=== PATIENT | female | born 1965 | race Caucasian/White ===

== ENCOUNTER 2017-10-03 17:16 | Inpatient (IN) ==
[2017-10-03] MEDS ORDERED: Pantoprazole Inj 40 MG Vial IV.PUSH ONE (17:38)
[2017-10-03] MEDS ORDERED: Sod Chloride 0.9% Inj 1,000 ML IV.SIG ONE ×3 (17:38→18:44)
[2017-10-03] MEDS ORDERED: Pantoprazole Inj 80 MG in Sodium Chlor 0.9% Inj 35 ML IV.SIG ONE (17:41)
--- NOTE | 2017-10-03 17:49 | ED ---
HPI General Chief complaint: Abdominal Pain Stated complaint: GI Bleed Time Seen by Provider: 10/03/17 17:38 Source: patient and EMS Mode of arrival: EMS Limitations: no limitations History of Present Illness HPI Narrative: Patient is a 52-year-old female presenting to the emergency department for evaluation of GI bleed. Patient has been having coffee-ground emesis and bleeding from her rectum since 3:00 this morning. Patient complains of abdominal pain that is dull, constant. Symptom onset was sudden, symptoms are moderate in nature. EMS stated the patient's blood pressure was in the 80s systolic when they arrived on scene. Patient received a liter of IV fluids in route to the hospital. Patient denies any shortness of breath, chest pain, dizziness, headache, alcohol consumption. She states she had a history of GI bleed many years ago. MD complaint: coffee ground emesis and gross hematochezia Onset (ago): hour(s) Pain Consistency: colicky Severity: mild Relieving factors: none Exacerbating factors: none Context: history of GI bleed and liver disease Associated symptoms: denies other symptoms Related Data Home Medications Medication Instructions Recorded Confirmed No Known Home Medications 10/03/17 10/03/17 Allergies Allergy/AdvReac Type Severity Reaction Status Date / Time No Known Allergies Allergy Verified 10/03/17 17:38 Review of Systems ROS: all other systems reviewed are negative PMFSH History History Provided By: Patient Medical History Medical History Cirrhosis (Chronic) Family History Family History Other No significant family history Social History Social History Second Hand Smoke Exposure: Yes Smoking Status: Current every day smoker Tobacco Type: Cigarettes How Often Do You Have a Drink Containing Alcohol: 2 to 4 times a month Recent Travel in [facility] within the Last 8 Weeks: No Recent Out of Country Travel within the Last 8 Weeks: No Exam Narrative Exam Narrative: GENERAL: Well-developed, well-nourished, alert female. Presenting in no acute distress. SKIN: Focused skin assessment warm/dry. Jaundiced HEAD: Atraumatic. Normocephalic. EYES: Pupils equal and round. Positive scleral icterus. No injection or drainage. ENT: No nasal bleeding or discharge. Mucous membranes pink and moist. NECK: Trachea midline. No JVD. CARDIOVASCULAR: Tachycardic. No murmur appreciated. RESPIRATORY: No accessory muscle use. Clear to auscultation. Breath sounds equal bilaterally. GASTROINTESTINAL: Abdomen soft, mildly tender to palpation diffusely, nondistended. Hepatic and splenic margins not palpable. No rebound, no guarding MUSCULOSKELETAL: No obvious deformities. No clubbing. No cyanosis. No edema. RECTAL EXAM: No masses or tenderness, alfred bright red blood noted, positive Hemoccult NEUROLOGICAL: Awake and alert. No obvious cranial nerve deficits. Motor grossly within normal limits. Normal speech. PSYCHIATRIC: Appropriate mood and affect; insight and judgment normal. Procedures EJ/Peripheral Line Neck R: Time Out Performed: No Skin Cleansed in Sterile Fashion: Yes Size (gauge): 20 IV Secured and Dressing Applied: Yes Patient Tolerated Procedure: well Course Reevaluation(s) Reevaluation #1: Patient's hemoglobin is 4.7, 4 units of blood will be ordered Reevaluation #2: Dr. Aquino is in the ER evaluating patient - plan for blood transfusion, fft - will stabilize patient prior to EGD Case reviewed with Dr. Carter who accepts pt to service Initial Documented Vital Signs Pulse Oximetry 100 10/03/17 17:38 Last Documented Vital Signs Temperature 98 F 10/03/17 18:01 Pulse Rate 94 H 10/03/17 20:07 Respiratory Rate 14 10/03/17 20:07 Blood Pressure 101/54 L 10/03/17 20:07 Pulse Oximetry 100 10/03/17 20:07 Critical Care Time Critical Care Time: Yes Total Critical Care Time: 60 Attestation: Aggregate critical care time was 60 minutes. Time to perform other separately billable procedures was not included in the critical care time. My time did not include minutes spent treating any other patients simultaneously or on activities that did not directly contribute to the patient's treatment. The services I provided to this patient were to treat and/or prevent clinically significant deterioration that could result in: , decompensation, deterioration I provided critical care services requiring my management, as noted below: Chart data review, documentation time, medication orders and management, vital sign assessments/reviewing monitor data, ordering and reviewing lab tests, ordering and interpreting/reviewing x-rays and diagnostic studies, care of the patient and discussion of the patient with the admitting physicians. Medical Decision Making TAIWO Attestation TAIWO supervised visit: Yes Attestation: I, Dr. Ramos, have reviewed the advance practice practitioner's documentation and am in agreement, met with the patient face to face, made the diagnosis, and the medical decision making was done by me. *My assessment and Findings: GI bleed - patient with bright red blood per rectum as well as coffee ground since 3am this morning. Patient is tachycardic and hypotensive, 4 units of blood was ordered. Patient will be started on octreotide drip as well as Protonix drip, Protonix bolus was administered. IV fluid was ordered. Case discussed with Dr. Aquino with GI who will see patient in consult. MDM Narrative Medical decision making narrative: Patient is a 52-year-old female presenting with bright red blood from her rectum and coffee-ground emesis it started 3 AM this morning. Patient was borderline tachycardic and hypotensive on arrival. Labs imaging ordered and pending. IV access was established by EMS. Patient was placed on telemetry monitoring continuous pulse oximetry per type and screen ordered, Hemoccult was positive. Protonix bolus and drip was ordered. Discussed with my attending physician, she recommended Sandostatin drip. Please see her documentation. Dr. Ramos also discussed with machine wiper who accepted admission. Admit orders placed. Lab Data Result diagrams: 10/03/17 18:30 10/03/17 18:30 Lab Results 10/03/17 10/03/17 10/03/17 Range/Units 18:30 18:30 18:30 WBC 12.8 H (4.0-11.0) th/mm3 RBC 1.33 L (4.00-5.30) mil/mm3 Hgb 4.7 L* (11.6-15.3) gm/dL POC Hgb (Calc) (11.6-15.3) g/dL Hct 14.6 L* (35.0-46.0) % POC Hct (35-46.0) % MCV 109.6 H (80.0-100.0) fL MCH 35.0 H (27.0-34.0) pg MCHC 31.9 L (32.0-36.0) % RDW 18.4 H (11.6-17.2) % Plt Count 94 L (150-450) th/mm3 MPV 7.9 (7.0-11.0) fL Prelim Diff (Auto) Slide review pending Neut % (Auto) 84.0 H (16.0-70.0) % Lymph % (Auto) 9.2 (9.0-44.0) % [place] % (Auto) 5.4 (0.0-8.0) % Eos % (Auto) 0.6 (0.0-4.0) % Baso % (Auto) 0.8 (0.0-2.0) % Neut # (Auto) 10.8 H (1.8-7.7) th/mm3 Lymph # (Auto) 1.2 (1.0-4.8) th/mm3 [place] # (Auto) 0.7 (0.0-0.9) th/mm3 Eos # (Auto) 0.1 (0.0-0.4) th/mm3 Baso # (Auto) 0.1 (0.0-0.2) th/mm3 WBC Differential . Diff Scan Auto diff confirmed Differential Comment . POC Sodium (137-144) mmol/L Sodium 146 H (136-145) meq/L POC Potassium (3.6-5.0) mmol/L Potassium 4.9 (3.5-5.1) meq/L POC Chloride (102-111) mmol/L Chloride 115 H (98-107) meq/L Carbon Dioxide 18.9 L (21.0-32.0) meq/L Anion Gap 12 (5-15) meq/L POC BUN (5-21) mg/dL BUN 38 H (7-18) mg/dL Creatinine 0.85 (0.50-1.00) mg/dL POC Creatinine (0.6-1.3) mg/dL Estimated GFR 70 L (>89) mL/min POC Glucose (68-110) mg/dL Random Glucose 104 (74-106) mg/dL Calcium 6.9 L* (8.5-10.1) mg/dL Prot Corrected Calcium 8.9 (8.5-10.1) mg/dL Magnesium 1.6 (1.5-2.5) mg/dL Total Bilirubin 3.9 H (0.2-1.0) mg/dL AST 37 (15-37) U/L ALT 15 (10-53) U/L Alkaline Phosphatase 227 H (45-117) U/L Ammonia (11-32) mcmol/L Total Protein 3.6 L (6.4-8.2) g/dL Albumin 1.2 L (3.4-5.0) g/dL Lipase 404 H (73-393) U/L Serum Alcohol Less than 3 (0-5) mg/dL Blood Type AB Negative MTS Gel Crossmatch 10/03/17 10/03/17 10/03/17 Range/Units 18:30 18:30 18:45 WBC (4.0-11.0) th/mm3 RBC (4.00-5.30) mil/mm3 Hgb (11.6-15.3) gm/dL POC Hgb (Calc) (11.6-15.3) g/dL Hct (35.0-46.0) % POC Hct Less than 15.0 L* (35-46.0) % MCV (80.0-100.0) fL MCH (27.0-34.0) pg MCHC (32.0-36.0) % RDW (11.6-17.2) % Plt Count (150-450) th/mm3 MPV (7.0-11.0) fL Prelim Diff (Auto) Neut % (Auto) (16.0-70.0) % Lymph % (Auto) (9.0-44.0) % [place] % (Auto) (0.0-8.0) % Eos % (Auto) (0.0-4.0) % Baso % (Auto) (0.0-2.0) % Neut # (Auto) (1.8-7.7) th/mm3 Lymph # (Auto) (1.0-4.8) th/mm3 [place] # (Auto) (0.0-0.9) th/mm3 Eos # (Auto) (0.0-0.4) th/mm3 Baso # (Auto) (0.0-0.2) th/mm3 WBC Differential Diff Scan Differential Comment POC Sodium 144 (137-144) mmol/L Sodium (136-145) meq/L POC Potassium 4.8 (3.6-5.0) mmol/L Potassium (3.5-5.1) meq/L POC Chloride 112 H (102-111) mmol/L Chloride (98-107) meq/L Carbon Dioxide (21.0-32.0) meq/L Anion Gap (5-15) meq/L POC BUN 35 H (5-21) mg/dL BUN (7-18) mg/dL Creatinine (0.50-1.00) mg/dL POC Creatinine 0.8 (0.6-1.3) mg/dL Estimated GFR (>89) mL/min POC Glucose 107 (68-110) mg/dL Random Glucose (74-106) mg/dL Calcium (8.5-10.1) mg/dL Prot Corrected Calcium (8.5-10.1) mg/dL Magnesium (1.5-2.5) mg/dL Total Bilirubin (0.2-1.0) mg/dL AST (15-37) U/L ALT (10-53) U/L Alkaline Phosphatase (45-117) U/L Ammonia 67 H (11-32) mcmol/L Total Protein (6.4-8.2) g/dL Albumin (3.4-5.0) g/dL Lipase (73-393) U/L Serum Alcohol (0-5) mg/dL Blood Type MTS Gel Crossmatch See Detail 10/03/17 Range/Units 18:53 WBC (4.0-11.0) th/mm3 RBC (4.00-5.30) mil/mm3 Hgb (11.6-15.3) gm/dL POC Hgb (Calc) (11.6-15.3) g/dL Hct (35.0-46.0) % POC Hct (35-46.0) % MCV (80.0-100.0) fL MCH (27.0-34.0) pg MCHC (32.0-36.0) % RDW (11.6-17.2) % Plt Count (150-450) th/mm3 MPV (7.0-11.0) fL Prelim Diff (Auto) Neut % (Auto) (16.0-70.0) % Lymph % (Auto) (9.0-44.0) % [place] % (Auto) (0.0-8.0) % Eos % (Auto) (0.0-4.0) % Baso % (Auto) (0.0-2.0) % Neut # (Auto) (1.8-7.7) th/mm3 Lymph # (Auto) (1.0-4.8) th/mm3 [place] # (Auto) (0.0-0.9) th/mm3 Eos # (Auto) (0.0-0.4) th/mm3 Baso # (Auto) (0.0-0.2) th/mm3 WBC Differential Diff Scan Differential Comment POC Sodium (137-144) mmol/L Sodium (136-145) meq/L POC Potassium (3.6-5.0) mmol/L Potassium (3.5-5.1) meq/L POC Chloride (102-111) mmol/L Chloride (98-107) meq/L Carbon Dioxide (21.0-32.0) meq/L Anion Gap (5-15) meq/L POC BUN (5-21) mg/dL BUN (7-18) mg/dL Creatinine (0.50-1.00) mg/dL POC Creatinine (0.6-1.3) mg/dL Estimated GFR (>89) mL/min POC Glucose (68-110) mg/dL Random Glucose (74-106) mg/dL Calcium (8.5-10.1) mg/dL Prot Corrected Calcium (8.5-10.1) mg/dL Magnesium (1.5-2.5) mg/dL Total Bilirubin (0.2-1.0) mg/dL AST (15-37) U/L ALT (10-53) U/L Alkaline Phosphatase (45-117) U/L Ammonia (11-32) mcmol/L Total Protein (6.4-8.2) g/dL Albumin (3.4-5.0) g/dL Lipase (73-393) U/L Serum Alcohol (0-5) mg/dL Blood Type MTS Gel Crossmatch See Detail Discharge Plan Discharge Disposition Patient Disposition: 30 Still Patient Discharge Condition Condition: Critical Discharge Details Diagnosis: Acute GI bleeding Physicians Team ED Provider: Conchis Ramos ED Midlevel Provider: Jennifer Vanegas Primary Care Provider: UNKNOWN, Attending Provider: Myron Stapleton Other Providers: Aquiles Joyner Status ED Status: Admitted Patient
[2017-10-03] MEDS ORDERED: Octreotide Inj 500 MCG in Sodium Chlor 0.9% Inj 500 ML IV.CONT SCH (18:00)
[2017-10-03 18:50] LABS: Baso # (Auto) 0.1 th/mm3 (0.0-0.2); Baso % (Auto) 0.8 % (0.0-2.0); Eos # (Auto) 0.1 th/mm3 (0.0-0.4); Eos % (Auto) 0.6 % (0.0-4.0); Lymph # (Auto) 1.2 th/mm3 (1.0-4.8); Lymph % (Auto) 9.2 % (9.0-44.0); Mean Corpuscular HGB Conc 31.9 % (32.0-36.0); Mean Corpuscular Volume 109.6 fL (80.0-100.0); Mean Platelet Volume 7.9 fL (7.0-11.0); Mono # (Auto) 0.7 th/mm3 (0.0-0.9); Mono % (Auto) 5.4 % (0.0-8.0); Neut # (Auto) 10.8 th/mm3 (1.8-7.7); Platelet Count 94 th/mm3 (150-450); Red Blood Count 1.33 mil/mm3 (4.00-5.30); Red Cell Distribution Width 18.4 % (11.6-17.2); White Blood Count 12.8 th/mm3 (4.0-11.0)
[2017-10-03 18:53] LABS: Hematocrit 14.6 % (35.0-46.0); Hemoglobin 4.7 gm/dL (11.6-15.3)
[2017-10-03 19:33] LABS: Alanine Aminotransferase 15 U/L (10-53); Albumin 1.2 g/dL (3.4-5.0); Alkaline Phosphatase 227 U/L (45-117); Anion Gap 12 meq/L (5-15); Aspartate Aminotransferase 37 U/L (15-37); Blood Urea Nitrogen 38 mg/dL (7-18); Calcium 6.9 mg/dL (8.5-10.1); Carbon Dioxide 18.9 meq/L (21.0-32.0); Chloride 115 meq/L (98-107); Glomerular Filtration Rate 70 mL/min (>89); Glucose,Random 104 mg/dL (74-106); Lipase 404 U/L (73-393); Magnesium 1.6 mg/dL (1.5-2.5); Potassium 4.9 meq/L (3.5-5.1); Sodium 146 meq/L (136-145); Total Protein 3.6 g/dL (6.4-8.2)
[2017-10-03] MEDS: Pantoprazole Inj 80 MG in Sodium Chlor 0.9% Inj 100 ML IV.CONT SCH (19:49)
[2017-10-03] MEDS: Octreotide Inj 500 MCG in Sodium Chlor 0.9% Inj 500 ML IV.CONT SCH (19:49)
[2017-10-03] MEDS ORDERED: Bisacodyl 10 MG Supp RECTAL PRN (20:08)
[2017-10-03] MEDS ORDERED: Acetaminophen 325 MG Tablet PO PRN (20:08)
--- NOTE | 2017-10-03 20:18 | P.HPCC ---
History of Present Illness Service: Critical care medicine Primary Care Physician: UNKNOWN Chief Complaint: Hematemesis/ History of Present Illness: This is a 52-year-old female. Date of admission 10/03/2017. Past medical history includes hepatitis, colitis, acute blood loss anemia and prior GI bleed. According to mother at bedside, patient has been having coffee- ground emesis and bleeding from her rectum since 3:00 this morning. She states she paid housekeeping $20 to clean up the amount of blood. Patient complains of abdominal pain that is dull, constant. Symptom onset was sudden, symptoms are moderate in nature. EMS stated the patient's blood pressure was in the 80s systolic when they arrived on scene. Patient received a liter of IV fluids in route to the hospital. Received an additional 3 L normal saline in ED. Hemoglobin was noted to be 4.7. Platelets are low at 94. Currently receiving 40 PRBCs and 2 FFP stat. Patient is placed on a pantoprazole drip 8 mg an hour after receiving 80 mg IV bolus and an octreotide drip at 50 mcg/h. Denied chest pain or shortness of breath. Currently hemodynamics stabilize. Patient is also to have an elevated ammonia level and elevated lipase with a low albumin and magnesium. Inpatient Certification: I certify that the inpatient services were ordered in accordance with Medicare regulations governing the order. This includes certification that hospital inpatient services are reasonable and necessary and in the case of services not specified as inpatient-only under 42 CFR 419.22(n), that they are appropriately provided as inpatient services in accordance to with the 2-midnight benchmark under 43 CFR 412.3(e) Estimated Total Length of Stay (Days): 7 Plans for Post Hospital Care: Not yet determined Review of Systems unobtainable due to mental condition PMFSH - History History Provided By: Patient - Medical History Medical History: Medical History (Last Reviewed 10/03/17 @ 20:16 by Myron Stapleton MD) Anemia Colitis GI bleed History of blood transfusion Liver cirrhosis - Surgical History Surgical History: Surgical History (Last Reviewed 10/03/17 @ 20:16 by Myron Stapleton MD) H/O shoulder surgery - Family History Family History: Family History (Last Updated 10/03/17 @ 20:16 by Myron Stapleton MD) Other No significant family history - Tobacco History Second Hand Smoke Exposure: Yes Tobacco Use In Past 30 Days: Yes Smoking Status: Current every day smoker Tobacco Type: Cigarettes - Alcohol History How Often Do You Have a Drink Containing Alcohol: 2 to 4 times a month - Travel History Recent Travel in the [place] Within the Last 8 Weeks: No Recent Travel Out of the Country Within the Last 8 Weeks: No - Immunization History Tetanus Immunization: Unsure Hx Influenza Vaccine This Season: Yes Medications and Allergies Active Medications: Active Medications Acetaminophen (Tylenol) 650 mg PO Q6H PRN PRN Reason: PAIN 1-10 AND/OR FEVER >101F Al Hydroxide/Mg Hydroxide (Milk Of Magnesia Liq) 30 ml PO Q12H PRN PRN Reason: Mild Constipation Albuterol (Albuterol Neb (Delgado)) 2.5 mg NEB Q2HR NEB PRN PRN Reason: SHORTNESS OF BREATH/WHEEZING Albuterol (Duoneb Neb (Prn)) 1 ampul NEB Q4HR NEB DELGADO Bisacodyl (Dulcolax Supp) 10 mg RECTAL DAILY PRN PRN Reason: SEVERE CONSITIPATION Chlorhexidine Gluconate (Chlorhexidine 2% Cloth) 3 pack TOPICAL DAILY@0400 DELGADO Stop: 10/09/17 03:59 Chlorhexidine Gluconate (Chlorhexidine 2% Cloth) 3 pack TOPICAL DAILY@0400 PRN PRN Reason: Extra cloth needed Stop: 10/09/17 03:59 Pantoprazole Sodium 80 mg/ (Sodium Chloride) 100 mls @ 10 mls/hr IV.CONT CONT DELGADO Last Admin: 10/03/17 19:49 Dose: 10 mls/hr Octreotide Acetate 500 mcg/ (Sodium Chloride) 500.5 mls @ 50.05 mls/hr IV.CONT .Q10H DELGADO Last Admin: 10/03/17 19:49 Dose: 50 mcg/hr, 50.05 mls/hr Sodium Chloride (Ns Inj) 1,000 mls @ 84 mls/hr IV.CONT .[id number] DELGADO Lactulose (Lactulose Liq) 30 ml PO DAILY PRN PRN Reason: SEVERE CONSITIPATION Senna/Docusate Sodium (Shira-Colace) 1 tab PO BID [facility] Sennosides (Senokot) 17.2 mg PO Q12H PRN PRN Reason: Moderate Constipation Sodium Chloride (Ns Flush) 2 ml IV.FLUSH PRN PRN PRN Reason: FLUSH AFTER USING IV ACCESS Last Admin: 10/03/17 19:10 Dose: 2 ml Sodium Chloride (Ns Flush) 2 ml IV.FLUSH BID DELGADO Sodium Chloride (Ns Flush) 2 ml IV.FLUSH PRN PRN PRN Reason: FLUSH AFTER USING IV ACCESS Allergies Allergy/AdvReac Type Severity Reaction Status Date / Time No Known Allergies Allergy Verified 10/03/17 17:38 Home Medications Medication Instructions Recorded Confirmed Type No Known Home Medications 10/03/17 10/03/17 History Results - Labs CBC & Chem 7: 10/03/17 18:30 10/03/17 18:30 Labs: Short CBC 10/03/17 Range/Units 18:30 WBC 12.8 H (4.0-11.0) th/mm3 Hgb 4.7 L* (11.6-15.3) gm/dL Hct 14.6 L* (35.0-46.0) % Plt Count 94 L (150-450) th/mm3 BMP 10/03/17 18:30 Sodium 146 H Potassium 4.9 Chloride 115 H Carbon Dioxide 18.9 L BUN 38 H Creatinine 0.85 Calcium 6.9 L* Liver Function 10/03/17 Range/Units 18:30 Total Bilirubin 3.9 H (0.2-1.0) mg/dL AST 37 (15-37) U/L ALT 15 (10-53) U/L Alkaline Phosphatase 227 H (45-117) U/L Albumin 1.2 L (3.4-5.0) g/dL Exam Vital signs: Vital Signs 10/03/17 17:38 10/03/17 17:52 10/03/17 18:01 Temperature 98 F 98 F Pulse Rate 90 99 H Respiratory Rate 18 15 Blood Pressure 97/53 L 97/53 L Pulse Oximetry 98 99 98 10/03/17 18:35 10/03/17 20:07 Temperature Pulse Rate 94 H Respiratory Rate 14 Blood Pressure 101/54 L Pulse Oximetry 97 100 Intake & Output 10/03/17 10/03/17 10/04/17 06:59 18:59 06:59 Weight 65 kg - Constitutional mild distress, disheveled, somnolent - Routine HEENT Exam Head: Present: normocephalic, atraumatic Eye: Present: EOMI, PERRL, normal accommodation ENT: Present: mucous membranes dry, nares patent - Routine Neck Exam Present: supple. Absent: JVD, carotid bruit - Routine Chest/Breast/Axilla Exam Chest wall: Absent: tenderness Breast: Absent: tenderness Axillae: Absent: lymphadenopathy - Routine Respiratory Exam Present: CTA bilaterally. Absent: rhonchi, wheezes, crackles - Routine Cardiovascular Exam Present: RRR, S1, S2. Absent: murmur - Routine Abdominal Exam Present: soft, normoactive bowel sounds, tenderness, guarding. Absent: distended, rebound - Routine Extremities Exam Absent: cyanosis, clubbing, edema - Routine Skin Exam Present: intact - Routine Neurological Exam Present: alert, CN II-XII intact. Absent: oriented X3, sensory deficit, motor deficit Septic Shock Reassessment Septic shock perfusion: reassessment completed Caprini VTE Risk Assessment Caprini VTE Risk Assessment: Moderate/High Risk (score >= 2) VTE Pharmacological Exception Reason: Hemorrhage Caprini Risk Assessment Model: Point Value = 1 Point Value = 2 Point Value = 3 Point Value = 5 Age 41-60 Minor surgery BMI > 25 kg/m2 Swollen legs Varicose veins or History of unexplained or recurrent spontaneous Oral contraceptives or hormone replacement Sepsis (< 1 month) Serious lung disease, including pneumonia (< 1 month) Abnormal pulmonary function Acute myocardial infarction Congestive heart failure (< 1 month) History of inflammatory bowel disease Medical patient at bed rest Age 61-74 Arthroscopic surgery Major open surgery (> 45 min) Laparoscopic surgery (> 45 min) Malignancy Confined to bed (> 72 hours) Immobilizing plaster cast Central venous access Age >= 75 History of VTE Family history of VTE Factor V Leiden Prothrombin [id number] Lupus anticoagulant Anticardiolipin antibodies Elevated serum homocysteine Heparin-induced thrombocytopenia Other congenital or acquired thrombophilia Stroke (< 1 month) Elective arthroplasty Hip, pelvis, or leg fracture Acute spinal cord injury (< 1 month) Prophylaxis Regimen: Total Risk Factor Score Risk Level Prophylaxis Regimen 0-1 Low Early ambulation 2 Moderate Order ONE of the following: *Sequential Compression Device (SCD) *Heparin 5000 units SQ BID 3-4 Higher Order ONE of the following medications: *Heparin 5000 units SQ TID *Enoxaparin/Lovenox 40 mg SQ daily (WT < 150 kg, CrCl > 30 mL/min) *Enoxaparin/Lovenox 30 mg SQ daily (WT < 150 kg, CrCl > 10-29 mL/min) *Enoxaparin/Lovenox 30 mg SQ BID (WT < 150 kg, CrCl > 30 mL/min) AND/OR *Sequential Compression Device (SCD) 5 or more Highest Order ONE of the following medications: *Heparin 5000 units SQ TID (Preferred with Epidurals) *Enoxaparin/Lovenox 40 mg SQ daily (WT < 150 kg, CrCl > 30 mL/min) *Enoxaparin/Lovenox 30 mg SQ daily (WT < 150 kg, CrCl > 10-29 mL/min) *Enoxaparin/Lovenox 30 mg SQ BID (WT < 150 kg, CrCl > 30 mL/min) AND *Sequential Compression Device (SCD) Assessment and Plan - Assessment and Plan Plan: Neuro/Psych: Acute encephalopathy secondary elevated ammonia Patient is currently arousable and does follow commands. SEE GI for ammoniated workup Vitamin bag daily 3 dosages Monitor for disease CV: Hypotension secondary to acute GI bleed Status post 3 L crystalloid resuscitation. Currently normal saline at 84 cc an hour Lactic was 1.9 CPK and troponin ordered. Currently receiving 4 PRBCs and 2 FFP. As needed phenylephrine drip ordered Resp: Ongoing tobaccoism Cessation will be encouraged with self education/evaluation booklet provided when able Nasal cannula to maintain saturations greater than equal to 92% Incentive spirometry while awake Albuterol/ipratropium aerosols every 4 hours with albuterol aerosols every 2 hours as needed for dyspnea GI: History of cirrhosis History of colitis Hypoalbuminemia Hyper ammonia Elevated lipase Elevated total bilirubin Currently on pantoprazole drip at 8 mg an hour after receiving 80 mg bolus and octreotide drip at 50 mcg/h. GI consultation. EGD in a.m. once stabilized Coags are currently pending Bilirubin components in a.m. Hepatitis panel in a.m. CPK pending : Straight cath as needed. Endo: Sliding scale insulin with Accu-Cheks to maintain euglycemia Renal: Creatinine currently within normal limits Monitor urine output accurate I's and O's Heme: Leukocytosis macrocytic anemia/acute blood loss Thrombocytopenia 4 PRBCs/2 FFP order along with 10 mg vitamin K IV 1 now. Coags are pending. Hemoglobin every 6 hours. ID: Start on ceftriaxone with upper GI bleed MSK: PT evaluate and treat FEN: Hypomagnesia Replace electrolytes per ICU electrolyte protocol Access -Utilize peripheral IV. Central line if indicated Prophylaxis -GI -pantoprazole drip - -DVT SCD/holding pharmacological prophylaxis light of acute hemorrhage 35 minutes critical care time Code Status: Full code Discussed Condition With: Mother and patient at bedside. ED physician. Care plan discussed and all questions answered.
[2017-10-03] MEDS ORDERED: Magnesium Sulfate Inj 2 GM in Sodium Chlor 0.9% Inj 96 ML IV.SIG PRN (20:21)
[2017-10-03] MEDS ORDERED: Potassium Chlor 20 mEq Premix 20 MEQ/100 ML PIGGYBACK IV.SIG PRN ×2 (20:21)
[2017-10-03] MEDS ORDERED: Magnesium Oxide 400 MG Tablet PO PRN (20:21)
[2017-10-03] MEDS ORDERED: Sodium Phosphate Inj 30 MMOL in Sodium Chlor 0.9% Inj 250 ML IV.SIG PRN (20:21)
[2017-10-03] MEDS ORDERED: Potassium Phosphate 500 MG Soluble Tablet PO PRN ×2 (20:21)
[2017-10-03] MEDS ORDERED: Magnesium Sulfate Inj 4 GM in Sodium Chlor 0.9% Inj 92 ML IV.SIG PRN (20:21)
[2017-10-03] MEDS ORDERED: Potassium Chlor 40 mEq Premix 40 MEQ/100 ML PIGGYBACK IV.SIG PRN ×2 (20:21)
[2017-10-03] MEDS ORDERED: Potassium Chloride 25 MEQ Effervescent Tablet PO PRN (20:21)
[2017-10-03] MEDS ORDERED: Potassium Phosphate Inj 30 MMOL in Sodium Chlor 0.9% Inj 250 ML IV.SIG PRN (20:21)
[2017-10-03] MEDS: Sod Chloride 0.9% Inj 1,000 ML IV.CONT SCH (20:32)
--- NOTE | 2017-10-03 21:23 | P.PCN ---
Date of procedure: 10/03/17 Pre-op diagnosis: Acute blood loss anemia Post-op diagnosis: same Procedure: DATE: 10/03/2017 CENTRAL LINE PLACEMENT: Right internal jugular vein. Ultrasound-guided INDICATION: Central venous access CONSENT Informed consent for procedure was obtained from patient. DESCRIPTION OF THE PROCEDURE The patient was placed in supine position. The skin was cleansed with Chloraprep. Additional barrier precautions included large sterile drape, sterile gloves, sterile gown, face mask, and hat. 1 % lidocaine was used for local anesthesia. Under direct ultrasound guidance and on initial attempt, the vein was accessed with an introducer needle. The guide wire was advanced and the tract was dilated. Using Seldinger technique a 7.5 [place] 10 cm antimicrobial coated triple-lumen catheter was advanced to a depth of 10 centimeters. The guide wire was removed. All ports had good return of dark venous blood and flushed easily with saline. The central line was secured with 2.0 silk. A sterile dressing with antibiotic disc was applied. ESTIMATED BLOOD LOSS: Minimal COMPLICATIONS: No apparent complications. STAT chest x-ray pending at time of dictation
[2017-10-03 21:25] LABS: INR 3.8 Ratio; Prothrombin Time 37.8 sec (9.8-11.6)
[2017-10-03] MEDS ORDERED: Phytonadione Inj 10 MG in Sodium Chlor 0.9% Inj 50 ML IV.SIG ONE (21:25)
--- NOTE | 2017-10-03 21:43 | XR ---
EXAM DATE: 10/03/2017 9:37 PM EDT AGE/SEX: 52 years / Female INDICATIONS: Central line placement. CLINICAL DATA: This is the patient's initial encounter. Patient reports that signs and symptoms have been present for 1 day and indicates a pain score of Nonresponsive. MEDICAL/SURGICAL HISTORY: Non-responsive. Non-responsive. COMPARISON: No prior exams available for comparison. FINDINGS: A single AP portable erect view of the chest was obtained and demonstrates a right internal jugular c entral venous line in place with the tip projected over the superior vena cava. There is no pneumotho rax. There is mild hazy opacity at the left lung base. The patient is status post left shoulder arthr oplasty. The heart size is at the upper limits of normal. CONCLUSION: 1. Right internal jugular central venous line with no pneumothorax. 2. The heart size is at the upper limits of normal. 3. Mild hazy opacity at the left lung base. Electronically signed by: Jim Bazan MD 10/03/2017 9:41 PM EDT
[2017-10-03] MEDS ORDERED: Phenylephrine Inj 160 MG in Dextrose 5% in Water Inj 484 ML IV.CONT PRN ×2 (22:00)
[2017-10-03] MEDS: Multivitamin Inj 10 ML, Thiamine Inj 100 MG, Folic Acid Inj 1 MG in Sodium Chlor 0.9% I... IV.SIG SCH (22:18)
[2017-10-03] MEDS: Senna/Docusate Sodium 8.6/50 MG Tablet PO SCH (22:34)
[2017-10-03] MEDS: Albumin Human 25% Inj 100 ML IV.SIG SCH (23:26)
[2017-10-04] MEDS: Insulin NovoLOG Aspart Correctional Sugar Inj SQ SCH ×4 (01:23→18:27)
[2017-10-04] MEDS: rifAXIMin 550 MG Tablet PO SCH ×3 (01:23→20:12)
[2017-10-04 03:30] LABS: Baso # (Auto) 0.1 th/mm3 (0.0-0.2); Baso % (Auto) 0.6 % (0.0-2.0); Eos % (Auto) 0.2 % (0.0-4.0); Hematocrit 26.1 % (35.0-46.0); Hemoglobin 8.8 gm/dL (11.6-15.3); Lymph # (Auto) 1.3 th/mm3 (1.0-4.8); Lymph % (Auto) 7.8 % (9.0-44.0); Mean Corpuscular HGB Conc 33.9 % (32.0-36.0); Mean Corpuscular Hemoglobin 28.3 pg (27.0-34.0); Mean Corpuscular Volume 83.4 fL (80.0-100.0); Mean Platelet Volume 8.2 fL (7.0-11.0); Mono # (Auto) 1.6 th/mm3 (0.0-0.9); Neut # (Auto) 13.1 th/mm3 (1.8-7.7); Neut % (Auto) 81.4 % (16.0-70.0); Platelet Count 53 th/mm3 (150-450); Red Blood Count 3.13 mil/mm3 (4.00-5.30); Red Cell Distribution Width 22.6 % (11.6-17.2); White Blood Count 16.1 th/mm3 (4.0-11.0)
[2017-10-04] MEDS: Chlorhexidine Gluconate 2% 1 Pack (2 Cloths) TOPICAL SCH (03:38)
[2017-10-04] MEDS: Albumin Human 25% Inj 100 ML IV.SIG SCH ×2 (03:39→11:38)
[2017-10-04 03:41] LABS: Activated Partial Thrombo Time 35.7 sec (24.3-30.1); INR 1.7 Ratio
[2017-10-04] MEDS ORDERED: Chlorhexidine Gluconate 2% 1 Pack (2 Cloths) TOPICAL PRN (04:00)
[2017-10-04 04:26] LABS: Albumin 2.2 g/dL (3.4-5.0); Calcium 6.7 mg/dL (8.5-10.1); Carbon Dioxide 17.1 meq/L (21.0-32.0); Phosphorus 4.8 mg/dL (2.5-4.9); Potassium 4.4 meq/L (3.5-5.1)
[2017-10-04 04:33] LABS: Platelet Morphology Normal (Normal)
[2017-10-04] MEDS: Octreotide Inj 500 MCG in Sodium Chlor 0.9% Inj 500 ML IV.CONT SCH ×2 (05:24→14:01)
[2017-10-04] MEDS: Pantoprazole Inj 80 MG in Sodium Chlor 0.9% Inj 100 ML IV.CONT SCH ×2 (05:24→16:59)
[2017-10-04 06:57] LABS: Magnesium 1.4 mg/dL (1.5-2.5)
[2017-10-04 07:06] LABS: Thyroid Stimulating Hormone 0.535 uIU/mL (0.358-3.740); Troponin I 0.3 ng/mL (0.02-0.05)
[2017-10-04 07:18] LABS: Creatine Kinase MB 10.3 ng/mL (0.5-3.6)
[2017-10-04] MEDS ORDERED: Sodium Chlor 0.9% Inj 250 ML IV.SIG SCH ×2 (08:00→14:00)
--- NOTE | 2017-10-04 08:05 | P.CONGI ---
History of Present Illness Consult date: 10/04/17 Consult reason: GIB, cirrhosis Chief complaint: GI Bleed History of Present Illness: This is a 52 yo F with PMH significant for cirrhosis, pt lives in [place] and is currently on vacation, states she is being managed by GI Dr. Randle in [place], [place] who she believes she last saw about 3 months ago. Pt presented to the ER yesterday with complaints of hematemesis and melena that began yesterday morning at about 3 am. Reports multiple episodes of both, melena associated with fecal incontinence. Denies abdominal pain or swelling. Pt is a very poor historian and can not recall her last EGD. She thinks her last colonoscopy was 3 months ago but does not recall any abnormal findings. Pt states the cirrhosis is secondary to history of ETOH abuse, states no alcohol in 8 months. She is not a liver transplant list, reports that she is not sick enough. Pt denies any current medication being prescribed for her cirrhosis. States history of hepatitis but she is unsure which type and does not remember ever being treated for it. Denies tattoos, history of IV drug use and unprotected sex, states for multiple years. <Margaret Santos - Last Filed: 10/04/17 07:52> Review of Systems Gastrointestinal: Reports black, tarry stools, Reports incontinent of stools, Reports nausea, Reports vomiting, Reports vomiting blood, Denies abdominal pain <Margaret Santos - Last Filed: 10/04/17 07:52> PMFSH - History History Provided By: Patient - Medical History Medical History: Medical History (Last Reviewed 10/03/17 @ 20:16 by Myron Stapleton MD) Anemia Colitis GI bleed History of blood transfusion Liver cirrhosis - Surgical History Surgical History: Surgical History (Last Reviewed 10/03/17 @ 20:16 by Myron Stapleton MD) H/O shoulder surgery - Family History Family History: Family History (Last Updated 10/03/17 @ 20:16 by Myron Stapleton MD) Other No significant family history - Tobacco History Second Hand Smoke Exposure: Yes Tobacco Use In Past 30 Days: Yes Smoking Status: Current every day smoker Tobacco Type: Cigarettes - Alcohol History How Often Do You Have a Drink Containing Alcohol: 2 to 4 times a month - Substance Use History Substance History: Active Abuse - Travel History Recent Travel in the [facility] Within the Last 8 Weeks: No Recent Travel Out of the Country Within the Last 8 Weeks: No - Immunization History Tetanus Immunization: Unsure Hx Influenza Vaccine This Season: Yes <ElladanielMaxMargaret - Last Filed: 10/04/17 07:52> - Medical History Medical History: Medical History (Last Reviewed 10/03/17 @ 20:16 by Myron Stapleton MD) Anemia Colitis GI bleed History of blood transfusion Liver cirrhosis - Surgical History Surgical History: Surgical History (Last Reviewed 10/03/17 @ 20:16 by Myron Stapleton MD) H/O shoulder surgery - Family History Family History: Family History (Last Updated 10/03/17 @ 20:16 by Myron Stapleton MD) Other No significant family history <Aquiles Joyner - Last Filed: 10/04/17 09:11> Medications and Allergies Active Medications: Active Medications Al Hydroxide/Mg Hydroxide (Milk Of Magnesia Liq) 30 ml PO Q12H PRN PRN Reason: Mild Constipation Albuterol (Albuterol Neb (Prn)) 2.5 mg NEB Q2HR NEB PRN PRN Reason: SHORTNESS OF BREATH/WHEEZING Albuterol (Duoneb Neb ([facility])) 1 ampul NEB Q4HR NEB [facility] Last Admin: 10/04/17 03:49 Dose: Not Given Bisacodyl (Dulcolax Supp) 10 mg RECTAL DAILY PRN PRN Reason: SEVERE CONSITIPATION Chlorhexidine Gluconate (Chlorhexidine 2% Cloth) 3 pack TOPICAL DAILY@0400 [facility] Stop: 10/09/17 03:59 Last Admin: 10/04/17 03:38 Dose: 3 pack Chlorhexidine Gluconate (Chlorhexidine 2% Cloth) 3 pack TOPICAL DAILY@0400 PRN PRN Reason: Extra cloth needed Stop: 10/09/17 03:59 Dextrose (D50w Vial) 50 ml IV.PUSH UNSCH PRN PRN Reason: PER HYPOGLYCEMIA PROTOCOL Glucagon (Glucagon Inj) 1 mg OTHER PRN PRN PRN Reason: for Hypoglycemia Protocol Pantoprazole Sodium 80 mg/ (Sodium Chloride) 100 mls @ 10 mls/hr IV.CONT CONT [facility] Last Admin: 10/04/17 05:24 Dose: 10 mls/hr Octreotide Acetate 500 mcg/ (Sodium Chloride) 500.5 mls @ 50.05 mls/hr IV.CONT .Q10H [facility] Last Admin: 10/04/17 05:24 Dose: 50 mcg/hr, 50.05 mls/hr Sodium Chloride (Ns Inj) 1,000 mls @ 84 mls/hr IV.CONT .[id number] [facility] Last Admin: 10/03/17 20:32 Dose: 84 mls/hr Multivitamins 10 ml/ Thiamine HCl 100 mg/ Folic Acid 1 mg/Sodium Chloride 511.2 mls @ 125 mls/hr IV.SIG Q24H [facility] Stop: 10/06/17 01:06 Last Infusion: 10/04/17 02:53 Dose: Infused Magnesium Sulfate Inj 4 gm/ (Sodium Chloride) 100 mls @ 50 mls/hr IV.SIG UNSCH PRN PRN Reason: For Magnesium 0.9 - 1.1 mg/dL Magnesium Sulfate Inj 2 gm/ (Sodium Chloride) 100 mls @ 50 mls/hr IV.SIG UNSCH PRN PRN Reason: For Magnesium 1.2 - 1.6 mg/dL Potassium Chloride (Kcl 40 Meq Premix Inj) 40 meq in 100 mls @ 25 mls/hr IV.SIG Q2H PRN PRN Reason: For Potassium 2.8 - 3.2 mEq/L Potassium Chloride (Kcl 20 Meq Premix Inj) 20 meq in 100 mls @ 50 mls/hr IV.SIG Q2H PRN PRN Reason: For Potassium 3.3 - 3.5 mEq/L Potassium Chloride (Kcl 40 Meq Premix Inj) 40 meq in 100 mls @ 25 mls/hr IV.SIG UNSCH PRN PRN Reason: For Potassium 3.3 - 3.5 mEq/L Potassium Chloride (Kcl 20 Meq Premix Inj) 20 meq in 100 mls @ 50 mls/hr IV.SIG Q2H PRN PRN Reason: For Potassium 2.8 - 3.2 mEq/L Potassium Phosphate 30 mmol/ (Sodium Chloride) 260 mls @ 42 mls/hr IV.SIG UNSCH PRN PRN Reason: SEE LABEL COMMENTS Sodium Phosphate 30 mmol/ (Sodium Chloride) 260 mls @ 42 mls/hr IV.SIG UNSCH PRN PRN Reason: For Phosphorus < 2.5 mg/dL Ceftriaxone Sodium 1,000 mg/ (Sodium Chloride) 100 mls @ 200 mls/hr IV.SIG Q24H [facility] Phenylephrine HCl 160 mg/ (Dextrose) 500 mls @ 7.5 mls/hr IV.CONT TITRATE PRN; Protocol PRN Reason: See Protocol Albumin Human (Flexbumin 25% Inj) 100 mls @ 60 mls/hr IV.SIG Q6H [facility] Stop: 10/04/17 11:39 Last Admin: 10/04/17 03:39 Dose: Not Given Sodium Chloride (Ns Inj) 250 mls @ 15 mls/hr IV.SIG ONCE [facility] Stop: 10/05/17 00:39 Insulin Aspart (Novolog Insulin Correctional Sugar Inj) 0 unit SQ Q6HR [facility]; Protocol Last Admin: 10/04/17 05:03 Dose: Not Given Lactulose (Lactulose Liq) 30 ml PO DAILY PRN PRN Reason: SEVERE CONSITIPATION Lactulose (Lactulose Liq) 30 ml PO BID [facility] Last Admin: 10/03/17 22:33 Dose: Not Given Magnesium Oxide (Mag-Ox) 800 mg PO UNSCH PRN PRN Reason: For Magnesium 1.2 - 1.6 mg/dL Potassium Bicarb/Potassium Chloride (K-Lyte Cl Eff) 50 meq PO UNSCH PRN PRN Reason: For Potassium 3.3 - 3.5 mEq/L Potassium Phosphate (K-Phos Original) 2,000 mg PO Q4H PRN PRN Reason: Phosphorus Less Than 2.5 mg/dL Potassium Phosphate (K-Phos Original) 2,000 mg PO UNSCH PRN PRN Reason: SEE LABEL COMMENTS Rifaximin (Xifaxan) 550 mg PO Q12HR [facility] Last Admin: 10/04/17 01:23 Dose: Not Given Senna/Docusate Sodium (Shira-Colace) 1 tab PO BID [facility] Last Admin: 10/03/17 22:34 Dose: Not Given Sennosides (Senokot) 17.2 mg PO Q12H PRN PRN Reason: Moderate Constipation Sodium Chloride (Ns Flush) 2 ml IV.FLUSH BID [facility] Last Admin: 10/03/17 22:18 Dose: 2 ml Sodium Chloride (Ns Flush) 2 ml IV.FLUSH PRN PRN PRN Reason: FLUSH AFTER USING IV ACCESS Sodium Chloride (Ns Flush) 0 ml IV.FLUSH DAILY [facility] <Bonnette,Margaret - Last Filed: 10/04/17 07:52> Active Medications: Active Medications Al Hydroxide/Mg Hydroxide (Milk Of Melly Liq) 30 ml PO Q12H PRN PRN Reason: Mild Constipation Albuterol (Albuterol Neb (Prn)) 2.5 mg NEB Q2HR NEB PRN PRN Reason: SHORTNESS OF BREATH/WHEEZING Albuterol (Duoneb Neb (Delgado)) 1 ampul NEB Q4HR NEB [facility] Last Admin: 10/04/17 08:22 Dose: Not Given Bisacodyl (Dulcolax Supp) 10 mg RECTAL DAILY PRN PRN Reason: SEVERE CONSITIPATION Chlorhexidine Gluconate (Chlorhexidine 2% Cloth) 3 pack TOPICAL DAILY@0400 [facility] Stop: 10/09/17 03:59 Last Admin: 10/04/17 03:38 Dose: 3 pack Chlorhexidine Gluconate (Chlorhexidine 2% Cloth) 3 pack TOPICAL DAILY@0400 PRN PRN Reason: Extra cloth needed Stop: 10/09/17 03:59 Dextrose (D50w Vial) 50 ml IV.PUSH UNSCH PRN PRN Reason: PER HYPOGLYCEMIA PROTOCOL Glucagon (Glucagon Inj) 1 mg OTHER PRN PRN PRN Reason: for Hypoglycemia Protocol Pantoprazole Sodium 80 mg/ (Sodium Chloride) 100 mls @ 10 mls/hr IV.CONT CONT [facility] Last Admin: 10/04/17 05:24 Dose: 10 mls/hr Octreotide Acetate 500 mcg/ (Sodium Chloride) 500.5 mls @ 50.05 mls/hr IV.CONT .Q10H [facility] Last Admin: 10/04/17 05:24 Dose: 50 mcg/hr, 50.05 mls/hr Sodium Chloride (Ns Inj) 1,000 mls @ 84 mls/hr IV.CONT .[id number] [facility] Last Admin: 10/03/17 20:32 Dose: 84 mls/hr Multivitamins 10 ml/ Thiamine HCl 100 mg/ Folic Acid 1 mg/Sodium Chloride 511.2 mls @ 125 mls/hr IV.SIG Q24H [facility] Stop: 10/06/17 01:06 Last Infusion: 10/04/17 02:53 Dose: Infused Magnesium Sulfate Inj 4 gm/ (Sodium Chloride) 100 mls @ 50 mls/hr IV.SIG UNSCH PRN PRN Reason: For Magnesium 0.9 - 1.1 mg/dL Magnesium Sulfate Inj 2 gm/ (Sodium Chloride) 100 mls @ 50 mls/hr IV.SIG UNSCH PRN PRN Reason: For Magnesium 1.2 - 1.6 mg/dL Potassium Chloride (Kcl 40 Meq Premix Inj) 40 meq in 100 mls @ 25 mls/hr IV.SIG Q2H PRN PRN Reason: For Potassium 2.8 - 3.2 mEq/L Potassium Chloride (Kcl 20 Meq Premix Inj) 20 meq in 100 mls @ 50 mls/hr IV.SIG Q2H PRN PRN Reason: For Potassium 3.3 - 3.5 mEq/L Potassium Chloride (Kcl 40 Meq Premix Inj) 40 meq in 100 mls @ 25 mls/hr IV.SIG UNSCH PRN PRN Reason: For Potassium 3.3 - 3.5 mEq/L Potassium Chloride (Kcl 20 Meq Premix Inj) 20 meq in 100 mls @ 50 mls/hr IV.SIG Q2H PRN PRN Reason: For Potassium 2.8 - 3.2 mEq/L Potassium Phosphate 30 mmol/ (Sodium Chloride) 260 mls @ 42 mls/hr IV.SIG UNSCH PRN PRN Reason: SEE LABEL COMMENTS Sodium Phosphate 30 mmol/ (Sodium Chloride) 260 mls @ 42 mls/hr IV.SIG UNSCH PRN PRN Reason: For Phosphorus < 2.5 mg/dL Ceftriaxone Sodium 1,000 mg/ (Sodium Chloride) 100 mls @ 200 mls/hr IV.SIG Q24H [facility] Phenylephrine HCl 160 mg/ (Dextrose) 500 mls @ 7.5 mls/hr IV.CONT TITRATE PRN; Protocol PRN Reason: See Protocol Albumin Human (Flexbumin 25% Inj) 100 mls @ 60 mls/hr IV.SIG Q6H [facility] Stop: 10/04/17 11:39 Last Admin: 10/04/17 03:39 Dose: Not Given Sodium Chloride (Ns Inj) 250 mls @ 15 mls/hr IV.SIG ONCE [facility] Stop: 10/05/17 00:39 Insulin Aspart (Novolog Insulin Correctional Sugar Inj) 0 unit SQ Q6HR [facility]; Protocol Last Admin: 10/04/17 05:03 Dose: Not Given Lactulose (Lactulose Liq) 30 ml PO DAILY PRN PRN Reason: SEVERE CONSITIPATION Lactulose (Lactulose Liq) 30 ml PO BID [facility] Last Admin: 10/03/17 22:33 Dose: Not Given Magnesium Oxide (Mag-Ox) 800 mg PO UNSCH PRN PRN Reason: For Magnesium 1.2 - 1.6 mg/dL Potassium Bicarb/Potassium Chloride (K-Lyte Cl Eff) 50 meq PO UNSCH PRN PRN Reason: For Potassium 3.3 - 3.5 mEq/L Potassium Phosphate (K-Phos Original) 2,000 mg PO Q4H PRN PRN Reason: Phosphorus Less Than 2.5 mg/dL Potassium Phosphate (K-Phos Original) 2,000 mg PO UNSCH PRN PRN Reason: SEE LABEL COMMENTS Rifaximin (Xifaxan) 550 mg PO Q12HR [facility] Last Admin: 10/04/17 01:23 Dose: Not Given Senna/Docusate Sodium (Shira-Colace) 1 tab PO BID [facility] Last Admin: 10/03/17 22:34 Dose: Not Given Sennosides (Senokot) 17.2 mg PO Q12H PRN PRN Reason: Moderate Constipation Sodium Chloride (Ns Flush) 2 ml IV.FLUSH BID [facility] Last Admin: 10/03/17 22:18 Dose: 2 ml Sodium Chloride (Ns Flush) 2 ml IV.FLUSH PRN PRN PRN Reason: FLUSH AFTER USING IV ACCESS Sodium Chloride (Ns Flush) 0 ml IV.FLUSH DAILY [facility] <Aquiles Joyner - Last Filed: 10/04/17 09:11> Allergies Allergy/AdvReac Type Severity Reaction Status Date / Time No Known Allergies Allergy Verified 10/03/17 17:38 Home Medications Medication Instructions Recorded Confirmed Type No Known Home Medications 10/03/17 10/03/17 History Exam Vital signs: Vital Signs 10/03/17 17:38 10/03/17 17:52 10/03/17 18:01 Temperature 98 F 98 F Pulse Rate 90 99 H Respiratory Rate 18 15 Blood Pressure 97/53 L 97/53 L Pulse Oximetry 98 99 98 10/03/17 18:35 10/03/17 19:00 10/03/17 20:07 Temperature Pulse Rate 94 H Respiratory Rate 14 Blood Pressure 101/54 L Pulse Oximetry 97 97 100 10/03/17 20:34 10/03/17 21:00 08/13/18 21:44 Temperature 97.6 F 97.6 F Pulse Rate 100 H 105 H 106 H Respiratory Rate 17 20 17 Blood Pressure 94/66 L 88/51 L 76/42 L Pulse Oximetry 100 100 100 10/03/17 22:00 10/03/17 22:22 10/03/17 22:41 Temperature 97.8 F 97.8 F Pulse Rate 107 H 105 H 100 H Respiratory Rate 20 20 20 Blood Pressure 82/48 L 89/54 L 90/53 L Pulse Oximetry 100 100 100 10/03/17 23:00 10/03/17 23:19 10/04/17 00:00 Temperature 97.9 F Pulse Rate 106 H 126 H 124 H Respiratory Rate 20 20 20 Blood Pressure 93/55 L 89/55 L 127/66 Pulse Oximetry 100 100 100 10/04/17 00:13 10/04/17 00:44 10/04/17 01:00 Temperature 97.9 F 98.1 F Pulse Rate 124 H 124 H 116 H Respiratory Rate 20 22 20 Blood Pressure 127/66 152/67 H 141/64 H Pulse Oximetry 100 100 100 10/04/17 01:20 10/04/17 02:00 10/04/17 03:00 Temperature Pulse Rate 123 H 109 H 113 H Respiratory Rate 20 20 20 Blood Pressure 151/72 H 172/82 H 170/87 H Pulse Oximetry 95 100 100 10/04/17 04:00 10/04/17 05:00 10/04/17 06:00 Temperature Pulse Rate 113 H 109 H 112 H Respiratory Rate 20 20 20 Blood Pressure 147/77 H 140/67 128/59 L Pulse Oximetry 100 100 100 Intake & Output 10/03/17 10/04/17 10/04/17 18:59 06:59 18:59 Intake Total 6734.7 / 6734.7 Output Total 600 / 600 Balance 6134.7 / 6134.7 Weight 65 kg 67.8 kg Intake: IV 4297.7 / 4297.7 SandoSTATIN Inj 500 MCG In NS 500.5 / 500.5 Inj 500 ML @ 50 MCG/HR 50.05 mls/hr IV.CONT .Q10H [facility] Rx#: [id number] Protonix Inj 80 MG In NS Inj 100 / 100 100 ML @ 10 mls/hr IV.CONT CONT [facility] Rx#:[id number] Flexbumin 25% Inj 100 ML @ 60 100 / 100 mls/hr IV.SIG Q6H [facility] Rx#: [id number] MVI-12 Inj 10 ML Thiamine Inj 511.2 / 511.2 100 MG Folvite Inj 1 MG In NS Inj 500 ML @ 125 mls/hr IV.SIG Q24H [facility] Rx#:[id number] Protonix Inj 80 MG In NS Inj 35 35 / 35 ML @ 420 mls/hr IV.SIG [facility] Rx#:[id number] Vitamin K Inj 10 MG In NS Inj 51 / 51 50 ML @ 102 mls/hr IV.SIG ONCE ONE Rx#:[id number] NS Inj 1,000 ML @ Wide Open IV. 3000 / 3000 SIG BOLUS ONE Rx#:[id number] Oral 0 / 0 Intake (Blood Product) Amt 2437 / 2437 Plasma Thawed 5 Day Cp2d Unit 308 / 308 [id number] Plasma Thawed 5 Day Cp2d Unit 317 / 317 [id number] Pre-Pooled Cryo Thawed 10units 212 / 212 Unit [id number] Rbc As-3 Leukoreduced Unit 400 / 400 [id number] Rbc As-3 Leukoreduced Unit 400 / 400 [id number] Rbc As-3 Leukoreduced Unit 400 / 400 [id number] Rbc As-3 Leukoreduced Unit 400 / 400 [id number] Output: Urine 0 / 0 Emesis 400 / 400 Gastric Drainage 200 / 200 Right Nare Nasogastric Tube 200 / 200 Other: Date of Last Bowel Movement 10/04/17 # Incontinent Bowel Movements 1 # Emeses 3 Weight On Admission 64.7 kg - Constitutional no acute distress - Routine HEENT Exam Head: Present: normocephalic, atraumatic Eye: Present: conjunctival icterus - Routine Respiratory Exam Absent: accessory muscle use - Routine Abdominal Exam Present: soft, normoactive bowel sounds. Absent: tenderness - Routine Skin Exam Present: dry, warm, jaundice - Routine Neurological Exam Present: alert, oriented X3 <Margaret Santos - Last Filed: 10/04/17 07:52> Vital signs: Vital Signs 10/03/17 17:38 10/03/17 17:52 10/03/17 18:01 Temperature 98 F 98 F Pulse Rate 90 99 H Respiratory Rate 18 15 Blood Pressure 97/53 L 97/53 L Pulse Oximetry 98 99 98 10/03/17 18:35 10/03/17 19:00 10/03/17 20:07 Temperature Pulse Rate 94 H Respiratory Rate 14 Blood Pressure 101/54 L Pulse Oximetry 97 97 100 10/03/17 20:34 10/03/17 21:00 10/03/17 21:44 Temperature 97.6 F 97.6 F Pulse Rate 100 H 105 H 106 H Respiratory Rate 17 20 17 Blood Pressure 94/66 L 88/51 L 76/42 L Pulse Oximetry 100 100 100 10/03/17 22:00 10/03/17 22:22 10/03/17 22:41 Temperature 97.8 F 97.8 F Pulse Rate 107 H 105 H 100 H Respiratory Rate 20 20 20 Blood Pressure 82/48 L 89/54 L 90/53 L Pulse Oximetry 100 100 100 10/03/17 23:00 10/03/17 23:19 10/04/17 00:00 Temperature 97.9 F Pulse Rate 106 H 126 H 124 H Respiratory Rate 20 20 20 Blood Pressure 93/55 L 89/55 L 127/66 Pulse Oximetry 100 100 100 10/04/17 00:13 10/04/17 00:44 10/04/17 01:00 Temperature 97.9 F 98.1 F Pulse Rate 124 H 124 H 116 H Respiratory Rate 20 22 20 Blood Pressure 127/66 152/67 H 141/64 H Pulse Oximetry 100 100 100 10/04/17 01:20 10/04/17 02:00 10/04/17 03:00 Temperature Pulse Rate 123 H 109 H 113 H Respiratory Rate 20 20 20 Blood Pressure 151/72 H 172/82 H 170/87 H Pulse Oximetry 95 100 100 10/04/17 04:00 10/04/17 05:00 10/04/17 06:00 Temperature Pulse Rate 113 H 109 H 112 H Respiratory Rate 20 20 20 Blood Pressure 147/77 H 140/67 128/59 L Pulse Oximetry 100 100 100 10/04/17 08:14 10/04/17 08:21 Temperature 98.2 F Pulse Rate 114 H Respiratory Rate 30 H Blood Pressure 123/60 Pulse Oximetry 95 93 L Intake & Output 10/03/17 10/04/17 10/04/17 18:59 06:59 18:59 Intake Total 6734.7 / 6734.7 Output Total 600 / 600 Balance 6134.7 / 6134.7 Weight 65 kg 67.8 kg Intake: IV 4297.7 / 4297.7 SandoSTATIN Inj 500 MCG In NS 500.5 / 500.5 Inj 500 ML @ 50 MCG/HR 50.05 mls/hr IV.CONT .Q10H [facility] Rx#: [id number] Protonix Inj 80 MG In NS Inj 100 / 100 100 ML @ 10 mls/hr IV.CONT CONT [facility] Rx#:[id number] Flexbumin 25% Inj 100 ML @ 60 100 / 100 mls/hr IV.SIG Q6H [facility] Rx#: [id number] MVI-12 Inj 10 ML Thiamine Inj 511.2 / 511.2 100 MG Folvite Inj 1 MG In NS Inj 500 ML @ 125 mls/hr IV.SIG Q24H [facility] Rx#:[id number] Protonix Inj 80 MG In NS Inj 35 35 / 35 ML @ 420 mls/hr IV.SIG BOLUS ONE Rx#:[id number] Vitamin K Inj 10 MG In NS Inj 51 / 51 50 ML @ 102 mls/hr IV.SIG ONCE [facility] Rx#:[id number] NS Inj 1,000 ML @ Wide Open IV. 3000 / 3000 SIG [facility]OLUS ONE Rx#:[id number] Oral 0 / 0 Intake (Blood Product) Amt 2437 / 2437 Plasma Thawed 5 Day Cp2d Unit 308 / 308 [id number] Plasma Thawed 5 Day Cp2d Unit 317 / 317 [id number] Pre-Pooled Cryo Thawed 10units 212 / 212 Unit [id number] Rbc As-3 Leukoreduced Unit 400 / 400 [id number] Rbc As-3 Leukoreduced Unit 400 / 400 [id number] Rbc As-3 Leukoreduced Unit 400 / 400 [id number] Rbc As-3 Leukoreduced Unit 400 / 400 [id number] Output: Urine 0 / 0 Emesis 400 / 400 Gastric Drainage 200 / 200 Right Nare Nasogastric Tube 200 / 200 Other: Date of Last Bowel Movement 10/04/17 # Incontinent Bowel Movements 1 # Emeses 3 Weight On Admission 64.7 kg <Aquiles Joyner - Last Filed: 10/04/17 09:11> Results - Labs CBC & Chem 7: 10/04/17 03:20 10/04/17 03:20 Labs: Laboratory Results - last 24 hr 10/03/17 10/03/17 10/03/17 18:30 18:30 18:30 WBC 12.8 H RBC 1.33 L Hgb 4.7 L* POC Hgb (Calc) Hct 14.6 L* POC Hct MCV 109.6 H MCH 35.0 H MCHC 31.9 L RDW 18.4 H Plt Count 94 L MPV 7.9 Prelim Diff (Auto) Slide review pending Neut % (Auto) 84.0 H Lymph % (Auto) 9.2 [place] % (Auto) 5.4 Eos % (Auto) 0.6 Baso % (Auto) 0.8 Neut # (Auto) 10.8 H Lymph # (Auto) 1.2 [place] # (Auto) 0.7 Eos # (Auto) 0.1 Baso # (Auto) 0.1 WBC Differential . Diff Scan Auto diff confirmed Differential Comment . Platelet Estimate Platelet Morphology PT INR APTT Fibrinogen POC Sodium Sodium 146 H POC Potassium Potassium 4.9 POC Chloride Chloride 115 H Carbon Dioxide 18.9 L Anion Gap 12 POC BUN BUN 38 H Creatinine 0.85 POC Creatinine Estimated GFR 70 L POC Glucose Random Glucose 104 Lactic Acid Calcium 6.9 L* Prot Corrected Calcium 8.9 Phosphorus Magnesium 1.6 Total Bilirubin 3.9 H AST 37 ALT 15 Alkaline Phosphatase 227 H Ammonia Total Creatine Kinase CK-MB (CK-2) CK-MB (CK-2) % Troponin I Total Protein 3.6 L Albumin 1.2 L Prealbumin Lipase 404 H TSH Nasal Screen MRSA (PCR) Serum Alcohol Less than 3 Blood Type AB Negative Antibody Screen Positive Ab Screen Tube Method Negative Crossmatch MTS Gel Crossmatch Blood Bank Comment 10/03/17 10/03/17 10/03/17 18:30 18:30 18:45 WBC RBC Hgb POC Hgb (Calc) Hct POC Hct Less than 15.0 L* MCV MCH MCHC RDW Plt Count MPV Prelim Diff (Auto) Neut % (Auto) Lymph % (Auto) [place] % (Auto) Eos % (Auto) Baso % (Auto) Neut # (Auto) Lymph # (Auto) [place] # (Auto) Eos # (Auto) Baso # (Auto) WBC Differential Diff Scan Differential Comment Platelet Estimate Platelet Morphology PT INR APTT Fibrinogen POC Sodium 144 Sodium POC Potassium 4.8 Potassium POC Chloride 112 H Chloride Carbon Dioxide Anion Gap POC BUN 35 H BUN Creatinine POC Creatinine 0.8 Estimated GFR POC Glucose 107 Random Glucose Lactic Acid Calcium Prot Corrected Calcium Phosphorus Magnesium Total Bilirubin AST ALT Alkaline Phosphatase Ammonia 67 H Total Creatine Kinase CK-MB (CK-2) CK-MB (CK-2) % Troponin I Total Protein Albumin Prealbumin Lipase TSH Nasal Screen MRSA (PCR) Serum Alcohol Blood Type Antibody Screen Ab Screen Tube Method Crossmatch See Detail MTS Gel Crossmatch See Detail Blood Bank Comment 10/03/17 10/03/17 10/03/17 18:53 19:11 20:20 WBC RBC Hgb POC Hgb (Calc) Hct POC Hct MCV MCH MCHC RDW Plt Count MPV Prelim Diff (Auto) Neut % (Auto) Lymph % (Auto) [place] % (Auto) Eos % (Auto) Baso % (Auto) Neut # (Auto) Lymph # (Auto) [place] # (Auto) Eos # (Auto) Baso # (Auto) WBC Differential Diff Scan Differential Comment Platelet Estimate Platelet Morphology PT 37.8 H INR 3.8 APTT 64.0 H Fibrinogen Less than 50 L* POC Sodium Sodium POC Potassium Potassium POC Chloride Chloride Carbon Dioxide Anion Gap POC BUN BUN Creatinine POC Creatinine Estimated GFR POC Glucose Random Glucose Lactic Acid Calcium Prot Corrected Calcium Phosphorus Magnesium Total Bilirubin AST ALT Alkaline Phosphatase Ammonia Total Creatine Kinase CK-MB (CK-2) CK-MB (CK-2) % Troponin I Total Protein Albumin Prealbumin Lipase TSH Nasal Screen MRSA (PCR) Serum Alcohol Blood Type Antibody Screen Ab Screen Tube Method Crossmatch See Detail MTS Gel Crossmatch See Detail Blood Bank Comment 10/03/17 10/03/17 10/03/17 20:20 20:45 21:24 WBC RBC Hgb POC Hgb (Calc) Hct POC Hct MCV MCH MCHC RDW Plt Count MPV Prelim Diff (Auto) Neut % (Auto) Lymph % (Auto) [place] % (Auto) Eos % (Auto) Baso % (Auto) Neut # (Auto) Lymph # (Auto) [place] # (Auto) Eos # (Auto) Baso # (Auto) WBC Differential Diff Scan Differential Comment Platelet Estimate Platelet Morphology PT INR APTT Fibrinogen Cancelled POC Sodium Sodium POC Potassium Potassium POC Chloride Chloride Carbon Dioxide Anion Gap POC BUN BUN Creatinine POC Creatinine Estimated GFR POC Glucose Random Glucose Lactic Acid Calcium Prot Corrected Calcium Phosphorus Magnesium Total Bilirubin AST ALT Alkaline Phosphatase Ammonia Total Creatine Kinase CK-MB (CK-2) CK-MB (CK-2) % Troponin I Total Protein Albumin Prealbumin Lipase TSH Nasal Screen MRSA (PCR) Mrsa detected Serum Alcohol Blood Type Antibody Screen Ab Screen Tube Method Crossmatch [employer] Gel Crossmatch Blood Bank Comment 10/04/17 10/04/17 10/04/17 01:18 03:20 03:20 WBC 16.1 H RBC 3.13 L Hgb 8.8 L D POC Hgb (Calc) Hct 26.1 L POC Hct MCV 83.4 D MCH 28.3 MCHC 33.9 RDW 22.6 H D Plt Count 53 L D MPV 8.2 Prelim Diff (Auto) Slide review pending Neut % (Auto) 81.4 H Lymph % (Auto) 7.8 L [place] % (Auto) 10.0 H Eos % (Auto) 0.2 Baso % (Auto) 0.6 Neut # (Auto) 13.1 H Lymph # (Auto) 1.3 [place] # (Auto) 1.6 H Eos # (Auto) 0.0 Baso # (Auto) 0.1 WBC Differential . Diff Scan Auto diff confirmed Differential Comment . Platelet Estimate Low L Platelet Morphology Normal PT 17.0 H D INR 1.7 APTT 35.7 H D Fibrinogen POC Sodium Sodium POC Potassium Potassium POC Chloride Chloride Carbon Dioxide Anion Gap POC BUN BUN Creatinine POC Creatinine Estimated GFR POC Glucose 123 H Random Glucose Lactic Acid Calcium Prot Corrected Calcium Phosphorus Magnesium Total Bilirubin AST ALT Alkaline Phosphatase Ammonia Total Creatine Kinase CK-MB (CK-2) CK-MB (CK-2) % Troponin I Total Protein Albumin Prealbumin Lipase TSH Nasal Screen MRSA (PCR) Serum Alcohol Blood Type Antibody Screen Ab Screen Tube Method Crossmatch VIS Research Gel Crossmatch Blood Bank Comment 10/04/17 10/04/17 10/04/17 03:20 03:20 03:20 WBC RBC Hgb POC Hgb (Calc) Hct POC Hct MCV MCH MCHC RDW Plt Count MPV Prelim Diff (Auto) Neut % (Auto) Lymph % (Auto) [place] % (Auto) Eos % (Auto) Baso % (Auto) Neut # (Auto) Lymph # (Auto) [place] # (Auto) Eos # (Auto) Baso # (Auto) WBC Differential Diff Scan Differential Comment Platelet Estimate Platelet Morphology PT INR APTT Fibrinogen 150 L POC Sodium Sodium 153 H POC Potassium Potassium 4.4 POC Chloride Chloride 121 H Carbon Dioxide 17.1 L Anion Gap 15 POC BUN BUN 37 H Creatinine 0.97 POC Creatinine Estimated GFR 60 L POC Glucose Random Glucose 132 H Lactic Acid 9.8 H* Calcium 6.7 L* Prot Corrected Calcium 8.4 L Phosphorus 4.8 Magnesium Total Bilirubin 6.5 H AST 57 H ALT 22 Alkaline Phosphatase 128 H Ammonia Total Creatine Kinase CK-MB (CK-2) CK-MB (CK-2) % Troponin I Total Protein 4.0 L Albumin 2.2 L D Prealbumin 9 L Lipase TSH Nasal Screen MRSA (PCR) Serum Alcohol Blood Type Antibody Screen Ab Screen Tube Method Crossmatch [email or web address] Blood Bank Comment 10/04/17 10/04/17 06:30 06:30 WBC RBC Hgb POC Hgb (Calc) Hct POC Hct MCV MCH MCHC RDW Plt Count MPV Prelim Diff (Auto) Neut % (Auto) Lymph % (Auto) [place] % (Auto) Eos % (Auto) Baso % (Auto) Neut # (Auto) Lymph # (Auto) [place] # (Auto) Eos # (Auto) Baso # (Auto) WBC Differential Diff Scan Differential Comment Platelet Estimate Platelet Morphology PT INR APTT Fibrinogen POC Sodium Sodium POC Potassium Potassium POC Chloride Chloride Carbon Dioxide Anion Gap POC BUN BUN Creatinine POC Creatinine Estimated GFR POC Glucose Random Glucose Lactic Acid Calcium Prot Corrected Calcium Phosphorus Magnesium 1.4 L Total Bilirubin AST ALT Alkaline Phosphatase Ammonia 83 H Total Creatine Kinase 340 H CK-MB (CK-2) 10.3 H CK-MB (CK-2) % 3.0 Troponin I 0.30 H Total Protein Albumin Prealbumin Lipase TSH 0.535 Nasal Screen MRSA (PCR) Serum Alcohol Blood Type Antibody Screen Ab Screen Tube Method Crossmatch [email or web address] Blood Bank Comment - Imaging Impressions Chest X-Ray 10/03/17 00:00 CONCLUSION: 1. Right internal jugular central venous line with no pneumothorax. 2. The heart size is at the upper limits of normal. 3. Mild hazy opacity at the left lung base. <Margaret Santos - Last Filed: 10/04/17 07:52> - Labs CBC & Chem 7: 10/04/17 03:20 10/04/17 03:20 Labs: Laboratory Results - last 24 hr 10/03/17 10/03/17 10/03/17 18:30 18:30 18:30 WBC 12.8 H RBC 1.33 L Hgb 4.7 L* POC Hgb (Calc) Hct 14.6 L* POC Hct MCV 109.6 H MCH 35.0 H MCHC 31.9 L RDW 18.4 H Plt Count 94 L MPV 7.9 Prelim Diff (Auto) Slide review pending Neut % (Auto) 84.0 H Lymph % (Auto) 9.2 [place] % (Auto) 5.4 Eos % (Auto) 0.6 Baso % (Auto) 0.8 Neut # (Auto) 10.8 H Lymph # (Auto) 1.2 [place] # (Auto) 0.7 Eos # (Auto) 0.1 Baso # (Auto) 0.1 WBC Differential . Diff Scan Auto diff confirmed Differential Comment . Platelet Estimate Platelet Morphology PT INR APTT Fibrinogen POC Sodium Sodium 146 H POC Potassium Potassium 4.9 POC Chloride Chloride 115 H Carbon Dioxide 18.9 L Anion Gap 12 POC BUN BUN 38 H Creatinine 0.85 POC Creatinine Estimated GFR 70 L POC Glucose Random Glucose 104 Lactic Acid Calcium 6.9 L* Prot Corrected Calcium 8.9 Phosphorus Magnesium 1.6 Total Bilirubin 3.9 H AST 37 ALT 15 Alkaline Phosphatase 227 H Ammonia Total Creatine Kinase CK-MB (CK-2) CK-MB (CK-2) % Troponin I Total Protein 3.6 L Albumin 1.2 L Prealbumin Lipase 404 H TSH Nasal Screen MRSA (PCR) Serum Alcohol Less than 3 Blood Type AB Negative Antibody Screen Positive Ab Screen Tube Method Negative Crossmatch MTS Gel Crossmatch Blood Bank Comment 10/03/17 10/03/17 10/03/17 18:30 18:30 18:45 WBC RBC Hgb POC Hgb (Calc) Hct POC Hct Less than 15.0 L* MCV MCH MCHC RDW Plt Count MPV Prelim Diff (Auto) Neut % (Auto) Lymph % (Auto) [place] % (Auto) Eos % (Auto) Baso % (Auto) Neut # (Auto) Lymph # (Auto) [place] # (Auto) Eos # (Auto) Baso # (Auto) WBC Differential Diff Scan Differential Comment Platelet Estimate Platelet Morphology PT INR APTT Fibrinogen POC Sodium 144 Sodium POC Potassium 4.8 Potassium POC Chloride 112 H Chloride Carbon Dioxide Anion Gap POC BUN 35 H BUN Creatinine POC Creatinine 0.8 Estimated GFR POC Glucose 107 Random Glucose Lactic Acid Calcium Prot Corrected Calcium Phosphorus Magnesium Total Bilirubin AST ALT Alkaline Phosphatase Ammonia 67 H Total Creatine Kinase CK-MB (CK-2) CK-MB (CK-2) % Troponin I Total Protein Albumin Prealbumin Lipase TSH Nasal Screen MRSA (PCR) Serum Alcohol Blood Type Antibody Screen Ab Screen Tube Method Crossmatch See Detail MTS Gel Crossmatch See Detail Blood Bank Comment 10/03/17 10/03/17 10/03/17 18:53 19:11 20:20 WBC RBC Hgb POC Hgb (Calc) Hct POC Hct MCV MCH MCHC RDW Plt Count MPV Prelim Diff (Auto) Neut % (Auto) Lymph % (Auto) [place] % (Auto) Eos % (Auto) Baso % (Auto) Neut # (Auto) Lymph # (Auto) [place] # (Auto) Eos # (Auto) Baso # (Auto) WBC Differential Diff Scan Differential Comment Platelet Estimate Platelet Morphology PT 37.8 H INR 3.8 APTT 64.0 H Fibrinogen Less than 50 L* POC Sodium Sodium POC Potassium Potassium POC Chloride Chloride Carbon Dioxide Anion Gap POC BUN BUN Creatinine POC Creatinine Estimated GFR POC Glucose Random Glucose Lactic Acid Calcium Prot Corrected Calcium Phosphorus Magnesium Total Bilirubin AST ALT Alkaline Phosphatase Ammonia Total Creatine Kinase CK-MB (CK-2) CK-MB (CK-2) % Troponin I Total Protein Albumin Prealbumin Lipase TSH Nasal Screen MRSA (PCR) Serum Alcohol Blood Type Antibody Screen Ab Screen Tube Method Crossmatch See Detail MTS Gel Crossmatch See Detail Blood Bank Comment 10/03/17 10/03/17 10/03/17 20:20 20:45 21:24 WBC RBC Hgb POC Hgb (Calc) Hct POC Hct MCV MCH MCHC RDW Plt Count MPV Prelim Diff (Auto) Neut % (Auto) Lymph % (Auto) [place] % (Auto) Eos % (Auto) Baso % (Auto) Neut # (Auto) Lymph # (Auto) [place] # (Auto) Eos # (Auto) Baso # (Auto) WBC Differential Diff Scan Differential Comment Platelet Estimate Platelet Morphology PT INR APTT Fibrinogen Cancelled POC Sodium Sodium POC Potassium Potassium POC Chloride Chloride Carbon Dioxide Anion Gap POC BUN BUN Creatinine POC Creatinine Estimated GFR POC Glucose Random Glucose Lactic Acid Calcium Prot Corrected Calcium Phosphorus Magnesium Total Bilirubin AST ALT Alkaline Phosphatase Ammonia Total Creatine Kinase CK-MB (CK-2) CK-MB (CK-2) % Troponin I Total Protein Albumin Prealbumin Lipase TSH Nasal Screen MRSA (PCR) Mrsa detected Serum Alcohol Blood Type Antibody Screen Ab Screen Tube Method Crossmatch [employer] Gel Crossmatch Blood Bank Comment 10/04/17 10/04/17 10/04/17 01:18 03:20 03:20 WBC 16.1 H RBC 3.13 L Hgb 8.8 L D POC Hgb (Calc) Hct 26.1 L POC Hct MCV 83.4 D MCH 28.3 MCHC 33.9 RDW 22.6 H D Plt Count 53 L D MPV 8.2 Prelim Diff (Auto) Slide review pending Neut % (Auto) 81.4 H Lymph % (Auto) 7.8 L [place] % (Auto) 10.0 H Eos % (Auto) 0.2 Baso % (Auto) 0.6 Neut # (Auto) 13.1 H Lymph # (Auto) 1.3 [place] # (Auto) 1.6 H Eos # (Auto) 0.0 Baso # (Auto) 0.1 WBC Differential . Diff Scan Auto diff confirmed Differential Comment . Platelet Estimate Low L Platelet Morphology Normal PT 17.0 H D INR 1.7 APTT 35.7 H D Fibrinogen POC Sodium Sodium POC Potassium Potassium POC Chloride Chloride Carbon Dioxide Anion Gap POC BUN BUN Creatinine POC Creatinine Estimated GFR POC Glucose 123 H Random Glucose Lactic Acid Calcium Prot Corrected Calcium Phosphorus Magnesium Total Bilirubin AST ALT Alkaline Phosphatase Ammonia Total Creatine Kinase CK-MB (CK-2) CK-MB (CK-2) % Troponin I Total Protein Albumin Prealbumin Lipase TSH Nasal Screen MRSA (PCR) Serum Alcohol Blood Type Antibody Screen Ab Screen Tube Method Crossmatch [employer] Gel Crossmatch Blood Bank Comment 10/04/17 10/04/17 10/04/17 03:20 03:20 03:20 WBC RBC Hgb POC Hgb (Calc) Hct POC Hct MCV MCH MCHC RDW Plt Count MPV Prelim Diff (Auto) Neut % (Auto) Lymph % (Auto) [place] % (Auto) Eos % (Auto) Baso % (Auto) Neut # (Auto) Lymph # (Auto) [place] # (Auto) Eos # (Auto) Baso # (Auto) WBC Differential Diff Scan Differential Comment Platelet Estimate Platelet Morphology PT INR APTT Fibrinogen 150 L POC Sodium Sodium 153 H POC Potassium Potassium 4.4 POC Chloride Chloride 121 H Carbon Dioxide 17.1 L Anion Gap 15 POC BUN BUN 37 H Creatinine 0.97 POC Creatinine Estimated GFR 60 L POC Glucose Random Glucose 132 H Lactic Acid 9.8 H* Calcium 6.7 L* Prot Corrected Calcium 8.4 L Phosphorus 4.8 Magnesium Total Bilirubin 6.5 H AST 57 H ALT 22 Alkaline Phosphatase 128 H Ammonia Total Creatine Kinase CK-MB (CK-2) CK-MB (CK-2) % Troponin I Total Protein 4.0 L Albumin 2.2 L D Prealbumin 9 L Lipase TSH Nasal Screen MRSA (PCR) Serum Alcohol Blood Type Antibody Screen Ab Screen Tube Method Crossmatch [email or web address] Blood Bank Comment 10/04/17 10/04/17 10/04/17 06:30 06:30 07:45 WBC RBC Hgb POC Hgb (Calc) Hct POC Hct MCV MCH MCHC RDW Plt Count MPV Prelim Diff (Auto) Neut % (Auto) Lymph % (Auto) [place] % (Auto) Eos % (Auto) Baso % (Auto) Neut # (Auto) Lymph # (Auto) [place] # (Auto) Eos # (Auto) Baso # (Auto) WBC Differential Diff Scan Differential Comment Platelet Estimate Platelet Morphology PT INR APTT Fibrinogen POC Sodium Sodium POC Potassium Potassium POC Chloride Chloride Carbon Dioxide Anion Gap POC BUN BUN Creatinine POC Creatinine Estimated GFR POC Glucose Random Glucose Lactic Acid Calcium Prot Corrected Calcium Phosphorus Magnesium 1.4 L Total Bilirubin AST ALT Alkaline Phosphatase Ammonia 83 H Total Creatine Kinase 340 H CK-MB (CK-2) 10.3 H CK-MB (CK-2) % 3.0 Troponin I 0.30 H Total Protein Albumin Prealbumin Lipase TSH 0.535 Nasal Screen MRSA (PCR) Serum Alcohol Blood Type Antibody Screen Ab Screen Tube Method Crossmatch [email or web address] Blood Bank Comment - Imaging Impressions Chest X-Ray 10/03/17 00:00 CONCLUSION: 1. Right internal jugular central venous line with no pneumothorax. 2. The heart size is at the upper limits of normal. 3. Mild hazy opacity at the left lung base. <Aquiles Joyner - Last Filed: 10/04/17 09:11> Assessment and Plan - Plan Assessment: - UGI bleeding in setting of cirrhosis Pt reports melena and hematemesis since 3 am yesterday. She is currently admitted to ICU and continues to have alfred blood from her NG tube and per RN had multiple episodes of melena overnight. Pt denies any abdominal pain. Pt is a poor historian and can not recall if she has had GIB in the past. Unsure when her last EGD was. States colonoscopy was 3 months ago. She is currently on vacation, GI doctor is Dr. Randle in [place], [place], pt reports last seeing him 3 months ago - Cirrhosis- pt reports secondary to ETOH abuse, denies any alcohol in 8 months. Not on liver transplant list, states not sick enough. PT also reports history of hepatitis but in unsure which kind and does not recall being treated for this. Denies tattoos, history of IV drug use or any illicit drugs, and unprotected sex. Thrombocytopenia (plts-53) hypoalbuminemia (albumin 2.2) coagulopathy (INR- 3.8 before correction) - Elevated LFTs- elevated DF and labs elevated in a manner consistent with ETOH however pt denies AST-57 ALT-22 Alk phos-128 T bili-6.5 - Hyperammonemia- ammonia-83- Pt on Xifaxan and Lactulose - History of pancreatitis- pt reports recurrent episodes of this Plan: EGD with banding today Consent has already been obtained Keep NPO NG to LIWS 2 U FFP to be transfused NOW- discussed with RN H/H recheck STAT and then serial monitoring Octreotide gtt Protonix gtt Hepatitis profile Xifaxan Lactulose Further recommendations based on course Pt has been seen and examined by myself and Dr. Joyner and this note is written on his behalf <Margaret Santos - Last Filed: 10/04/17 07:52> - Plan patient was seen and examined, agree with above note, could be PUD from NSAIDs or Varices from cirrhosis, we will give FFP and PRBC as needed. <Aquiles Joyner - Last Filed: 10/04/17 09:11>
--- NOTE | 2017-10-04 09:24 | P.PCN ---
Procedure: THANK YOU FOR THE REFERRAL Indication; vomiting blood Procedure Performed; upper endoscopy with bleeding controlled with ablation of an ulcer and injection with epinephrine After informing the patient about procedure and possible complications consent was signed. history and physical were updated. Patient was taken to the procedure room and placed in position. Time out was completed. Adequate sedation was performed by anesthesia provider. Upper Endoscopy, the scope was placed in the mouth advanced under video guide to the second portion of the duodenum, then the scope was withdrawal to the stomach and retro-flexion was performed, the scope was withdrawal to the esophagus then out of the mouth without any immediate complication Findings; Esophagus: Normal, no varices Stomach significant amount of blood throughout the stomach, large deep ulcer in the antrum with adherent clot, this is the source of bleeding, injection of the ulcer was done blindly under the clot with 9 cc of epinephrine, then the clot was irrigated and removed and cautery of the ulcer with visible vessels that were obvious, no active bleeding at the end of the case Duodenum normal Recommendations; 1- Supportive care 2- ok to transfer to recovery area then discharge per protocol 3-monitor H&H with packed RBC and FFP's if needed 4-n.p.o. 5- EGD in 2 months 6-no NSAIDs 7-Protonix 40 mg daily 8-no alcohol
[2017-10-04] MEDS ORDERED: Propofol Inj 500 MG/50 ML Vial ONE (09:41)
[2017-10-04 10:26] LABS: Hepatitis A IgM Antibody Nonreactive (Nonreactive); Hepatitits B Surface Antigen Nonreactive (Nonreactive)
[2017-10-04] MEDS: Sod Chloride 0.9% Inj 1,000 ML IV.CONT SCH ×2 (11:20→23:12)
[2017-10-04] MEDS: Senna/Docusate Sodium 8.6/50 MG Tablet PO SCH ×2 (11:21→20:12)
--- NOTE | 2017-10-04 11:54 | US ---
EXAM DATE: 10/04/2017 11:44 AM EDT AGE/SEX: 52 years / Female INDICATIONS: Abdominal pain. CLINICAL DATA: This is the patient's initial encounter. Patient reports that signs and symptoms have been present for 2 days and indicates a pain score of Nonresponsive. MEDICAL/SURGICAL HISTORY: Anemia. Cirrhosis. Gastrointestinal bleed. Colitis. . Shoulder coelho rgery. Blood transfusions. COMPARISON: No prior exams available for comparison. MEASUREMENTS: Liver:__ 14.2 cm. Common Bile Duct:__ 3mm. Right Kidney:__ 11.1 x 4.1 x 4.8 cm. FINDINGS: Liver: Cirrhotic appearing liver without significant focal mass. There is a small amount of ascites. Portal Vein: Hepatofugal flow seen in portal vein. Common Duct: No intraluminal mass or stone visualized. Gallbladder: Gallbladder wall thickening with 9 mm gallstone in the gallbladder neck. Gallbladder is otherwise decompressed. No significant sonographic Bobo sign. Pancreas: Not well visualized. Right Kidney: Normal echotexture and cortical thickness. No mass or hydronephrosis. Other: Mild bilateral pleural effusions. CONCLUSION: 1. Cirrhotic liver with small amount of ascites and reversal of flow in the portal vein. 2. Gallbladder wall thickening with cholelithiasis. These findings are commonly seen in the setting of cirrhosis and limit sonographic sensitivity for early acute cholecystitis. 3. Small bilateral pleural effusions. Electronically signed by: Alfredo Lockwood MD 10/04/2017 11:52 AM EDT
[2017-10-04] MEDS ORDERED: Lidocaine PF 1% Inj 5 ML Syringe INFILTRATN ONE (12:00)
[2017-10-04] MEDS ORDERED: Succinylcholine Inj 100 MG/5 ML Syringe IV.PUSH ONE (12:00)
[2017-10-04] MEDS ORDERED: Phenylephrine/NS 1000 MCG/10ML Syringe IV.PUSH ONE (12:00)
--- NOTE | 2017-10-04 12:47 | XR ---
EXAM DATE: 10/04/2017 12:42 PM EDT AGE/SEX: 52 years / Female INDICATIONS: Post ET tube placement CLINICAL DATA: This is the patient's subsequent encounter. Patient reports that signs and symptoms h ave been present for 1 day and indicates a pain score of Nonresponsive. MEDICAL/SURGICAL HISTORY: Cirrhosis. Gastrointestinal bleed. colitis . shoulder replaced COMPARISON: [facility], CHEST 1V SINGLE AP, 10/03/2017. . FINDINGS: Endotracheal tube is in good position. NG enters the stomach. Bilateral mostly basilar airspace disea se with pleural effusions. Cardiomegaly. No pneumothorax. Previous left shoulder joint replacement. CONCLUSION: Support apparatus in good position. Bilateral mostly basilar airspace disease and effusions have increased since October 03 examination. Electronically signed by: Azeem Hinojosa MD 10/04/2017 12:46 PM EDT
[2017-10-04 13:22] LABS: Hematocrit 15.1 % (35.0-46.0); Hemoglobin 5.3 gm/dL (11.6-15.3)
--- NOTE | 2017-10-04 13:50 | P.PNCC ---
Subjective Subjective Remarks/Hospital Course: 10/03: This is a 52-year-old female. Date of admission 10/03/2017. Past medical history includes hepatitis, colitis, acute blood loss anemia and prior GI bleed. According to mother at bedside, patient has been having coffee- ground emesis and bleeding from her rectum since 3:00 this morning. She states she paid housekeeping $20 to clean up the amount of blood. Patient complains of abdominal pain that is dull, constant. Symptom onset was sudden, symptoms are moderate in nature. EMS stated the patient's blood pressure was in the 80s systolic when they arrived on scene. Patient received a liter of IV fluids in route to the hospital. Received an additional 3 L normal saline in ED. Hemoglobin was noted to be 4.7. Platelets are low at 94. Currently receiving 40 PRBCs and 2 FFP stat. Patient is placed on a pantoprazole drip 8 mg an hour after receiving 80 mg IV bolus and an octreotide drip at 50 mcg/h. Denied chest pain or shortness of breath. Currently hemodynamics stabilize. Patient is also to have an elevated ammonia level and elevated lipase with a low albumin and magnesium. 10/04: Evaluated this morning prior to EGD. Awake and alert. Titrate blood noted being suctioned out of NG tube. Received 4 units PRBCs, FFP and cryoprecipitate overnight. Objective Vital Signs / I&O: Vital Signs 10/03/17 17:38 10/03/17 17:52 10/03/17 18:01 Temperature 98 F 98 F Pulse Rate 90 99 H Respiratory Rate 18 15 Blood Pressure 97/53 L 97/53 L Pulse Oximetry 98 99 98 10/03/17 18:35 10/03/17 19:00 10/03/17 20:07 Temperature Pulse Rate 94 H Respiratory Rate 14 Blood Pressure 101/54 L Pulse Oximetry 97 97 100 10/03/17 20:34 10/03/17 21:00 10/03/17 21:44 Temperature 97.6 F 97.6 F Pulse Rate 100 H 105 H 106 H Respiratory Rate 17 20 17 Blood Pressure 94/66 L 88/51 L 76/42 L Pulse Oximetry 100 100 100 10/03/17 22:00 10/03/17 22:22 10/03/17 22:41 Temperature 97.8 F 97.8 F Pulse Rate 107 H 105 H 100 H Respiratory Rate 20 20 20 Blood Pressure 82/48 L 89/54 L 90/53 L Pulse Oximetry 100 100 100 10/03/17 23:00 10/03/17 23:19 10/04/17 00:00 Temperature 97.9 F Pulse Rate 106 H 126 H 124 H Respiratory Rate 20 20 20 Blood Pressure 93/55 L 89/55 L 127/66 Pulse Oximetry 100 100 100 10/04/17 00:13 10/04/17 00:44 10/04/17 01:00 Temperature 97.9 F 98.1 F Pulse Rate 124 H 124 H 116 H Respiratory Rate 20 22 20 Blood Pressure 127/66 152/67 H 141/64 H Pulse Oximetry 100 100 100 10/04/17 01:20 10/04/17 02:00 10/04/17 03:00 Temperature Pulse Rate 123 H 109 H 113 H Respiratory Rate 20 20 20 Blood Pressure 151/72 H 172/82 H 170/87 H Pulse Oximetry 95 100 100 10/04/17 04:00 10/04/17 05:00 10/04/17 06:00 Temperature Pulse Rate 113 H 109 H 112 H Respiratory Rate 20 20 20 Blood Pressure 147/77 H 140/67 128/59 L Pulse Oximetry 100 100 100 10/04/17 08:14 10/04/17 08:21 10/04/17 09:35 Temperature 98.2 F Pulse Rate 114 H Respiratory Rate 30 H 16 Blood Pressure 123/60 Pulse Oximetry 95 93 L 95 10/04/17 09:55 10/04/17 11:35 Temperature 97 F L Pulse Rate Respiratory Rate 16 17 Blood Pressure 126/58 L Pulse Oximetry 96 Intake & Output 10/03/17 10/04/17 10/04/17 18:59 06:59 18:59 Intake Total 6734.7 / 6734.7 1614 / 1614 Output Total 600 / 600 Balance 6134.7 / 6134.7 1614 / 1614 Weight 65 kg 67.8 kg Intake: IV 4297.7 / 4297.7 1350 / 1350 SandoSTATIN Inj 500 MCG In NS 500.5 / 500.5 Inj 500 ML @ 50 MCG/HR 50.05 mls/hr IV.CONT .Q10H [facility] Rx#: [id number] Protonix Inj 80 MG In NS Inj 100 / 100 100 ML @ 10 mls/hr IV.CONT CONT [facility] Rx#:[id number] NS Inj 1,000 ML @ 84 mls/hr IV. 1000 / 1000 CONT .[id number] [facility] Rx#:[id number] Flexbumin 25% Inj 100 ML @ 60 100 / 100 100 / 100 mls/hr IV.SIG Q6H [facility] Rx#: [id number] MVI-12 Inj 10 ML Thiamine Inj 511.2 / 511.2 100 MG Folvite Inj 1 MG In NS Inj 500 ML @ 125 mls/hr IV.SIG Q24H [facility] Rx#:[id number] Protonix Inj 80 MG In NS Inj 35 35 / 35 ML @ 420 mls/hr IV.SIG BOLUS ONE Rx#:[id number] Vitamin K Inj 10 MG In NS Inj 51 / 51 50 ML @ 102 mls/hr IV.SIG ONCE ONE Rx#:[id number] NS Inj 1,000 ML @ Wide Open IV. 3000 / 3000 SIG BOLUS ONE Rx#:[id number] NS Inj 250 ML @ 15 mls/hr IV. 250 / 250 SIG ONCE [facility] Rx#:[id number] Oral 0 / 0 Intake (Blood Product) Amt 2437 / 2437 264 / 264 Plasma Thawed 5 Day Cp2d Unit 308 / 308 [id number] Plasma Thawed 5 Day Cp2d Unit 317 / 317 [id number] Plasma Thawed 5d Cp2d Pool 264 / 264 Unit [id number] Plasma Thawed 5d Cp2d Pool 0 / 0 Unit [id number] Pre-Pooled Cryo Thawed 10units 212 / 212 Unit [id number] Rbc As-3 Leukoreduced Unit 400 / 400 [id number] Rbc As-3 Leukoreduced Unit 400 / 400 [id number] Rbc As-3 Leukoreduced Unit 400 / 400 [id number] Rbc As-3 Leukoreduced Unit 400 / 400 [id number] Output: Urine 0 / 0 Emesis 400 / 400 Gastric Drainage 200 / 200 Right Nare Nasogastric Tube 200 / 200 Other: Date of Last Bowel Movement 10/04/17 # Incontinent Bowel Movements 1 # Emeses 3 Weight On Admission 64.7 kg Result Diagrams: 10/04/17 12:22 10/04/17 03:20 Imaging: Chest X-Ray 10/03/17 00:00 CONCLUSION: 1. Right internal jugular central venous line with no pneumothorax. 2. The heart size is at the upper limits of normal. 3. Mild hazy opacity at the left lung base. Liver Ultrasound 10/04/17 00:00 CONCLUSION: 1. Cirrhotic liver with small amount of ascites and reversal of flow in the portal vein. 2. Gallbladder wall thickening with cholelithiasis. These findings are commonly seen in the setting of cirrhosis and limit sonographic sensitivity for early acute cholecystitis. 3. Small bilateral pleural effusions. Chest X-Ray 10/04/17 12:00 CONCLUSION: Support apparatus in good position. Bilateral mostly basilar airspace disease and effusions have increased since October 03 examination. Objective Remarks: HEENT/Neuro: Pallor present tongue moist, ASHTYN, Awake alert oriented 3, nonfocal grossly, moving all 4 extremities Neck: No JVD Chest/pulmonary: Air entry decreased bilaterally at bases, scattered rhonchi bilaterally, no wheezing or crackles. Cardiovascular: S1-S2 regular no gallop or murmur GI/abdomen: Soft, nontender, bowel sounds present Extremities: Warm bilaterally, no edema Assessment and Plan - Assessment and Plan Plan: Neuro/Psych: Acute encephalopathy secondary elevated ammonia Patient is currently arousable and does follow commands. SEE GI for ammoniated workup Vitamin bag daily 3 dosages Monitor for disease CV: Hypotension secondary to acute GI bleed Status post 3 L crystalloid resuscitation. Currently normal saline at 84 cc an hour Lactic was 1.9 CPK and troponin ordered. Currently receiving 4 PRBCs and 2 FFP. As needed phenylephrine drip ordered Resp: Ongoing tobaccoism Cessation will be encouraged with self education/evaluation booklet provided when able Nasal cannula to maintain saturations greater than equal to 92% Incentive spirometry while awake Albuterol/ipratropium aerosols every 4 hours with albuterol aerosols every 2 hours as needed for dyspnea Patient intubated for EGD. GI wishes to keep patient intubated overnight as high risk for rebleeding GI: History of cirrhosis History of colitis Hypoalbuminemia Hyper ammonia Elevated lipase Elevated total bilirubin Currently on pantoprazole drip at 8 mg an hour after receiving 80 mg bolus and octreotide drip at 50 mcg/h. GI consultation. EGD done earlier today revealed large gastric ulcer in the antrum. Epinephrine injected at the base of ulcer with visible vessel. High risk for rebleeding per GI. GI wishes to keep patient intubated following EGD at this time. : Straight cath as needed. Endo: Sliding scale insulin with Accu-Cheks to maintain euglycemia Renal: Creatinine currently within normal limits Monitor urine output accurate I's and O's Heme: Leukocytosis macrocytic anemia/acute blood loss Thrombocytopenia s/p 4 PRBCs/2 FFP order along with 10 mg vitamin K IV 1 on 10/03. Follow serial CBC and coags ID: Start on ceftriaxone with upper GI bleed MSK: PT evaluate and treat FEN: Hypomagnesia Replace electrolytes per ICU electrolyte protocol Access -Utilize peripheral IV. Central line if indicated Prophylaxis -GI -pantoprazole drip - -DVT SCD/holding pharmacological prophylaxis light of acute hemorrhage 35 minutes critical care time
[2017-10-04] MEDS: Propofol 1000 mg/100 ml Inj 1,000 MG/100 ML BOTTLE IV.CONT PRN ×2 (14:02→18:50)
[2017-10-04 17:55] LABS: Hematocrit 23.7 % (35.0-46.0); Hemoglobin 8.5 gm/dL (11.6-15.3)
[2017-10-04] MEDS: Chlorhexidine 0.12% Oral Kit 15 ML UDC OROPHARYNG SCH (20:20)
[2017-10-04] MEDS: Multivitamin Inj 10 ML, Thiamine Inj 100 MG, Folic Acid Inj 1 MG in Sodium Chlor 0.9% I... IV.SIG SCH (20:21)
[2017-10-04 23:59] LABS: Hemoglobin 8.2 gm/dL (11.6-15.3)
[2017-10-05] MEDS: Propofol 1000 mg/100 ml Inj 1,000 MG/100 ML BOTTLE IV.CONT PRN ×3 (00:04→07:50)
[2017-10-05] MEDS: Oral Hygiene Kit OROPHARYNG SCH ×4 (00:15→16:38)
[2017-10-05] MEDS: Insulin NovoLOG Aspart Correctional Sugar Inj SQ SCH ×4 (00:15→18:18)
[2017-10-05] MEDS ORDERED: fentaNYL Citrate Inj 100 MCG/2 ML Ampul ONE (03:29)
[2017-10-05] MEDS: Octreotide Inj 500 MCG in Sodium Chlor 0.9% Inj 500 ML IV.CONT SCH ×3 (03:33→23:33)
[2017-10-05] MEDS ORDERED: fentaNYL Citrate Inj 100 MCG/2 ML Ampul IV.PUSH PRN (03:34)
[2017-10-05] MEDS: Pantoprazole Inj 80 MG in Sodium Chlor 0.9% Inj 100 ML IV.CONT SCH ×3 (03:37→23:34)
[2017-10-05 05:11] LABS: Hematocrit 23.7 % (35.0-46.0); Hemoglobin 8.8 gm/dL (11.6-15.3)
[2017-10-05 05:45] LABS: INR 1.6 Ratio; Prothrombin Time 15.9 sec (9.8-11.6)
[2017-10-05] MEDS: Chlorhexidine Gluconate 2% 1 Pack (2 Cloths) TOPICAL SCH (05:48)
[2017-10-05] MEDS: Chlorhexidine 0.12% Oral Kit 15 ML UDC OROPHARYNG SCH ×2 (07:51→20:41)
[2017-10-05] MEDS: Sod Chloride 0.9% Inj 1,000 ML IV.CONT SCH (07:51)
--- NOTE | 2017-10-05 08:15 | P.PNGI ---
Subjective Interval history: Pt sedated with Propofol and remains orally intubated. Discussed with ARNAV Hernandez states he received in report pt had black stools with BRB overnight, pt during my exam had black stools with BRB mixed in on bed. NG tube secretions seemed to be clearing up some. Physical Exam Vital signs: Vital Signs 10/04/17 08:14 10/04/17 08:21 10/04/17 09:33 Temperature 98.2 F Pulse Rate 114 H 127 H Respiratory Rate 30 H Blood Pressure 123/60 Pulse Oximetry 95 93 L 10/04/17 09:35 10/04/17 09:45 10/04/17 09:55 Temperature 97 F L Pulse Rate 128 H 126 H Respiratory Rate 16 16 16 Blood Pressure 118/58 L 126/58 L 126/58 L Pulse Oximetry 95 97 10/04/17 10:00 10/04/17 10:15 10/04/17 10:30 Temperature Pulse Rate 123 H 121 H 123 H Respiratory Rate 16 16 16 Blood Pressure 123/58 L 132/64 141/67 H Pulse Oximetry 99 99 99 10/04/17 10:45 10/04/17 11:00 10/04/17 11:15 Temperature Pulse Rate 125 H 128 H 122 H Respiratory Rate 16 17 16 Blood Pressure 138/66 132/62 118/55 L Pulse Oximetry 97 96 96 10/04/17 11:30 10/04/17 11:35 10/04/17 11:45 Temperature Pulse Rate 119 H 119 H Respiratory Rate 18 17 18 Blood Pressure 121/57 L 131/62 Pulse Oximetry 96 96 97 10/04/17 12:00 10/04/17 12:15 10/04/17 12:30 Temperature Pulse Rate 120 H 118 H 119 H Respiratory Rate 18 19 25 H Blood Pressure 130/63 125/62 118/59 L Pulse Oximetry 97 97 98 10/04/17 12:45 10/04/17 13:00 10/04/17 13:15 Temperature Pulse Rate 113 H 112 H 104 H Respiratory Rate 18 22 20 Blood Pressure 118/58 L 120/58 L 118/57 L Pulse Oximetry 98 99 99 10/04/17 13:30 10/04/17 13:45 10/04/17 14:00 Temperature Pulse Rate 108 H 104 H 109 H Respiratory Rate 27 H 22 24 Blood Pressure 120/58 L 122/56 L 111/57 L Pulse Oximetry 99 99 98 10/04/17 14:15 10/04/17 14:20 10/04/17 14:30 Temperature 98.2 F Pulse Rate 102 H 105 H 100 H Respiratory Rate 19 18 19 Blood Pressure 103/52 L 103/52 L 100/54 L Pulse Oximetry 98 99 10/04/17 14:45 10/04/17 15:00 10/04/17 15:15 Temperature Pulse Rate 98 H 99 H 100 H Respiratory Rate 18 19 19 Blood Pressure 102/58 L 107/56 L 109/57 L Pulse Oximetry 100 98 99 10/04/17 15:47 10/04/17 16:00 10/04/17 16:36 Temperature 99 F 99 F Pulse Rate 103 H 104 H 106 H Respiratory Rate 21 21 24 Blood Pressure 116/62 111/59 L Pulse Oximetry 97 97 96 10/04/17 18:00 10/04/17 20:00 10/04/17 20:02 Temperature 100.2 F H Pulse Rate 118 H 106 H 107 H Respiratory Rate 16 21 Blood Pressure 121/78 Pulse Oximetry 98 94 L 10/04/17 22:00 10/04/17 23:27 10/04/17 23:28 Temperature Pulse Rate 112 H 100 H Respiratory Rate 19 19 Blood Pressure Pulse Oximetry 94 L 10/05/17 00:00 10/05/17 02:00 10/05/17 03:16 Temperature 99.0 F Pulse Rate 101 H 109 H 115 H Respiratory Rate 21 30 H Blood Pressure 106/65 Pulse Oximetry 94 L 10/05/17 04:00 10/05/17 04:08 10/05/17 05:48 Temperature 99.1 F Pulse Rate 126 H Respiratory Rate 21 26 H 21 Blood Pressure 121/63 Pulse Oximetry 97 91 L 10/05/17 06:00 Temperature Pulse Rate 126 H Respiratory Rate Blood Pressure Pulse Oximetry Intake & Output 10/04/17 10/05/17 10/05/17 18:59 06:59 18:59 Intake Total 3986.5 / 3986.5 2661.7 / 2661.7 1100 / 1100 Output Total 400 / 400 0 / 0 Balance 3586.5 / 3586.5 2661.7 / 2661.7 1100 / 1100 Weight 74 kg Intake: IV 2049.5 / 0.5 2661.7 / 2661.7 1100 / 1100 SandoSTATIN Inj 500 MCG In NS 500.5 / 500.5 500.5 / 500.5 Inj 500 ML @ 50 MCG/HR 50.05 mls/hr IV.CONT .Q10H NIELS Rx#: [id number] Protonix Inj 80 MG In NS Inj 100 / 100 100 / 100 100 ML @ 10 mls/hr IV.CONT CONT NIELS Rx#:[id number] Diprivan 1000 mg/100 ml Inj 1, 100 / 100 200 / 200 100 / 100 000 mg In 100 ml @ 5 MCG/KG/MIN 2.034 mls/hr IV.CONT TITRATE PRN Rx#:[id number] NS Inj 1,000 ML @ 84 mls/hr IV. 1000 / 1000 1000 / 1000 1000 / 1000 CONT .[id number] NIELS Rx#:[id number] Flexbumin 25% Inj 100 ML @ 60 100 / 100 mls/hr IV.SIG Q6H NIELS Rx#: [id number] MVI-12 Inj 10 ML Thiamine Inj 511.2 / 511.2 100 MG Folvite Inj 1 MG In NS Inj 500 ML @ 125 mls/hr IV.SIG Q24H NIELS Rx#:[id number] NS Inj 250 ML @ 15 mls/hr IV. 250 / 250 250 / 250 SIG ONCE NIELS Rx#:[id number] Rocephin Inj 1,000 MG In NS Inj 100 / 100 100 ML @ 200 mls/hr IV.SIG Q24H NIELS Rx#:[id number] Oral 0 / 0 0 / 0 Other 1060 / 1060 Plasma Thawed 5d Cp2d Pool 60 / 60 Unit [id number] Intake (Blood Product) Amt 876 / 876 Plasma Thawed 5d Cp2d Pool 264 / 264 Unit [id number] Plasma Thawed 5d Cp2d Pool 212 / 212 Unit [id number] Rbc As-3 Leukoreduced Unit 400 / 400 [id number] Rbc As-3 Leukoreduced Unit 0 / 0 [id number] Output: Urine 0 / 0 0 / 0 Gastric Drainage 400 / 400 Right Nare Nasogastric Tube 400 / 400 Other: Post Void Residual 100 Other Intake Source Saline Solution Plasma Thawed 5d Cp2d Pool Saline Solution Unit [id number] # Voids 1 # Incontinent Voids 1 Date of Last Bowel Movement 10/04/17 10/04/17 # Incontinent Bowel Movements 2 2 - Routine HEENT Exam Head: Present: normocephalic, atraumatic - Routine Respiratory Exam Present: patient mechanically ventilated - Routine Cardiovascular Exam Present: tachycardia - Routine Abdominal Exam Present: normoactive bowel sounds, distended, firm - Routine Skin Exam Present: dry, warm - Routine Neurological Exam sedated, unresponsive Results - Labs CBC & Chem 7: 10/05/17 04:47 10/04/17 03:20 Laboratory Results - last 24 hr 10/03/17 10/03/17 10/04/17 06:30 18:53 06:30 Hgb Hct PT INR APTT Fibrinogen POC Glucose Total Bilirubin 7.6 H Direct Bilirubin 2.5 H Indirect Bilirubin 5.1 H Hepatitis A IgM Ab Nonreactive Hep Bs Antigen Nonreactive Hep B Core IgM Ab Nonreactive Hep C IgG Ab Nonreactive Crossmatch See Detail MTS Gel Crossmatch See Detail Blood Bank Comment 10/04/17 10/04/17 10/04/17 07:45 12:20 12:22 Hgb 5.3 L* D Hct 15.1 L* PT INR APTT Fibrinogen POC Glucose 144 H Total Bilirubin Direct Bilirubin Indirect Bilirubin Hepatitis A IgM Ab Hep Bs Antigen Hep B Core IgM Ab Hep C IgG Ab Crossmatch MTS Gel Crossmatch Blood Bank Comment 10/04/17 10/04/17 10/04/17 17:04 17:42 23:25 Hgb 8.5 L D 8.2 L Hct 23.7 L 23.0 L PT INR APTT Fibrinogen POC Glucose 123 H Total Bilirubin Direct Bilirubin Indirect Bilirubin Hepatitis A IgM Ab Hep Bs Antigen Hep B Core IgM Ab Hep C IgG Ab Crossmatch MTS Gel Crossmatch Blood Bank Comment 10/04/17 10/05/17 10/05/17 23:48 04:47 04:47 Hgb 8.8 L Hct 23.7 L PT 15.9 H INR 1.6 APTT 32.0 H Fibrinogen 151 L POC Glucose 106 Total Bilirubin Direct Bilirubin Indirect Bilirubin Hepatitis A IgM Ab Hep Bs Antigen Hep B Core IgM Ab Hep C IgG Ab Crossmatch MTS Gel Crossmatch Blood Bank Comment 10/05/17 06:13 Hgb Hct PT INR APTT Fibrinogen POC Glucose 110 Total Bilirubin Direct Bilirubin Indirect Bilirubin Hepatitis A IgM Ab Hep Bs Antigen Hep B Core IgM Ab Hep C IgG Ab Crossmatch MTS Gel Crossmatch Blood Bank Comment - Imaging Impressions Liver Ultrasound 10/04/17 00:00 CONCLUSION: 1. Cirrhotic liver with small amount of ascites and reversal of flow in the portal vein. 2. Gallbladder wall thickening with cholelithiasis. These findings are commonly seen in the setting of cirrhosis and limit sonographic sensitivity for early acute cholecystitis. 3. Small bilateral pleural effusions. Chest X-Ray 10/04/17 12:00 CONCLUSION: Support apparatus in good position. Bilateral mostly basilar airspace disease and effusions have increased since October 03 examination. Assessment and Plan - Plan Assessment: - UGI bleeding in setting of cirrhosis Pt reports melena and hematemesis since 3 am yesterday. She is currently admitted to ICU and continues to have alfred blood from her NG tube and per RN had multiple episodes of melena overnight. Pt denies any abdominal pain. Pt is a poor historian and can not recall if she has had GIB in the past. Unsure when her last EGD was. States colonoscopy was 3 months ago. She is currently on vacation, GI doctor is Dr. Randle in [place], [place], pt reports last seeing him 3 months ago EGD (10/04) Esophagus: Normal, no varices. Stomach: significant amount of blood throughout the stomach, large deep ulcer in the antrum with adherent clot, this is the source of bleeding, injection of the ulcer was done blindly under the clot with 9 cc of epinephrine, then the clot was irrigated and removed and cautery of the ulcer with visible vessels that were obvious, no active bleeding at the end of the case. Duodenum: normal - Cirrhosis- pt reports secondary to ETOH abuse, denies any alcohol in 8 months. Not on liver transplant list, states not sick enough. PT also reports history of hepatitis but in unsure which kind and does not recall being treated for this. Denies tattoos, history of IV drug use or any illicit drugs, and unprotected sex. Thrombocytopenia (plts-53) hypoalbuminemia (albumin 2.2) coagulopathy (INR- 3.8 before correction) US liver (10/04) Cirrhotic liver with small amount of ascites and reversal of flow in the portal vein. Gallbladder wall thickening with cholelithiasis. These findings are commonly seen in the setting of cirrhosis and limit sonographic sensitivity for early acute cholecystitis. Small bilateral pleural effusions. Hepatitis panel negative. - Elevated LFTs- elevated DF and labs elevated in a manner consistent with ETOH however pt denies AST-57 ALT-22 Alk phos-128 T bili-6.5 - Hyperammonemia- ammonia-83- Pt on Xifaxan and Lactulose - History of pancreatitis- pt reports recurrent episodes of this (10/05) Pt S/P EGD yesterday as noted above, left intubated after the procedure. Pt now on 65% FiO2, she is on Propofol for sedation. She received an additional 2 U of PRBCs after EGD yesterday and hgb has been stable since transfusion, has had 5 U PRBCs total. Nurse reports pt had multiple black stools with BRB mixed in overnight. Further recommendations based on hgb trends and clinical course Plan: Keep intubated for now NG to LIWS Serial H/H Octreotide gtt Protonix gtt Xifaxan Lactulose Further recommendations based on course Pt has been seen and examined by myself and Dr. Joyner and this note is written on his behalf
[2017-10-05] MEDS: Senna/Docusate Sodium 8.6/50 MG Tablet PO SCH ×2 (08:18→20:41)
[2017-10-05] MEDS: rifAXIMin 550 MG Tablet PO SCH ×2 (08:18→20:43)
[2017-10-05] MEDS ORDERED: Sod Chloride 0.9% Inj 1,000 ML IV.SIG ONE (09:35)
--- NOTE | 2017-10-05 10:18 | P.PNCC ---
Subjective Subjective Remarks/Hospital Course: 10/03: This is a 52-year-old female. Date of admission 10/03/2017. Past medical history includes hepatitis, colitis, acute blood loss anemia and prior GI bleed. According to mother at bedside, patient has been having coffee- ground emesis and bleeding from her rectum since 3:00 this morning. She states she paid housekeeping $20 to clean up the amount of blood. Patient complains of abdominal pain that is dull, constant. Symptom onset was sudden, symptoms are moderate in nature. EMS stated the patient's blood pressure was in the 80s systolic when they arrived on scene. Patient received a liter of IV fluids in route to the hospital. Received an additional 3 L normal saline in ED. Hemoglobin was noted to be 4.7. Platelets are low at 94. Currently receiving 40 PRBCs and 2 FFP stat. Patient is placed on a pantoprazole drip 8 mg an hour after receiving 80 mg IV bolus and an octreotide drip at 50 mcg/h. Denied chest pain or shortness of breath. Currently hemodynamics stabilize. Patient is also to have an elevated ammonia level and elevated lipase with a low albumin and magnesium. 10/04: Evaluated this morning prior to EGD. Awake and alert. Titrate blood noted being suctioned out of NG tube. Received 4 units PRBCs, FFP and cryoprecipitate overnight. 10/05: Remains sedated, orally intubated on mechanical ventilation. Transfused 2 units PRBCs and 1 unit cryoprecipitate yesterday afternoon. Hemoglobin greater than 8 this morning. Had some bright red blood suctioned out of OG tube overnight about half a cupful per night worker RN. Objective Vital Signs / I&O: Vital Signs 10/04/17 10:15 10/04/17 10:30 10/04/17 10:45 Temperature Pulse Rate 121 H 123 H 125 H Respiratory Rate 16 16 16 Blood Pressure 132/64 141/67 H 138/66 Pulse Oximetry 99 99 97 10/04/17 11:00 10/04/17 11:15 10/04/17 11:30 Temperature Pulse Rate 128 H 122 H 119 H Respiratory Rate 17 16 18 Blood Pressure 132/62 118/55 L 121/57 L Pulse Oximetry 96 96 96 10/04/17 11:35 10/04/17 11:45 10/04/17 12:00 Temperature Pulse Rate 119 H 120 H Respiratory Rate 17 18 18 Blood Pressure 131/62 130/63 Pulse Oximetry 96 97 97 10/04/17 12:15 10/04/17 12:30 10/04/17 12:45 Temperature Pulse Rate 118 H 119 H 113 H Respiratory Rate 19 25 H 18 Blood Pressure 125/62 118/59 L 118/58 L Pulse Oximetry 97 98 98 10/04/17 13:00 10/04/17 13:15 10/04/17 13:30 Temperature Pulse Rate 112 H 104 H 108 H Respiratory Rate 22 20 27 H Blood Pressure 120/58 L 118/57 L 120/58 L Pulse Oximetry 99 99 99 10/04/17 13:45 10/04/17 14:00 10/04/17 14:15 Temperature Pulse Rate 104 H 109 H 102 H Respiratory Rate 22 24 19 Blood Pressure 122/56 L 111/57 L 103/52 L Pulse Oximetry 99 98 98 10/04/17 14:20 10/04/17 14:30 10/04/17 14:45 Temperature 98.2 F Pulse Rate 105 H 100 H 98 H Respiratory Rate 18 19 18 Blood Pressure 103/52 L 100/54 L 102/58 L Pulse Oximetry 99 100 10/04/17 15:00 10/04/17 15:15 10/04/17 15:47 Temperature 99 F Pulse Rate 99 H 100 H 103 H Respiratory Rate 19 19 21 Blood Pressure 107/56 L 109/57 L 116/62 Pulse Oximetry 98 99 97 10/04/17 16:00 10/04/17 16:36 10/04/17 18:00 Temperature 99 F Pulse Rate 104 H 106 H 118 H Respiratory Rate 21 24 Blood Pressure 111/59 L Pulse Oximetry 97 96 10/04/17 20:00 10/04/17 20:02 10/04/17 22:00 Temperature 100.2 F H Pulse Rate 106 H 107 H 112 H Respiratory Rate 16 21 Blood Pressure 121/78 Pulse Oximetry 98 94 L 10/04/17 23:27 10/04/17 23:28 10/05/17 00:00 Temperature 99.0 F Pulse Rate 100 H 101 H Respiratory Rate 19 19 21 Blood Pressure 106/65 Pulse Oximetry 94 L 94 L 10/05/17 02:00 10/05/17 03:16 10/05/17 04:00 Temperature 99.1 F Pulse Rate 109 H 115 H 126 H Respiratory Rate 30 H 21 Blood Pressure 121/63 Pulse Oximetry 97 10/05/17 04:08 10/05/17 05:48 10/05/17 06:00 Temperature Pulse Rate 126 H Respiratory Rate 26 H 21 Blood Pressure Pulse Oximetry 91 L 10/05/17 08:00 Temperature 99 F Pulse Rate 124 H Respiratory Rate 17 Blood Pressure 88/54 L Pulse Oximetry 92 L Intake & Output 10/04/17 10/05/17 10/05/17 18:59 06:59 18:59 Intake Total 3986.5 / 3986.5 2661.7 / 2661.7 1100 / 1100 Output Total 400 / 400 0 / 0 Balance 3586.5 / 3586.5 2661.7 / 2661.7 1100 / 1100 Weight 74 kg Intake: IV 2050.5 / 2050.5 2661.7 / 2661.7 1100 / 1100 SandoSTATIN Inj 500 MCG In NS 500.5 / 500.5 500.5 / 500.5 Inj 500 ML @ 50 MCG/HR 50.05 mls/hr IV.CONT .Q10H NIELS Rx#: [id number] Protonix Inj 80 MG In NS Inj 100 / 100 100 / 100 100 ML @ 10 mls/hr IV.CONT CONT NIELS Rx#:[id number] Diprivan 1000 mg/100 ml Inj 1, 100 / 100 200 / 200 100 / 100 000 mg In 100 ml @ 5 MCG/KG/MIN 2.034 mls/hr IV.CONT TITRATE PRN Rx#:[id number] NS Inj 1,000 ML @ 84 mls/hr IV. 1000 / 1000 1000 / 1000 1000 / 1000 CONT .[id number] NIELS Rx#:[id number] Flexbumin 25% Inj 100 ML @ 60 100 / 100 mls/hr IV.SIG Q6H NIELS Rx#: [id number] MVI-12 Inj 10 ML Thiamine Inj 511.2 / 511.2 100 MG Folvite Inj 1 MG In NS Inj 500 ML @ 125 mls/hr IV.SIG Q24H NIELS Rx#:[id number] NS Inj 250 ML @ 15 mls/hr IV. 250 / 250 250 / 250 SIG ONCE NIELS Rx#:[id number] Rocephin Inj 1,000 MG In NS Inj 100 / 100 100 ML @ 200 mls/hr IV.SIG Q24H NIELS Rx#:[id number] Oral 0 / 0 0 / 0 Other 1060 / 1060 Plasma Thawed 5d Cp2d Pool 60 / 60 Unit [id number] Intake (Blood Product) Amt 876 / 876 Plasma Thawed 5d Cp2d Pool 264 / 264 Unit [id number] Plasma Thawed 5d Cp2d Pool 212 / 212 Unit [id number] Rbc As-3 Leukoreduced Unit 400 / 400 [id number] Rbc As-3 Leukoreduced Unit 0 / 0 [id number] Output: Urine 0 / 0 0 / 0 Gastric Drainage 400 / 400 Right Nare Nasogastric Tube 400 / 400 Other: Post Void Residual 100 Other Intake Source Saline Solution Plasma Thawed 5d Cp2d Pool Saline Solution Unit [id number] # Voids 1 # Incontinent Voids 1 Date of Last Bowel Movement 10/04/17 10/04/17 10/04/17 # Incontinent Bowel Movements 2 2 Result Diagrams: 10/05/17 04:47 10/04/17 03:20 Objective Remarks: HEENT/ Neuro: Sedated, orally intubated, Pallor present, no icterus, tongue/ mucosa moist Neck: Right IJ Cordis in place Chest/Pulm: on mech vent, good air entry bilaterally, no wheezing or crackles CVS: S1-S2 regular, no murmur GI/abdomen: distended, nontender, bowel sounds sluggish Extremities: warm bilaterally, bilateral edema Assessment and Plan - Assessment and Plan Plan: Neuro/Psych: Acute encephalopathy secondary elevated ammonia Patient is currently arousable and does follow commands. SEE GI for ammoniated workup Vitamin bag daily 3 dosages Monitor for disease CV: Hypotension Status post 3 L crystalloid resuscitation. Currently normal saline at 84 cc an hour Lactic was 1.9 CPK and troponin ordered. 1 L normal saline bolus ordered for hypotension and restarting phenylephrine GTT Resp: Ongoing tobaccoism Cessation will be encouraged with self education/evaluation booklet provided when able Nasal cannula to maintain saturations greater than equal to 92% Incentive spirometry while awake Albuterol/ipratropium aerosols every 4 hours with albuterol aerosols every 2 hours as needed for dyspnea Patient intubated for EGD. GI wishes to keep patient intubated overnight as high risk for rebleeding GI: Gastric ulcer Upper GI bleed History of cirrhosis History of colitis Hypoalbuminemia Hyper ammonia Elevated lipase Elevated total bilirubin Currently on pantoprazole drip at 8 mg an hour after receiving 80 mg bolus and octreotide drip at 50 mcg/h. GI consultation. EGD done earlier today revealed large gastric ulcer in the antrum. Epinephrine injected at the base of ulcer with visible vessel. High risk for rebleeding per GI. GI wishes to keep patient intubated following EGD at this time. : Gold catheterization Endo: Sliding scale insulin with Accu-Cheks to maintain euglycemia Renal: Strict intake output, monitor and replete electrolytes, follow BUN/creatinine. On IV fluids. Edema noted maintain diuresis however hypotensive currently starting pressors. Heme: Leukocytosis macrocytic anemia/acute blood loss anemia Thrombocytopenia s/p 4 PRBCs/2 FFP order along with 10 mg vitamin K IV 1 on 10/03. 2 units PRBCs 1 unit cryoprecipitate transfused on 10/04. Follow serial CBC and coags ID: Start on ceftriaxone with upper GI bleed MSK: PT evaluate and treat FEN: Hypomagnesia Replace electrolytes per ICU electrolyte protocol Access -Right IJ cordis in place Prophylaxis -GI -pantoprazole drip - -DVT SCD/holding pharmacological prophylaxis light of acute hemorrhage 35 minutes critical care time
[2017-10-05] MEDS ORDERED: LORazepam 1 MG Tablet PO PRN (10:21)
[2017-10-05] MEDS ORDERED: Haloperidol Inj 5 MG/ML Ampul IV.PUSH PRN (10:21)
[2017-10-05 10:56] LABS: Amphetamine Screen,Urine Neg (Neg); Barbiturate Screen,Urine Neg (Neg); Cannabinoid Screen,Urine Neg (Neg); Cocaine Screen,Urine Neg (Neg)
[2017-10-05 10:57] LABS: Opiate Screen,Urine Neg (Neg)
--- NOTE | 2017-10-05 10:58 | XR ---
EXAM DATE: 10/05/2017 10:42 AM EDT AGE/SEX: 52 years / Female INDICATIONS: Respiratory distress. CLINICAL DATA: This is the patient's subsequent encounter. Patient reports that signs and symptoms h ave been present for 2 days and indicates a pain score of Nonresponsive. MEDICAL/SURGICAL HISTORY: . Cirrhosis. Gastrointestinal bleed. colitis . Left shoulder replac ement. COMPARISON: [facility], CHEST 1V SINGLE AP, 10/04/2017. . FINDINGS: Endotracheal tube, nasogastric tube and right neck dialysis catheter present in satisfactory position . Symmetric bilateral perihilar and basilar pleural-parenchymal opacities are grossly unchanged. Visu alized cardiac contours are stable. CONCLUSION: No significant interval change Electronically signed by: Geo Riley MD 10/05/2017 10:57 AM EDT
[2017-10-05 11:08] LABS: Baso % (Auto) 0.3 % (0.0-2.0); Eos # (Auto) 0.1 th/mm3 (0.0-0.4); Eos % (Auto) 0.6 % (0.0-4.0); Hemoglobin 8.2 gm/dL (11.6-15.3); Lymph # (Auto) 0.3 th/mm3 (1.0-4.8); Lymph % (Auto) 1.9 % (9.0-44.0); Mean Corpuscular HGB Conc 35.7 % (32.0-36.0); Mean Corpuscular Hemoglobin 30.1 pg (27.0-34.0); Mean Corpuscular Volume 84.2 fL (80.0-100.0); Mean Platelet Volume 8.8 fL (7.0-11.0); Mono # (Auto) 0.8 th/mm3 (0.0-0.9); Mono % (Auto) 5.9 % (0.0-8.0); Neut # (Auto) 12.4 th/mm3 (1.8-7.7); Neut % (Auto) 91.3 % (16.0-70.0); Platelet Count 45 th/mm3 (150-450); Red Blood Count 2.73 mil/mm3 (4.00-5.30); Red Cell Distribution Width 18.3 % (11.6-17.2); White Blood Count 13.6 th/mm3 (4.0-11.0)
[2017-10-05 11:21] LABS: INR 1.6 Ratio; Prothrombin Time 16.6 sec (9.8-11.6)
[2017-10-05 11:44] LABS: Calcium 6.3 mg/dL (8.5-10.1); Carbon Dioxide 18.2 meq/L (21.0-32.0); Potassium 3.3 meq/L (3.5-5.1); Total Protein 3.8 g/dL (6.4-8.2)
[2017-10-05 11:47] LABS: Magnesium 1.6 mg/dL (1.5-2.5); Troponin I 0.07 ng/mL (0.02-0.05)
[2017-10-05 11:48] LABS: Lymphocytes 1 % (9-44); Metamyelocytes 4 % (0-1); Monocytes 1 % (0-8); Tallied Nucleated RBC 1 (0-0)
[2017-10-05 11:50] LABS: Polychromasia 2.4 % (0.0-1.9)
[2017-10-05 11:51] LABS: Platelet Morphology Normal (Normal)
[2017-10-05] MEDS ORDERED: Multivitamin Inj 10 ML, Folic Acid Inj 1 MG in Sodium Chlor 0.9% Inj 500 ML IV.SIG SCH (13:00)
[2017-10-05] MEDS: Normosol-R pH 7.4 Inj 1,000 ML IV.CONT SCH (14:35)
[2017-10-05 18:55] LABS: Hematocrit 23.3 % (35.0-46.0); Hemoglobin 8.2 gm/dL (11.6-15.3)
[2017-10-06] MEDS: Insulin NovoLOG Aspart Correctional Sugar Inj SQ SCH ×5 (01:05→23:57)
[2017-10-06] MEDS: Oral Hygiene Kit OROPHARYNG SCH ×4 (01:06→17:28)
[2017-10-06] MEDS: Normosol-R pH 7.4 Inj 1,000 ML IV.CONT SCH (01:11)
[2017-10-06 02:22] LABS: Baso # (Auto) 0.1 th/mm3 (0.0-0.2); Baso % (Auto) 0.4 % (0.0-2.0); Eos # (Auto) 0.1 th/mm3 (0.0-0.4); Eos % (Auto) 0.5 % (0.0-4.0); Hematocrit 24.3 % (35.0-46.0); Hemoglobin 8.2 gm/dL (11.6-15.3); Lymph # (Auto) 0.5 th/mm3 (1.0-4.8); Lymph % (Auto) 2.7 % (9.0-44.0); Mean Corpuscular HGB Conc 33.9 % (32.0-36.0); Mean Corpuscular Hemoglobin 29.1 pg (27.0-34.0); Mean Corpuscular Volume 85.9 fL (80.0-100.0); Mean Platelet Volume 8.2 fL (7.0-11.0); Mono # (Auto) 1.3 th/mm3 (0.0-0.9); Mono % (Auto) 7.2 % (0.0-8.0); Neut # (Auto) 16.4 th/mm3 (1.8-7.7); Neut % (Auto) 89.2 % (16.0-70.0); Platelet Count 58 th/mm3 (150-450); Red Blood Count 2.83 mil/mm3 (4.00-5.30); Red Cell Distribution Width 19.2 % (11.6-17.2); White Blood Count 18.4 th/mm3 (4.0-11.0)
[2017-10-06] MEDS: Propofol 1000 mg/100 ml Inj 1,000 MG/100 ML BOTTLE IV.CONT PRN ×2 (02:53→21:14)
[2017-10-06 02:54] LABS: Ovalocytes 1+; Platelet Morphology Normal (Normal)
[2017-10-06 02:56] LABS: Albumin 1.9 g/dL (3.4-5.0); Calcium 6.8 mg/dL (8.5-10.1); Carbon Dioxide 20.5 meq/L (21.0-32.0); Potassium 4.2 meq/L (3.5-5.1); Total Protein 3.9 g/dL (6.4-8.2)
[2017-10-06] MEDS: Chlorhexidine Gluconate 2% 1 Pack (2 Cloths) TOPICAL SCH (04:31)
--- NOTE | 2017-10-06 06:08 | XR ---
EXAM DATE: 10/06/2017 5:53 AM EDT AGE/SEX: 52 years / Female INDICATIONS: Shortness of breath, possible pulmonary disease. CLINICAL DATA: This is the patient's subsequent encounter. Patient reports that signs and symptoms h ave been present for 4 - 6 days and indicates a pain score of Nonresponsive. MEDICAL/SURGICAL HISTORY: . Cirrhosis. Gastrointestinal bleed. Colitis . Left shoulder repla cement COMPARISON: [facility], CHEST 1V SINGLE AP, 10/05/2017. . FINDINGS: The tip of ET tube appears at the thoracic inlet. The NG tube is directed into the stomach. The cardi ac silhouette is upper limits of normal. There is diffuse consolidation seen bilaterally. There is si lhouetting of the hemidiaphragms. There is a left shoulder prosthesis in place. CONCLUSION: ET tube in high position at the thoracic inlet. Diffuse areas of consolidation or atelectasis which appear worse. Electronically signed by: Geo Doty MD 10/06/2017 6:07 AM EDT
[2017-10-06] MEDS: Octreotide Inj 500 MCG in Sodium Chlor 0.9% Inj 500 ML IV.CONT SCH ×2 (08:17→17:29)
[2017-10-06] MEDS: Senna/Docusate Sodium 8.6/50 MG Tablet PO SCH ×2 (08:18→21:13)
[2017-10-06] MEDS: rifAXIMin 550 MG Tablet PO SCH ×2 (08:18→21:13)
--- NOTE | 2017-10-06 08:54 | P.PNGI ---
Subjective Interval history: Pt remains on sedation and orally intubated, she does not open her eyes but does have purposeful movements. Pt now on pressors, [place] gtt. FiO2 has been increased to 85%. Discussed with ARNAV Anders, pt no longer having black stools, NG secretions have cleared up now esparza in color. <Margaret Santos - Last Filed: 10/06/17 08:49> Physical Exam Vital signs: Vital Signs 10/05/17 10:00 10/05/17 11:00 10/05/17 11:48 Temperature Pulse Rate 104 H 98 H Respiratory Rate 20 20 Blood Pressure Pulse Oximetry 94 L 10/05/17 12:00 10/05/17 14:00 10/05/17 16:00 Temperature 99 F 99.1 F Pulse Rate 103 H 97 H 98 H Respiratory Rate 24 19 Blood Pressure 100/58 L 107/61 Pulse Oximetry 94 L 92 L 10/05/17 16:09 10/05/17 16:12 10/05/17 18:00 Temperature Pulse Rate 98 H 95 H Respiratory Rate 18 19 Blood Pressure Pulse Oximetry 90 L 10/05/17 20:00 10/05/17 21:23 10/05/17 22:00 Temperature 98.3 F Pulse Rate 105 H 94 H 94 H Respiratory Rate 16 16 Blood Pressure 96/51 L Pulse Oximetry 93 L 95 10/06/17 00:00 10/06/17 00:36 10/06/17 02:00 Temperature 98.4 F Pulse Rate 97 H 97 H 105 H Respiratory Rate 17 16 Blood Pressure 91/55 L Pulse Oximetry 96 10/06/17 04:00 10/06/17 04:17 10/06/17 06:00 Temperature 98.6 F Pulse Rate 101 H 101 H 98 H Respiratory Rate 29 H 26 H Blood Pressure 99/55 L Pulse Oximetry 92 L 95 10/06/17 08:00 Temperature Pulse Rate 103 H Respiratory Rate 26 H Blood Pressure Pulse Oximetry 91 L Intake & Output 10/05/17 10/06/17 10/06/17 18:59 06:59 18:59 Intake Total 3785.7 / 3785.7 1900.5 / 1900.5 438.6 / 438.6 Output Total 600 / 600 375 / 375 Balance 3185.7 / 3185.7 1525.5 / 1525.5 438.6 / 438.6 Intake: IV 3785.7 / 3785.7 1900.5 / 1900.5 438.6 / 438.6 Normosol-R Inj 1,000 ML @ 84 1000 / 1000 421 / 421 mls/hr IV.CONT .[id number] [facility] Rx# :[id number] SandoSTATIN Inj 500 MCG In NS 500.5 / 500.5 500.5 / 500.5 Inj 500 ML @ 50 MCG/HR 50.05 mls/hr IV.CONT .Q10H [facility] Rx#: [id number] Protonix Inj 80 MG In NS Inj 100 / 100 100 / 100 100 ML @ 10 mls/hr IV.CONT CONT [facility] Rx#:[id number] Diprivan 1000 mg/100 ml Inj 1, 100 / 100 100 / 100 17.6 / 17.6 000 mg In 100 ml @ 5 MCG/KG/MIN 2.034 mls/hr IV.CONT TITRATE PRN Rx#:[id number] NS Inj 1,000 ML @ 84 mls/hr IV. 1575 / 1575 CONT .[id number] [facility] Rx#:[id number] MVI-12 Inj 10 ML Folvite Inj 1 510.2 / 510.2 MG In NS Inj 500 ML @ 125 mls/ hr IV.SIG Q24H [facility] Rx#:[id number] MVI-12 Inj 10 ML Thiamine Inj 0 / 0 100 MG Folvite Inj 1 MG In NS Inj 500 ML @ 125 mls/hr IV.SIG Q24H [facility] Rx#:[id number] KCl 40 mEq Premix Inj 40 meq In 100 / 100 100 ml @ 25 mls/hr IV.SIG UNSCH PRN Rx#:[id number] NS Inj 1,000 ML @ Wide Open IV. 1000 / 1000 SIG BOLUS ONE Rx#:[id number] Rocephin Inj 1,000 MG In NS Inj 100 / 100 100 ML @ 200 mls/hr IV.SIG Q24H [facility] Rx#:[id number] Output: Urine Amount (Catheter) 600 / 600 250 / 250 Indwelling Urethral Catheter 600 / 600 250 / 250 Gastric Drainage 125 / 125 Right Nare Nasogastric Tube 125 / 125 Other: Date of Last Bowel Movement 10/05/17 10/05/17 # Incontinent Bowel Movements 1 - Constitutional no acute distress - Routine HEENT Exam Head: Present: normocephalic, atraumatic - Routine Respiratory Exam Present: patient mechanically ventilated - Routine Abdominal Exam Present: normoactive bowel sounds, distended, firm - Routine Skin Exam Present: dry, warm - Routine Neurological Exam purposeful movement - Urinary Catheter Management Indwelling Urethral Catheter Cath placed during this visit: yes Reason for continuing: Acute urinary retention Insertion date: 10/05/17 <Margaret Santos - Last Filed: 10/06/17 08:49> Vital signs: Vital Signs 10/05/17 11:48 10/05/17 12:00 10/05/17 14:00 Temperature 99 F Pulse Rate 103 H 97 H Respiratory Rate 20 24 Blood Pressure 100/58 L Pulse Oximetry 94 L 94 L 10/05/17 16:00 10/05/17 16:09 10/05/17 16:12 Temperature 99.1 F Pulse Rate 98 H 98 H Respiratory Rate 19 18 19 Blood Pressure 107/61 Pulse Oximetry 92 L 90 L 10/05/17 18:00 10/05/17 20:00 10/05/17 21:23 Temperature 98.3 F Pulse Rate 95 H 105 H 94 H Respiratory Rate 16 16 Blood Pressure 96/51 L Pulse Oximetry 93 L 95 10/05/17 22:00 10/06/17 00:00 10/06/17 00:36 Temperature 98.4 F Pulse Rate 94 H 97 H 97 H Respiratory Rate 17 16 Blood Pressure 91/55 L Pulse Oximetry 96 10/06/17 02:00 10/06/17 04:00 10/06/17 04:17 Temperature 98.6 F Pulse Rate 105 H 101 H 101 H Respiratory Rate 29 H 26 H Blood Pressure 99/55 L Pulse Oximetry 92 L 95 10/06/17 04:30 10/06/17 04:45 10/06/17 05:00 Temperature Pulse Rate 101 H 97 H 94 H Respiratory Rate 29 H 24 24 Blood Pressure 99/55 L 93/54 L 83/48 L Pulse Oximetry 91 L 93 L 92 L 10/06/17 05:15 10/06/17 05:30 10/06/17 05:45 Temperature Pulse Rate 97 H 95 H 98 H Respiratory Rate 25 H 24 26 H Blood Pressure 88/51 L 88/55 L 93/53 L Pulse Oximetry 94 L 91 L 88 L 10/06/17 06:00 10/06/17 06:15 10/06/17 06:30 Temperature Pulse Rate 98 H 95 H 93 H Respiratory Rate 28 H 23 25 H Blood Pressure 96/53 L 88/50 L 87/50 L Pulse Oximetry 91 L 91 L 92 L 10/06/17 06:45 10/06/17 07:00 10/06/17 07:15 Temperature Pulse Rate 93 H 101 H 98 H Respiratory Rate 25 H 21 27 H Blood Pressure 85/49 L 93/52 L 94/54 L Pulse Oximetry 91 L 92 L 91 L 10/06/17 07:30 10/06/17 07:45 10/06/17 08:00 Temperature 98.6 F Pulse Rate 99 H 94 H 102 H Respiratory Rate 18 21 26 H Blood Pressure 100/56 L 91/51 L 104/54 L Pulse Oximetry 92 L 94 L 89 L 10/06/17 08:15 10/06/17 08:30 10/06/17 08:45 Temperature Pulse Rate 109 H 109 H 114 H Respiratory Rate 23 20 15 Blood Pressure 94/54 L 93/53 L 94/53 L Pulse Oximetry 89 L 89 L 91 L 10/06/17 09:00 10/06/17 09:15 10/06/17 09:30 Temperature Pulse Rate 109 H 105 H 106 H Respiratory Rate 22 21 2 L Blood Pressure 93/50 L 88/52 L 88/53 L Pulse Oximetry 91 L 91 L 90 L 10/06/17 09:45 10/06/17 09:48 10/06/17 10:00 Temperature Pulse Rate 103 H 104 H 106 H Respiratory Rate 0 L 1 L 0 L Blood Pressure 81/46 L 84/51 L 88/54 L Pulse Oximetry 91 L 91 L 91 L 10/06/17 10:10 10/06/17 10:15 Temperature Pulse Rate 109 H Respiratory Rate 25 H 0 L Blood Pressure 98/57 L Pulse Oximetry 92 L 92 L Intake & Output 10/05/17 10/06/17 10/06/17 18:59 06:59 18:59 Intake Total 3785.7 / 3785.7 1900.5 / 1900.5 538.6 / 538.6 Output Total 600 / 600 375 / 375 Balance 3185.7 / 3185.7 1525.5 / 1525.5 538.6 / 538.6 Intake: IV 3785.7 / 3785.7 1900.5 / 1900.5 538.6 / 538.6 Normosol-R Inj 1,000 ML @ 84 1000 / 1000 421 / 421 mls/hr IV.CONT .[id number] [facility] Rx# :[id number] SandoSTATIN Inj 500 MCG In NS 500.5 / 500.5 500.5 / 500.5 Inj 500 ML @ 50 MCG/HR 50.05 mls/hr IV.CONT .Q10H [facility] Rx#: [id number] Protonix Inj 80 MG In NS Inj 100 / 100 100 / 100 100 / 100 100 ML @ 10 mls/hr IV.CONT CONT [facility] Rx#:[id number] Diprivan 1000 mg/100 ml Inj 1, 100 / 100 100 / 100 17.6 / 17.6 000 mg In 100 ml @ 5 MCG/KG/MIN 2.034 mls/hr IV.CONT TITRATE PRN Rx#:[id number] NS Inj 1,000 ML @ 84 mls/hr IV. 1575 / 1575 CONT .[id number] [facility] Rx#:[id number] MVI-12 Inj 10 ML Folvite Inj 1 510.2 / 510.2 MG In NS Inj 500 ML @ 125 mls/ hr IV.SIG Q24H [facility] Rx#:[id number] MVI-12 Inj 10 ML Thiamine Inj 0 / 0 100 MG Folvite Inj 1 MG In NS Inj 500 ML @ 125 mls/hr IV.SIG Q24H [facility] Rx#:[id number] KCl 40 mEq Premix Inj 40 meq In 100 / 100 100 ml @ 25 mls/hr IV.SIG UNSCH PRN Rx#:[id number] NS Inj 1,000 ML @ Wide Open IV. 1000 / 1000 SIG BOLUS ONE Rx#:[id number] Rocephin Inj 1,000 MG In NS Inj 100 / 100 100 ML @ 200 mls/hr IV.SIG Q24H [facility] Rx#:[id number] Output: Urine Amount (Catheter) 600 / 600 250 / 250 Indwelling Urethral Catheter 600 / 600 250 / 250 Gastric Drainage 125 / 125 Right Nare Nasogastric Tube 125 / 125 Other: Date of Last Bowel Movement 10/05/17 10/05/17 # Incontinent Bowel Movements 1 - Urinary Catheter Management Indwelling Urethral Catheter Cath placed during this visit: no <Aquiles Joyner - Last Filed: 10/06/17 11:07> Results - Labs CBC & Chem 7: 10/06/17 01:40 10/06/17 01:40 Laboratory Results - last 24 hr 10/05/17 10/05/17 10/05/17 09:44 10:44 10:44 WBC RBC Hgb Hct MCV MCH MCHC RDW Plt Count MPV Prelim Diff (Auto) Neut % (Auto) Lymph % (Auto) [place] % (Auto) Eos % (Auto) Baso % (Auto) Neut # (Auto) Lymph # (Auto) [place] # (Auto) Eos # (Auto) Baso # (Auto) WBC Differential Diff Scan Seg Neuts % (Manual) Band Neuts % (Manual) Lymphocytes % (Manual) Monocytes % (Manual) Metamyelocytes % (Man) Abs Neuts (Manual) Nucleated RBCs/100 WBC Differential Comment Platelet Estimate Platelet Morphology Polychromasia Ovalocytes PT INR Sodium Potassium Chloride Carbon Dioxide Anion Gap BUN Creatinine Estimated GFR POC Glucose Random Glucose Lactic Acid 2.9 H Calcium Prot Corrected Calcium Phosphorus 3.0 D Magnesium 1.6 Total Bilirubin AST ALT Alkaline Phosphatase Troponin I 0.07 H D Total Protein Albumin Urine Opiates Screen Neg Ur Barbiturates Screen Neg Ur Amphetamines Screen Neg U Benzodiazepines Scrn Pos H Urine Cocaine Screen Neg U Cannabinoids Screen Neg 10/05/17 10/05/17 10/05/17 10:44 10:44 10:44 WBC 13.6 H RBC 2.73 L Hgb 8.2 L Hct 23.0 L MCV 84.2 MCH 30.1 MCHC 35.7 RDW 18.3 H D Plt Count 45 L MPV 8.8 Prelim Diff (Auto) Slide review pending Neut % (Auto) 91.3 H Lymph % (Auto) 1.9 L [place] % (Auto) 5.9 Eos % (Auto) 0.6 Baso % (Auto) 0.3 Neut # (Auto) 12.4 H Lymph # (Auto) 0.3 L [place] # (Auto) 0.8 Eos # (Auto) 0.1 Baso # (Auto) 0.0 WBC Differential Manual diff final Diff Scan Seg Neuts % (Manual) 53 Band Neuts % (Manual) 41 H Lymphocytes % (Manual) 1 L Monocytes % (Manual) 1 Metamyelocytes % (Man) 4 H Abs Neuts (Manual) 13.3 H Nucleated RBCs/100 WBC 1 H Differential Comment . Platelet Estimate Low L Platelet Morphology Normal Polychromasia 2.4 H Ovalocytes PT 16.6 H INR 1.6 Sodium 153 H Potassium 3.3 L D Chloride 122 H Carbon Dioxide 18.2 L Anion Gap 13 BUN 54 H Creatinine 1.50 H Estimated GFR 36 L POC Glucose Random Glucose 109 H Lactic Acid Calcium 6.3 L* Prot Corrected Calcium 8.0 L Phosphorus Magnesium Total Bilirubin 7.4 H AST 90 H ALT 32 Alkaline Phosphatase 104 Troponin I Total Protein 3.8 L Albumin 2.0 L Urine Opiates Screen Ur Barbiturates Screen Ur Amphetamines Screen U Benzodiazepines Scrn Urine Cocaine Screen U Cannabinoids Screen 10/05/17 10/05/17 10/05/17 12:00 17:43 18:30 WBC RBC Hgb Hct MCV MCH MCHC RDW Plt Count MPV Prelim Diff (Auto) Neut % (Auto) Lymph % (Auto) [place] % (Auto) Eos % (Auto) Baso % (Auto) Neut # (Auto) Lymph # (Auto) [place] # (Auto) Eos # (Auto) Baso # (Auto) WBC Differential Diff Scan Seg Neuts % (Manual) Band Neuts % (Manual) Lymphocytes % (Manual) Monocytes % (Manual) Metamyelocytes % (Man) Abs Neuts (Manual) Nucleated RBCs/100 WBC Differential Comment Platelet Estimate Platelet Morphology Polychromasia Ovalocytes PT INR Sodium Potassium Chloride Carbon Dioxide Anion Gap BUN Creatinine Estimated GFR POC Glucose 108 111 H Random Glucose Lactic Acid Calcium Prot Corrected Calcium Phosphorus Magnesium Total Bilirubin AST ALT Alkaline Phosphatase Troponin I 0.05 Total Protein Albumin Urine Opiates Screen Ur Barbiturates Screen Ur Amphetamines Screen U Benzodiazepines Scrn Urine Cocaine Screen U Cannabinoids Screen 10/05/17 10/05/17 10/05/17 18:30 21:55 23:30 WBC RBC Hgb 8.2 L Hct 23.3 L MCV MCH MCHC RDW Plt Count MPV Prelim Diff (Auto) Neut % (Auto) Lymph % (Auto) [place] % (Auto) Eos % (Auto) Baso % (Auto) Neut # (Auto) Lymph # (Auto) [place] # (Auto) Eos # (Auto) Baso # (Auto) WBC Differential Diff Scan Seg Neuts % (Manual) Band Neuts % (Manual) Lymphocytes % (Manual) Monocytes % (Manual) Metamyelocytes % (Man) Abs Neuts (Manual) Nucleated RBCs/100 WBC Differential Comment Platelet Estimate Platelet Morphology Polychromasia Ovalocytes PT INR Sodium Potassium Chloride Carbon Dioxide Anion Gap BUN Creatinine Estimated GFR POC Glucose 116 H Random Glucose Lactic Acid Calcium Prot Corrected Calcium Phosphorus Magnesium Total Bilirubin AST ALT Alkaline Phosphatase Troponin I 0.05 Total Protein Albumin Urine Opiates Screen Ur Barbiturates Screen Ur Amphetamines Screen U Benzodiazepines Scrn Urine Cocaine Screen U Cannabinoids Screen 10/06/17 10/06/17 10/06/17 01:40 01:40 06:01 WBC 18.4 H RBC 2.83 L Hgb 8.2 L Hct 24.3 L MCV 85.9 MCH 29.1 MCHC 33.9 RDW 19.2 H Plt Count 58 L MPV 8.2 Prelim Diff (Auto) Slide review pending Neut % (Auto) 89.2 H Lymph % (Auto) 2.7 L [place] % (Auto) 7.2 Eos % (Auto) 0.5 Baso % (Auto) 0.4 Neut # (Auto) 16.4 H Lymph # (Auto) 0.5 L [place] # (Auto) 1.3 H Eos # (Auto) 0.1 Baso # (Auto) 0.1 WBC Differential . Diff Scan Auto diff confirmed Seg Neuts % (Manual) Band Neuts % (Manual) Lymphocytes % (Manual) Monocytes % (Manual) Metamyelocytes % (Man) Abs Neuts (Manual) Nucleated RBCs/100 WBC Differential Comment . Platelet Estimate Low L Platelet Morphology Normal Polychromasia Ovalocytes 1+ H PT INR Sodium 151 H Potassium 4.2 D Chloride 122 H Carbon Dioxide 20.5 L Anion Gap 9 BUN 63 H Creatinine 1.69 H Estimated GFR 32 L POC Glucose 109 Random Glucose 104 Lactic Acid Calcium 6.8 L* Prot Corrected Calcium 8.6 Phosphorus Magnesium Total Bilirubin 8.5 H AST 93 H ALT 32 Alkaline Phosphatase 118 H Troponin I Total Protein 3.9 L Albumin 1.9 L Urine Opiates Screen Ur Barbiturates Screen Ur Amphetamines Screen U Benzodiazepines Scrn Urine Cocaine Screen U Cannabinoids Screen - Imaging Impressions Chest X-Ray 10/05/17 10:19 CONCLUSION: No significant interval change Chest X-Ray 10/06/17 05:00 CONCLUSION: ET tube in high position at the thoracic inlet. Diffuse areas of consolidation or atelectasis which appear worse. <Margaret Santos - Last Filed: 10/06/17 08:49> - Labs CBC & Chem 7: 10/06/17 01:40 10/06/17 01:40 Laboratory Results - last 24 hr 10/05/17 10/05/17 10/05/17 10:44 10:44 10:44 WBC RBC Hgb Hct MCV MCH MCHC RDW Plt Count MPV Prelim Diff (Auto) Neut % (Auto) Lymph % (Auto) [place] % (Auto) Eos % (Auto) Baso % (Auto) Neut # (Auto) Lymph # (Auto) [place] # (Auto) Eos # (Auto) Baso # (Auto) WBC Differential Diff Scan Seg Neuts % (Manual) Band Neuts % (Manual) Lymphocytes % (Manual) Monocytes % (Manual) Metamyelocytes % (Man) Abs Neuts (Manual) Nucleated RBCs/100 WBC Differential Comment Platelet Estimate Platelet Morphology Polychromasia Ovalocytes PT 16.6 H INR 1.6 Sodium Potassium Chloride Carbon Dioxide Anion Gap BUN Creatinine Estimated GFR POC Glucose Random Glucose Lactic Acid 2.9 H Calcium Prot Corrected Calcium Phosphorus 3.0 D Magnesium 1.6 Total Bilirubin AST ALT Alkaline Phosphatase Troponin I 0.07 H D Total Protein Albumin 10/05/17 10/05/17 10/05/17 10:44 10:44 12:00 WBC 13.6 H RBC 2.73 L Hgb 8.2 L Hct 23.0 L MCV 84.2 MCH 30.1 MCHC 35.7 RDW 18.3 H D Plt Count 45 L MPV 8.8 Prelim Diff (Auto) Slide review pending Neut % (Auto) 91.3 H Lymph % (Auto) 1.9 L [place] % (Auto) 5.9 Eos % (Auto) 0.6 Baso % (Auto) 0.3 Neut # (Auto) 12.4 H Lymph # (Auto) 0.3 L [place] # (Auto) 0.8 Eos # (Auto) 0.1 Baso # (Auto) 0.0 WBC Differential Manual diff final Diff Scan Seg Neuts % (Manual) 53 Band Neuts % (Manual) 41 H Lymphocytes % (Manual) 1 L Monocytes % (Manual) 1 Metamyelocytes % (Man) 4 H Abs Neuts (Manual) 13.3 H Nucleated RBCs/100 WBC 1 H Differential Comment . Platelet Estimate Low L Platelet Morphology Normal Polychromasia 2.4 H Ovalocytes PT INR Sodium 153 H Potassium 3.3 L D Chloride 122 H Carbon Dioxide 18.2 L Anion Gap 13 BUN 54 H Creatinine 1.50 H Estimated GFR 36 L POC Glucose 108 Random Glucose 109 H Lactic Acid Calcium 6.3 L* Prot Corrected Calcium 8.0 L Phosphorus Magnesium Total Bilirubin 7.4 H AST 90 H ALT 32 Alkaline Phosphatase 104 Troponin I Total Protein 3.8 L Albumin 2.0 L 10/05/17 10/05/17 10/05/17 17:43 18:30 18:30 WBC RBC Hgb 8.2 L Hct 23.3 L MCV MCH MCHC RDW Plt Count MPV Prelim Diff (Auto) Neut % (Auto) Lymph % (Auto) [place] % (Auto) Eos % (Auto) Baso % (Auto) Neut # (Auto) Lymph # (Auto) [place] # (Auto) Eos # (Auto) Baso # (Auto) WBC Differential Diff Scan Seg Neuts % (Manual) Band Neuts % (Manual) Lymphocytes % (Manual) Monocytes % (Manual) Metamyelocytes % (Man) Abs Neuts (Manual) Nucleated RBCs/100 WBC Differential Comment Platelet Estimate Platelet Morphology Polychromasia Ovalocytes PT INR Sodium Potassium Chloride Carbon Dioxide Anion Gap BUN Creatinine Estimated GFR POC Glucose 111 H Random Glucose Lactic Acid Calcium Prot Corrected Calcium Phosphorus Magnesium Total Bilirubin AST ALT Alkaline Phosphatase Troponin I 0.05 Total Protein Albumin 10/05/17 10/05/17 10/06/17 21:55 23:30 01:40 WBC RBC Hgb Hct MCV MCH MCHC RDW Plt Count MPV Prelim Diff (Auto) Neut % (Auto) Lymph % (Auto) [place] % (Auto) Eos % (Auto) Baso % (Auto) Neut # (Auto) Lymph # (Auto) [place] # (Auto) Eos # (Auto) Baso # (Auto) WBC Differential Diff Scan Seg Neuts % (Manual) Band Neuts % (Manual) Lymphocytes % (Manual) Monocytes % (Manual) Metamyelocytes % (Man) Abs Neuts (Manual) Nucleated RBCs/100 WBC Differential Comment Platelet Estimate Platelet Morphology Polychromasia Ovalocytes PT INR Sodium 151 H Potassium 4.2 D Chloride 122 H Carbon Dioxide 20.5 L Anion Gap 9 BUN 63 H Creatinine 1.69 H Estimated GFR 32 L POC Glucose 116 H Random Glucose 104 Lactic Acid Calcium 6.8 L* Prot Corrected Calcium 8.6 Phosphorus Magnesium Total Bilirubin 8.5 H AST 93 H ALT 32 Alkaline Phosphatase 118 H Troponin I 0.05 Total Protein 3.9 L Albumin 1.9 L 10/06/17 10/06/17 01:40 06:01 WBC 18.4 H RBC 2.83 L Hgb 8.2 L Hct 24.3 L MCV 85.9 MCH 29.1 MCHC 33.9 RDW 19.2 H Plt Count 58 L MPV 8.2 Prelim Diff (Auto) Slide review pending Neut % (Auto) 89.2 H Lymph % (Auto) 2.7 L [place] % (Auto) 7.2 Eos % (Auto) 0.5 Baso % (Auto) 0.4 Neut # (Auto) 16.4 H Lymph # (Auto) 0.5 L [place] # (Auto) 1.3 H Eos # (Auto) 0.1 Baso # (Auto) 0.1 WBC Differential . Diff Scan Auto diff confirmed Seg Neuts % (Manual) Band Neuts % (Manual) Lymphocytes % (Manual) Monocytes % (Manual) Metamyelocytes % (Man) Abs Neuts (Manual) Nucleated RBCs/100 WBC Differential Comment . Platelet Estimate Low L Platelet Morphology Normal Polychromasia Ovalocytes 1+ H PT INR Sodium Potassium Chloride Carbon Dioxide Anion Gap BUN Creatinine Estimated GFR POC Glucose 109 Random Glucose Lactic Acid Calcium Prot Corrected Calcium Phosphorus Magnesium Total Bilirubin AST ALT Alkaline Phosphatase Troponin I Total Protein Albumin - Imaging Impressions Chest X-Ray 10/06/17 05:00 CONCLUSION: ET tube in high position at the thoracic inlet. Diffuse areas of consolidation or atelectasis which appear worse. <Aquiles Jonyer - Last Filed: 10/06/17 11:07> Assessment and Plan - Plan Assessment: - UGI bleeding in setting of cirrhosis Pt reports melena and hematemesis since 3 am yesterday. She is currently admitted to ICU and continues to have alfred blood from her NG tube and per RN had multiple episodes of melena overnight. Pt denies any abdominal pain. Pt is a poor historian and can not recall if she has had GIB in the past. Unsure when her last EGD was. States colonoscopy was 3 months ago. She is currently on vacation, GI doctor is Dr. Randle in [place], [place], pt reports last seeing him 3 months ago EGD (10/04) Esophagus: Normal, no varices. Stomach: significant amount of blood throughout the stomach, large deep ulcer in the antrum with adherent clot, this is the source of bleeding, injection of the ulcer was done blindly under the clot with 9 cc of epinephrine, then the clot was irrigated and removed and cautery of the ulcer with visible vessels that were obvious, no active bleeding at the end of the case. Duodenum: normal - Cirrhosis- pt reports secondary to ETOH abuse, denies any alcohol in 8 months. Not on liver transplant list, states not sick enough. PT also reports history of hepatitis but in unsure which kind and does not recall being treated for this. Denies tattoos, history of IV drug use or any illicit drugs, and unprotected sex. Thrombocytopenia (plts-53) hypoalbuminemia (albumin 2.2) coagulopathy (INR- 3.8 before correction) US liver (10/04) Cirrhotic liver with small amount of ascites and reversal of flow in the portal vein. Gallbladder wall thickening with cholelithiasis. These findings are commonly seen in the setting of cirrhosis and limit sonographic sensitivity for early acute cholecystitis. Small bilateral pleural effusions. Hepatitis panel negative. - Elevated LFTs- elevated DF and labs elevated in a manner consistent with ETOH however pt denies AST-57 ALT-22 Alk phos-128 T bili-6.5 - Hyperammonemia- ammonia-83- Pt on Xifaxan and Lactulose - History of pancreatitis- pt reports recurrent episodes of this (10/05) Pt S/P EGD yesterday as noted above, left intubated after the procedure. Pt now on 65% FiO2, she is on Propofol for sedation. She received an additional 2 U of PRBCs after EGD yesterday and hgb has been stable since transfusion, has had 5 U PRBCs total. Nurse reports pt had multiple black stools with BRB mixed in overnight. Further recommendations based on hgb trends and clinical course (10/06) Discussed with ARNAV Anders. Pt with NG tube to LIWS with esparza colored secretions, no more blood noted. She states pt is no longer having black stools. Pt with purposeful movements, remains on Propofol for sedation. Orally intubated with increase in FiO2 and PEEP with worsening chest x-ray. Pt now on pressors, [place] gtt. H/H remains stable. Per RN pt has not been receiving medication through NG. OK to put meds through NG. Now that bleeding has subsided will work on treating ammonia level Plan: DC Octreotide Remain on Protonix gtt Lactulose QID Monitor H/H Transfuse as needed Pt remains critically ill Further recommendations based on course Pt has been seen and examined by myself and Dr. Joyner and this note is written on his behalf <Margaret Santos - Last Filed: 10/06/17 08:49> - Plan Patient was seen and examined, stable GI krueger, will stop octreotide, no sign of active bleeding, she still have significant poor respiration still intubated, no other issues from GI perspective, we will follow-up as needed please call us back if there is any sign of bleeding or any other GI issues <Aquiles Joyner - Last Filed: 10/06/17 11:07>
[2017-10-06] MEDS: Pantoprazole Inj 80 MG in Sodium Chlor 0.9% Inj 100 ML IV.CONT SCH (10:37)
[2017-10-06] MEDS: Chlorhexidine 0.12% Oral Kit 15 ML UDC OROPHARYNG SCH ×2 (10:38→21:14)
--- NOTE | 2017-10-06 10:43 | P.CONPAL ---
Consult Service: Palliative Care Requesting Physician: Fernie Ayala Reason for Consult: a. To assist with evaluation and management of symptoms including: Shortness of breath, at risk for pain b. To assist medical decision maker(s) with: better understanding of current medical conditions; weighing benefits/burdens of medical treatment options; making medical treatment decisions. Primary Care Provider: UNKNOWN History of Present Illness History of Present Illness: Ms. Allen is a 52 years old patient with a past medical history significant for cirrhosis secondary to EtOH abuse, hepatitis, GI bleed, anemia, colitis, tobacco use and history of blood transfusion. 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 Patient's systolic blood pressure was in the 80s upon EMS arrival at the scene. 1 L IV fluids was administered en route to the hospital. Patient also reported that she had had multiple episodes of melena associated with fecal incontinence. Patient is currently in [place] for a vacation. She resides in [facility] and she follows with ALISA Randle in [place] ([phone]). ER course: * Vitals signs: Temperature 98F, pulse 94, respiration 14, BP 101/54, oxygen saturation 100%. * Laboratory workup revealed WBC 12.8, hemoglobin 4.7, hematocrit 14.6, platelet count 94, PT 27.8, INR 3.8, APTT 64.0, fibrinogen less than 50, sodium 146, potassium 4.9, BUN/creatinine 38/0.85, total bilirubin 3.9, AST 37, ALT 15 , ammonia 67, total protein 3.6, albumin 1.2, lipase 404 * Hepatic panel negative * Chest x-ray revealed mild hazy opacity at the left lung base. * Patient started on octreotide infusion and Protonix infusion-Protonix bolus administered. * 3 Liters normal saline administered in ER * NG tube placed * GI Dr. Joyner saw patient in ER * Patient admitted for further evaluation and treatment under Critical care management physician. Patient continued to have blood in the NG tube and nursing reported patient patient having bloody stool. Patient seen by GI on 10/04/17, recommended EGD, NG to low intermittent wall suction and H&H serial monitoring. Patient underwent upper endoscopy with ablation. Findings include an ulcer and bleeding was controlled with ablation of the house and injection with epinephrine. Ultrasound liver on 10/04 revealed cirrhotic liver with small amount of ascites and reversal of flow in the portal. Gallbladder wall thickening with cholelithiasis and small bilateral pleural effusions. Patient was intubated on 0 10/04 for GI procedure and remained intubated. She has required pressor support for hypotension. Patient has received 6 units PRBCs, 2 units FFP, 2 thawed plasma, and 1 10 pack cryoprecipitate to date. Clinical course complicated with leukocytosis, hypotension,shortness of breath. Palliative care consulted to assist with symptom management and establishing goals of medical treatment. Chest x-ray today revealing diffuse areas of consolidation or atelectasis which appear worse. Laboratory workup today revealing WBC 18.4, hemoglobin 8.2, hematocrit 24.3, platelet count 58, sodium 151, potassium 4.2, BUN/creatinine 63 /1.69, AST 93, ALT 32, total protein 3.9, albumin 1.9. Sputum culture sent today. Patient is afebrile. Patient seen and examined in the room on MICU. PER report from bedside RN, no evidence of bleeding seen today. Patient is intubated, sedated on mechanical ventilation. Patient is on full ventilatory support with PEEP of 12 and FiO2 85 % with O2 saturation in the mid 90s. She is currently on Wilton-Synephrine infusion at 100 mcg; propofol infusion at 10 mcg/kg/min and Protonix infusion at 8 mg/h. Patient's current BP is 94/50 with a mean arterial pressure of 67. Telephone call placed to patient`s mother Karina Zelaya [phone] who is the only listed contact-No response- voice message left with Palliative care contact information. Received a call from patient`s brother Nicko Zelaya([phone]) who provided some of patient`s psychosocial and past medical history. Updated him on patient` s current medical status. Patient`s brother stated that he does not remember patient ever completing advance directives before and he is the only sibling patient has. Patient`s bother stated that patient has not been doing well for a long time due to liver cirrhosis and states that patient has continued to consume alcohol. He mentioned that if he was to make decisions for his sister, he would not let her suffer but , "let her go peacefully" but he knows that decision falls to patient`s mother. According to patient`s brother, patient`s primary physician recently had given her a prognosis of 4 months if she continued to drink alcohol of which she continued to drink alcohol. Patient`s brother appropriately tearful during conversation. He is also concerned of his mothers` well being. He mentioned that patient is very close to her mother and patient`s mother who is most likely the health care proxy may have difficulty in decision making. Patient`s brother has a clear understanding of patient`s medical condition and medical complications patient is faced with. Met with patient`s mother at bedside, had a meeting in the conference room on MICU. Introduced palliative care and its role in symptom management and establishment of goals of medical treatment. Patient`s mother very emotional and appropriately tearful during meeting. Allowed mother to express her feelings and provided listening and acknowledgment. Patient`s mother stated that patient had a blood clot a few weeks ago and has had some falls. She has been taking a lot of Aleve for pain. Patient`s mother provided most of patient psychosocial, medical history and events leading to this hospitalization. Patient`s mother stated that she is patient`s Health care surrogate and copies may be obtained from patient`s primary care physician Dr. Duke in [place]. Patient's mother would not like patient to be in a vegetative state and would not allow her daughter to suffer. However she mentions that it is time she would want to give patient a chance and she is hopeful that patient might medically improve. Patient's mother fully understands how critical patient is at this time. Addressed code status, discussed CPR complications, benefits and limitations. In the event of cardiac arrest, patient`s mother does not want patient to be resuscitated, no CPR, no shock. In the event of accidental extubation she would like patient to be reintubated. Patient`s mother would not like patient to be trached or have a PEG tube placed and live in a fdc or live in a vegetative state. Anticipatory guidance provided for both scenarios - aggressive goals and comfort oriented goals. At this time patient`s mother wants aggressive goals short of CPR, and shock. Function/Cognitive Trajectory: Patient is from [facility] and came on a vacation to [place]. Patient reported prior to intubation that she follows with GI Dr. Randle in [place], [place]. She also reported that she is not a candidate for liver transplant because "she is not sick enough". Patient resides at home with her mother and according to her brother Nicko patient has been sick for a long time from complications associated with liver cirrhosis and unfortunately has continued to consume alcohol. Patient has had multiple falls from being intoxicated and 2 weeks ago she fell and had a "hip fracture". Since then she has been ambulating with a walker and a cane. She was able to perform her ADLs and was able to verbalize her needs prior to hospitalization. Review of Systems Constitutional: Denies chills, Denies fever(s) Eyes: Denies change in vision Ears, Nose, Mouth, and Throat: Denies abnormal hearing Cardiovascular: Reports generalized swelling, Reports shortness of breath Respiratory: Reports shortness of breath Gastrointestinal: Reports coffee ground vomit, Reports loose stools, Reports nausea, Reports vomiting, Reports vomiting blood, Denies abdominal pain, Denies constipation Genitourinary: Denies blood in urine Musculoskeletal: Denies joint swelling Skin/Breast: Reports yellowing of the skin, Denies redness, Denies sores Neurologic: Denies abnormal hearing Endocrine: Denies rapid, pounding, or irregular heartbeat Hematologic/Lymphatic: Reports easy bleeding PMFSH - History History Provided By: Medical Record - Medical History Medical History: Medical History (Last Reviewed 10/06/17 @ 08:46 by Mera Berrios) Anemia Colitis GI bleed History of blood transfusion Liver cirrhosis - Surgical History Surgical History: Surgical History (Last Reviewed 10/06/17 @ 08:46 by Mera Berrios) H/O shoulder surgery - Family History Family History: Family History (Last Reviewed 10/04/17 @ 07:52 by Mariajose Bowie) Other No significant family history - Tobacco History Second Hand Smoke Exposure: Yes Tobacco Use In Past 30 Days: Yes Smoking Status: Current every day smoker Tobacco Type: Cigarettes - Alcohol History How Often Do You Have a Drink Containing Alcohol: 2 to 4 times a month - Substance Use History Substance History: Active Abuse - Travel History Recent Travel in the [place] Within the Last 8 Weeks: No Recent Travel Out of the Country Within the Last 8 Weeks: No - Immunization History Tetanus Immunization: Unsure Hx Influenza Vaccine This Season: Yes Medications and Allergies Active Medications: Active Medications Al Hydroxide/Mg Hydroxide (Milk Of Magnesia Liq) 30 ml PO Q12H PRN PRN Reason: Mild Constipation Albuterol (Albuterol Neb (Prn)) 2.5 mg NEB Q2HR NEB PRN PRN Reason: SHORTNESS OF BREATH/WHEEZING Albuterol (Duoneb Neb (Delgado)) 1 ampul NEB Q4HR NEB [facility] Last Admin: 10/06/17 08:00 Dose: 1 ampul Bisacodyl (Dulcolax Supp) 10 mg RECTAL DAILY PRN PRN Reason: SEVERE CONSITIPATION Chlorhexidine Gluconate (Chlorhexidine 2% Cloth) 3 pack TOPICAL DAILY@0400 [place] Stop: 10/09/17 03:59 Last Admin: 10/06/17 04:31 Dose: 3 pack Chlorhexidine Gluconate (Chlorhexidine 2% Cloth) 3 pack TOPICAL DAILY@0400 PRN PRN Reason: Extra cloth needed Stop: 10/09/17 03:59 Chlorhexidine Gluconate (Peridex 0.12% Oral Kit) 15 ml OROPHARYNG BID@0800, 2000 [facility] Last Admin: 10/05/17 20:41 Dose: 15 ml Dextrose (D50w Vial) 50 ml IV.PUSH UNSCH PRN PRN Reason: PER HYPOGLYCEMIA PROTOCOL Fentanyl Citrate (Fentanyl Inj) 50 mcg IV.PUSH Q4H PRN PRN Reason: PAIN 1-10 Flumazenil (Romazecon Inj) 0.2 mg IV.PUSH Q1M PRN PRN Reason: OVERSEDATION Glucagon (Glucagon Inj) 1 mg OTHER PRN PRN PRN Reason: for Hypoglycemia Protocol Haloperidol Lactate (Haldol Inj) 1 mg IV.PUSH Q15M PRN PRN Reason: for severe agitation Pantoprazole Sodium 80 mg/ (Sodium Chloride) 100 mls @ 10 mls/hr IV.CONT CONT [facility] Last Infusion: 10/06/17 08:20 Dose: 10 mls/hr Octreotide Acetate 500 mcg/ (Sodium Chloride) 500.5 mls @ 50.05 mls/hr IV.CONT .Q10H [facility] Last Infusion: 10/06/17 08:20 Dose: 49.95 mcg/hr, 50 mls/hr Magnesium Sulfate Inj 4 gm/ (Sodium Chloride) 100 mls @ 50 mls/hr IV.SIG UNSCH PRN PRN Reason: For Magnesium 0.9 - 1.1 mg/dL Magnesium Sulfate Inj 2 gm/ (Sodium Chloride) 100 mls @ 50 mls/hr IV.SIG UNSCH PRN PRN Reason: For Magnesium 1.2 - 1.6 mg/dL Potassium Chloride (Kcl 40 Meq Premix Inj) 40 meq in 100 mls @ 25 mls/hr IV.SIG Q2H PRN PRN Reason: For Potassium 2.8 - 3.2 mEq/L Potassium Chloride (Kcl 20 Meq Premix Inj) 20 meq in 100 mls @ 50 mls/hr IV.SIG Q2H PRN PRN Reason: For Potassium 3.3 - 3.5 mEq/L Potassium Chloride (Kcl 40 Meq Premix Inj) 40 meq in 100 mls @ 25 mls/hr IV.SIG UNSCH PRN PRN Reason: For Potassium 3.3 - 3.5 mEq/L Last Infusion: 10/05/17 20:45 Dose: Infused Potassium Chloride (Kcl 20 Meq Premix Inj) 20 meq in 100 mls @ 50 mls/hr IV.SIG Q2H PRN PRN Reason: For Potassium 2.8 - 3.2 mEq/L Potassium Phosphate 30 mmol/ (Sodium Chloride) 260 mls @ 42 mls/hr IV.SIG UNSCH PRN PRN Reason: SEE LABEL COMMENTS Sodium Phosphate 30 mmol/ (Sodium Chloride) 260 mls @ 42 mls/hr IV.SIG UNSCH PRN PRN Reason: For Phosphorus < 2.5 mg/dL Ceftriaxone Sodium 1,000 mg/ (Sodium Chloride) 100 mls @ 200 mls/hr IV.SIG Q24H [facility] Last Infusion: 10/05/17 21:15 Dose: Infused Propofol (Diprivan 1000 Mg/100 Ml Inj) 1,000 mg in 100 mls @ 2.034 mls/hr IV.CONT TITRATE PRN; Protocol PRN Reason: Per Protocol Last Titration: 10/06/17 08:20 Dose: 10 mcg/kg/min, 4.07 mls/hr Phenylephrine HCl 160 mg/ (Sodium Chloride) 500 mls @ 7.5 mls/hr IV.CONT TITRATE PRN; Protocol PRN Reason: See Protocol Insulin Aspart (Novolog Insulin Correctional Sugar Inj) 0 unit SQ Q6HR [place]; Protocol Last Admin: 10/06/17 06:05 Dose: Not Given Lactulose (Lactulose Liq) 30 ml PO DAILY PRN PRN Reason: SEVERE CONSITIPATION Lactulose (Lactulose Liq) 30 ml PO BID [facility] Last Admin: 10/06/17 08:18 Dose: Not Given Lorazepam (Ativan) 1 mg PO Q4H PRN PRN Reason: for CIWA 8-10 Lorazepam (Ativan) 2 mg PO Q2H PRN PRN Reason: for CIWA 11-14 Lorazepam (Ativan Inj) 2 mg IV.PUSH Q1H PRN PRN Reason: for CIWA 15-20 Lorazepam (Ativan Inj) 2 mg IV.PUSH Q15M PRN PRN Reason: for CIWA > 20 Lorazepam (Ativan Inj) 1 mg IV.PUSH Q4H PRN PRN Reason: for CIWA 8-10 Lorazepam (Ativan Inj) 2 mg IV.PUSH Q2H PRN PRN Reason: for CIWA 11-14 Magnesium Oxide (Mag-Ox) 800 mg PO UNSCH PRN PRN Reason: For Magnesium 1.2 - 1.6 mg/dL Potassium Bicarb/Potassium Chloride (K-Lyte Cl Eff) 50 meq PO UNSCH PRN PRN Reason: For Potassium 3.3 - 3.5 mEq/L Potassium Phosphate (K-Phos Original) 2,000 mg PO Q4H PRN PRN Reason: Phosphorus Less Than 2.5 mg/dL Potassium Phosphate (K-Phos Original) 2,000 mg PO UNSCH PRN PRN Reason: SEE LABEL COMMENTS Rifaximin (Xifaxan) 550 mg PO Q12HR [facility] Last Admin: 10/06/17 08:18 Dose: Not Given Senna/Docusate Sodium (Shira-Colace) 1 tab PO BID [facility] Last Admin: 10/06/17 08:18 Dose: Not Given Sennosides (Senokot) 17.2 mg PO Q12H PRN PRN Reason: Moderate Constipation Sodium Chloride (Ns Flush) 2 ml IV.FLUSH BID [facility] Last Admin: 10/05/17 20:41 Dose: 2 ml Sodium Chloride (Ns Flush) 2 ml IV.FLUSH PRN PRN PRN Reason: FLUSH AFTER USING IV ACCESS Sodium Chloride (Ns Flush) 0 ml IV.FLUSH DAILY [facility] Last Admin: 10/05/17 08:18 Dose: 10 ml Thiamine HCl (Vitamin B1) 100 mg PO DAILY [facility] Last Admin: 10/06/17 08:18 Dose: Not Given Allergies Allergy/AdvReac Type Severity Reaction Status Date / Time No Known Allergies Allergy Verified 10/03/17 17:38 Home Medications Medication Instructions Recorded Confirmed Type No Known Home Medications 10/03/17 10/03/17 History Advance Directives Healthcare Surrogate: Yes (Mother stated that patient has HCS) Health Care Surrogate Name and Number: Karina Zelaya [phone] Family/friends goals: Aggressive goals - Alternate code Ethical and Legal Issues: None identified at this time Physical Exam Vital Signs: Vital Signs - 24 hr 10/05/17 10:00 10/05/17 11:00 10/05/17 11:48 Temperature Pulse Rate 104 H 98 H Respiratory Rate 20 20 Blood Pressure Pulse Oximetry 94 L 10/05/17 12:00 10/05/17 14:00 10/05/17 16:00 Temperature 99 F 99.1 F Pulse Rate 103 H 97 H 98 H Respiratory Rate 24 19 Blood Pressure 100/58 L 107/61 Pulse Oximetry 94 L 92 L 10/05/17 16:09 10/05/17 16:12 10/05/17 18:00 Temperature Pulse Rate 98 H 95 H Respiratory Rate 18 19 Blood Pressure Pulse Oximetry 90 L 10/05/17 20:00 10/05/17 21:23 10/05/17 22:00 Temperature 98.3 F Pulse Rate 105 H 94 H 94 H Respiratory Rate 16 16 Blood Pressure 96/51 L Pulse Oximetry 93 L 95 10/06/17 00:00 10/06/17 00:36 10/06/17 02:00 Temperature 98.4 F Pulse Rate 97 H 97 H 105 H Respiratory Rate 17 16 Blood Pressure 91/55 L Pulse Oximetry 96 10/06/17 04:00 10/06/17 04:17 10/06/17 06:00 Temperature 98.6 F Pulse Rate 101 H 101 H 98 H Respiratory Rate 29 H 26 H Blood Pressure 99/55 L Pulse Oximetry 92 L 95 10/06/17 08:00 Temperature Pulse Rate 103 H Respiratory Rate 26 H Blood Pressure Pulse Oximetry 91 L I&O: Intake & Output 10/04/17 10/05/17 10/06/17 10/07/17 06:59 06:59 06:59 06:59 Intake Total 6734.7 / 6734.7 6648.2 / 6648.2 5686.2 / 5686.2 438.6 / 438.6 Output Total 600 / 600 400 / 400 975 / 975 Balance 6134.7 / 6134.7 6248.2 / 6248.2 4711.2 / 4711.2 438.6 / 438.6 Weight 67.8 kg 74 kg Physical Exam: CONSTITUTIONAL/GENERAL: This is an adequately nourished patient, in no apparent distress. TUBES/LINES/DRAINS: Right IJ single lumen catheter, PIV, ETT, OG tube, Gold catheter, SCD SKIN: No rashes, or lesions. Slightly jaundiced. Ecchymoses on upper extremities. No wounds seen anteriorly. Skin temperature appropriate. Not diaphoretic. HEAD: Atraumatic. Normocephalic. EYES: Pupils equal and round and reactive. Extraocular motions intact. Slightly scleral icterus, and scleral edema. No injection or drainage. Fundi not examined. ENT: Hearing grossly normal. Nose without bleeding or purulent drainage. ETT in place. Moist oral mucosa NECK: Trachea midline. Supple, nontender. CARDIOVASCULAR: Regular rate and rhythm without murmurs, gallops, or rubs. No JVD. Peripheral pulses symmetric. RESPIRATORY/CHEST: Symmetric, unlabored respirations. Rhonchi to auscultation. No wheezing. GASTROINTESTINAL: Abdomen soft, non-tender, nondistended. Hypoactive bowel sounds. OGT to LIWS GENITOURINARY: Without palpable bladder distension. Gold catheter in place. MUSCULOSKELETAL: Extremities without clubbing, cyanosis, or edema. No joint tenderness or effusion noted. No calf tenderness. No mottling or clubbing. NEUROLOGICAL: Intubated, sedated. Withdraws with all 4 extremities. PSYCHIATRIC: Unable to assess. Patient intubated, slightly sedated and calm. Diagnostic Tests Laboratory: Laboratory Results - last 72 hr 10/03/17 10/03/17 10/03/17 06:30 18:30 18:30 WBC 12.8 H RBC 1.33 L Hgb 4.7 L* POC Hgb (Calc) Hct 14.6 L* POC Hct MCV 109.6 H MCH 35.0 H MCHC 31.9 L RDW 18.4 H Plt Count 94 L MPV 7.9 Prelim Diff (Auto) Slide review pending Neut % (Auto) 84.0 H Lymph % (Auto) 9.2 [place] % (Auto) 5.4 Eos % (Auto) 0.6 Baso % (Auto) 0.8 Neut # (Auto) 10.8 H Lymph # (Auto) 1.2 [place] # (Auto) 0.7 Eos # (Auto) 0.1 Baso # (Auto) 0.1 WBC Differential . Diff Scan Auto diff confirmed Seg Neuts % (Manual) Band Neuts % (Manual) Lymphocytes % (Manual) Monocytes % (Manual) Metamyelocytes % (Man) Abs Neuts (Manual) Nucleated RBCs/100 WBC Differential Comment . Platelet Estimate Platelet Morphology Polychromasia Ovalocytes PT INR APTT Fibrinogen POC Sodium Sodium 146 H POC Potassium Potassium 4.9 POC Chloride Chloride 115 H Carbon Dioxide 18.9 L Anion Gap 12 POC BUN BUN 38 H Creatinine 0.85 POC Creatinine Estimated GFR 70 L POC Glucose Random Glucose 104 Lactic Acid Calcium 6.9 L* Prot Corrected Calcium 8.9 Phosphorus Magnesium 1.6 Total Bilirubin 3.9 H Direct Bilirubin Indirect Bilirubin AST 37 ALT 15 Alkaline Phosphatase 227 H Ammonia Total Creatine Kinase CK-MB (CK-2) CK-MB (CK-2) % Troponin I Total Protein 3.6 L Albumin 1.2 L Prealbumin Lipase 404 H TSH Nasal Screen MRSA (PCR) Urine Opiates Screen Ur Barbiturates Screen Ur Amphetamines Screen U Benzodiazepines Scrn Urine Cocaine Screen U Cannabinoids Screen Serum Alcohol Less than 3 Hepatitis A IgM Ab Nonreactive Hep Bs Antigen Nonreactive Hep B Core IgM Ab Nonreactive Hep C IgG Ab Nonreactive Blood Type Antibody Screen Ab Screen Tube Method Crossmatch MTS Gel Crossmatch Blood Bank Comment 10/03/17 10/03/17 10/03/17 18:30 18:30 18:30 WBC RBC Hgb POC Hgb (Calc) Hct POC Hct Less than 15.0 L* MCV MCH MCHC RDW Plt Count MPV Prelim Diff (Auto) Neut % (Auto) Lymph % (Auto) [place] % (Auto) Eos % (Auto) Baso % (Auto) Neut # (Auto) Lymph # (Auto) [place] # (Auto) Eos # (Auto) Baso # (Auto) WBC Differential Diff Scan Seg Neuts % (Manual) Band Neuts % (Manual) Lymphocytes % (Manual) Monocytes % (Manual) Metamyelocytes % (Man) Abs Neuts (Manual) Nucleated RBCs/100 WBC Differential Comment Platelet Estimate Platelet Morphology Polychromasia Ovalocytes PT INR APTT Fibrinogen POC Sodium 144 Sodium POC Potassium 4.8 Potassium POC Chloride 112 H Chloride Carbon Dioxide Anion Gap POC BUN 35 H BUN Creatinine POC Creatinine 0.8 Estimated GFR POC Glucose 107 Random Glucose Lactic Acid Calcium Prot Corrected Calcium Phosphorus Magnesium Total Bilirubin Direct Bilirubin Indirect Bilirubin AST ALT Alkaline Phosphatase Ammonia Total Creatine Kinase CK-MB (CK-2) CK-MB (CK-2) % Troponin I Total Protein Albumin Prealbumin Lipase TSH Nasal Screen MRSA (PCR) Urine Opiates Screen Ur Barbiturates Screen Ur Amphetamines Screen U Benzodiazepines Scrn Urine Cocaine Screen U Cannabinoids Screen Serum Alcohol Hepatitis A IgM Ab Hep Bs Antigen Hep B Core IgM Ab Hep C IgG Ab Blood Type AB Negative Antibody Screen Positive Ab Screen Tube Method Negative Crossmatch See Detail MTS Gel Crossmatch See Detail Blood Bank Comment 10/03/17 10/03/17 10/03/17 18:45 18:53 19:11 WBC RBC Hgb POC Hgb (Calc) Hct POC Hct MCV MCH MCHC RDW Plt Count MPV Prelim Diff (Auto) Neut % (Auto) Lymph % (Auto) [place] % (Auto) Eos % (Auto) Baso % (Auto) Neut # (Auto) Lymph # (Auto) [place] # (Auto) Eos # (Auto) Baso # (Auto) WBC Differential Diff Scan Seg Neuts % (Manual) Band Neuts % (Manual) Lymphocytes % (Manual) Monocytes % (Manual) Metamyelocytes % (Man) Abs Neuts (Manual) Nucleated RBCs/100 WBC Differential Comment Platelet Estimate Platelet Morphology Polychromasia Ovalocytes PT INR APTT Fibrinogen POC Sodium Sodium POC Potassium Potassium POC Chloride Chloride Carbon Dioxide Anion Gap POC BUN BUN Creatinine POC Creatinine Estimated GFR POC Glucose Random Glucose Lactic Acid Calcium Prot Corrected Calcium Phosphorus Magnesium Total Bilirubin Direct Bilirubin Indirect Bilirubin AST ALT Alkaline Phosphatase Ammonia 67 H Total Creatine Kinase CK-MB (CK-2) CK-MB (CK-2) % Troponin I Total Protein Albumin Prealbumin Lipase TSH Nasal Screen MRSA (PCR) Urine Opiates Screen Ur Barbiturates Screen Ur Amphetamines Screen U Benzodiazepines Scrn Urine Cocaine Screen U Cannabinoids Screen Serum Alcohol Hepatitis A IgM Ab Hep Bs Antigen Hep B Core IgM Ab Hep C IgG Ab Blood Type Antibody Screen Ab Screen Tube Method Crossmatch See Detail MTS Gel Crossmatch See Detail Blood Bank Comment 10/03/17 10/03/17 10/03/17 20:20 20:20 20:45 WBC RBC Hgb POC Hgb (Calc) Hct POC Hct MCV MCH MCHC RDW Plt Count MPV Prelim Diff (Auto) Neut % (Auto) Lymph % (Auto) [place] % (Auto) Eos % (Auto) Baso % (Auto) Neut # (Auto) Lymph # (Auto) [place] # (Auto) Eos # (Auto) Baso # (Auto) WBC Differential Diff Scan Seg Neuts % (Manual) Band Neuts % (Manual) Lymphocytes % (Manual) Monocytes % (Manual) Metamyelocytes % (Man) Abs Neuts (Manual) Nucleated RBCs/100 WBC Differential Comment Platelet Estimate Platelet Morphology Polychromasia Ovalocytes PT 37.8 H INR 3.8 APTT 64.0 H Fibrinogen Less than 50 L* Cancelled POC Sodium Sodium POC Potassium Potassium POC Chloride Chloride Carbon Dioxide Anion Gap POC BUN BUN Creatinine POC Creatinine Estimated GFR POC Glucose Random Glucose Lactic Acid Calcium Prot Corrected Calcium Phosphorus Magnesium Total Bilirubin Direct Bilirubin Indirect Bilirubin AST ALT Alkaline Phosphatase Ammonia Total Creatine Kinase CK-MB (CK-2) CK-MB (CK-2) % Troponin I Total Protein Albumin Prealbumin Lipase TSH Nasal Screen MRSA (PCR) Mrsa detected Urine Opiates Screen Ur Barbiturates Screen Ur Amphetamines Screen U Benzodiazepines Scrn Urine Cocaine Screen U Cannabinoids Screen Serum Alcohol Hepatitis A IgM Ab Hep Bs Antigen Hep B Core IgM Ab Hep C IgG Ab Blood Type Antibody Screen Ab Screen Tube Method Crossmatch MTS Gel Crossmatch Blood Bank Comment 10/03/17 10/04/17 10/04/17 21:24 01:18 03:20 WBC 16.1 H RBC 3.13 L Hgb 8.8 L D POC Hgb (Calc) Hct 26.1 L POC Hct MCV 83.4 D MCH 28.3 MCHC 33.9 RDW 22.6 H D Plt Count 53 L D MPV 8.2 Prelim Diff (Auto) Slide review pending Neut % (Auto) 81.4 H Lymph % (Auto) 7.8 L [place] % (Auto) 10.0 H Eos % (Auto) 0.2 Baso % (Auto) 0.6 Neut # (Auto) 13.1 H Lymph # (Auto) 1.3 [place] # (Auto) 1.6 H Eos # (Auto) 0.0 Baso # (Auto) 0.1 WBC Differential . Diff Scan Auto diff confirmed Seg Neuts % (Manual) Band Neuts % (Manual) Lymphocytes % (Manual) Monocytes % (Manual) Metamyelocytes % (Man) Abs Neuts (Manual) Nucleated RBCs/100 WBC Differential Comment . Platelet Estimate Low L Platelet Morphology Normal Polychromasia Ovalocytes PT INR APTT Fibrinogen POC Sodium Sodium POC Potassium Potassium POC Chloride Chloride Carbon Dioxide Anion Gap POC BUN BUN Creatinine POC Creatinine Estimated GFR POC Glucose 123 H Random Glucose Lactic Acid Calcium Prot Corrected Calcium Phosphorus Magnesium Total Bilirubin Direct Bilirubin Indirect Bilirubin AST ALT Alkaline Phosphatase Ammonia Total Creatine Kinase CK-MB (CK-2) CK-MB (CK-2) % Troponin I Total Protein Albumin Prealbumin Lipase TSH Nasal Screen MRSA (PCR) Urine Opiates Screen Ur Barbiturates Screen Ur Amphetamines Screen U Benzodiazepines Scrn Urine Cocaine Screen U Cannabinoids Screen Serum Alcohol Hepatitis A IgM Ab Hep Bs Antigen Hep B Core IgM Ab Hep C IgG Ab Blood Type Antibody Screen Ab Screen Tube Method Crossmatch MTS Gel Crossmatch Blood Bank Comment 10/04/17 10/04/17 10/04/17 03:20 03:20 03:20 WBC RBC Hgb POC Hgb (Calc) Hct POC Hct MCV MCH MCHC RDW Plt Count MPV Prelim Diff (Auto) Neut % (Auto) Lymph % (Auto) [place] % (Auto) Eos % (Auto) Baso % (Auto) Neut # (Auto) Lymph # (Auto) [place] # (Auto) Eos # (Auto) Baso # (Auto) WBC Differential Diff Scan Seg Neuts % (Manual) Band Neuts % (Manual) Lymphocytes % (Manual) Monocytes % (Manual) Metamyelocytes % (Man) Abs Neuts (Manual) Nucleated RBCs/100 WBC Differential Comment Platelet Estimate Platelet Morphology Polychromasia Ovalocytes PT 17.0 H D INR 1.7 APTT 35.7 H D Fibrinogen POC Sodium Sodium 153 H POC Potassium Potassium 4.4 POC Chloride Chloride 121 H Carbon Dioxide 17.1 L Anion Gap 15 POC BUN BUN 37 H Creatinine 0.97 POC Creatinine Estimated GFR 60 L POC Glucose Random Glucose 132 H Lactic Acid 9.8 H* Calcium 6.7 L* Prot Corrected Calcium 8.4 L Phosphorus 4.8 Magnesium Total Bilirubin 6.5 H Direct Bilirubin Indirect Bilirubin AST 57 H ALT 22 Alkaline Phosphatase 128 H Ammonia Total Creatine Kinase CK-MB (CK-2) CK-MB (CK-2) % Troponin I Total Protein 4.0 L Albumin 2.2 L D Prealbumin 9 L Lipase TSH Nasal Screen MRSA (PCR) Urine Opiates Screen Ur Barbiturates Screen Ur Amphetamines Screen U Benzodiazepines Scrn Urine Cocaine Screen U Cannabinoids Screen Serum Alcohol Hepatitis A IgM Ab Hep Bs Antigen Hep B Core IgM Ab Hep C IgG Ab Blood Type Antibody Screen Ab Screen Tube Method Crossmatch Quantivo Gel Crossmatch Blood Bank Comment 10/04/17 10/04/17 10/04/17 03:20 06:30 06:30 WBC RBC Hgb POC Hgb (Calc) Hct POC Hct MCV MCH MCHC RDW Plt Count MPV Prelim Diff (Auto) Neut % (Auto) Lymph % (Auto) [place] % (Auto) Eos % (Auto) Baso % (Auto) Neut # (Auto) Lymph # (Auto) [place] # (Auto) Eos # (Auto) Baso # (Auto) WBC Differential Diff Scan Seg Neuts % (Manual) Band Neuts % (Manual) Lymphocytes % (Manual) Monocytes % (Manual) Metamyelocytes % (Man) Abs Neuts (Manual) Nucleated RBCs/100 WBC Differential Comment Platelet Estimate Platelet Morphology Polychromasia Ovalocytes PT INR APTT Fibrinogen 150 L POC Sodium Sodium POC Potassium Potassium POC Chloride Chloride Carbon Dioxide Anion Gap POC BUN BUN Creatinine POC Creatinine Estimated GFR POC Glucose Random Glucose Lactic Acid Calcium Prot Corrected Calcium Phosphorus Magnesium 1.4 L Total Bilirubin 7.6 H Direct Bilirubin 2.5 H Indirect Bilirubin 5.1 H AST ALT Alkaline Phosphatase Ammonia Total Creatine Kinase 340 H CK-MB (CK-2) 10.3 H CK-MB (CK-2) % 3.0 Troponin I 0.30 H Total Protein Albumin Prealbumin Lipase TSH 0.535 Nasal Screen MRSA (PCR) Urine Opiates Screen Ur Barbiturates Screen Ur Amphetamines Screen U Benzodiazepines Scrn Urine Cocaine Screen U Cannabinoids Screen Serum Alcohol Hepatitis A IgM Ab Hep Bs Antigen Hep B Core IgM Ab Hep C IgG Ab Blood Type Antibody Screen Ab Screen Tube Method Crossmatch Quantivo Gel Crossmatch Blood Bank Comment 10/04/17 10/04/17 10/04/17 06:30 07:45 12:20 WBC RBC Hgb POC Hgb (Calc) Hct POC Hct MCV MCH MCHC RDW Plt Count MPV Prelim Diff (Auto) Neut % (Auto) Lymph % (Auto) [place] % (Auto) Eos % (Auto) Baso % (Auto) Neut # (Auto) Lymph # (Auto) [place] # (Auto) Eos # (Auto) Baso # (Auto) WBC Differential Diff Scan Seg Neuts % (Manual) Band Neuts % (Manual) Lymphocytes % (Manual) Monocytes % (Manual) Metamyelocytes % (Man) Abs Neuts (Manual) Nucleated RBCs/100 WBC Differential Comment Platelet Estimate Platelet Morphology Polychromasia Ovalocytes PT INR APTT Fibrinogen POC Sodium Sodium POC Potassium Potassium POC Chloride Chloride Carbon Dioxide Anion Gap POC BUN BUN Creatinine POC Creatinine Estimated GFR POC Glucose 144 H Random Glucose Lactic Acid Calcium Prot Corrected Calcium Phosphorus Magnesium Total Bilirubin Direct Bilirubin Indirect Bilirubin AST ALT Alkaline Phosphatase Ammonia 83 H Total Creatine Kinase CK-MB (CK-2) CK-MB (CK-2) % Troponin I Total Protein Albumin Prealbumin Lipase TSH Nasal Screen MRSA (PCR) Urine Opiates Screen Ur Barbiturates Screen Ur Amphetamines Screen U Benzodiazepines Scrn Urine Cocaine Screen U Cannabinoids Screen Serum Alcohol Hepatitis A IgM Ab Hep Bs Antigen Hep B Core IgM Ab Hep C IgG Ab Blood Type Antibody Screen Ab Screen Tube Method Crossmatch MTS Gel Crossmatch Blood Bank Comment 10/04/17 10/04/17 10/04/17 12:22 17:04 17:42 WBC RBC Hgb 5.3 L* D 8.5 L D POC Hgb (Calc) Hct 15.1 L* 23.7 L POC Hct MCV MCH MCHC RDW Plt Count MPV Prelim Diff (Auto) Neut % (Auto) Lymph % (Auto) [place] % (Auto) Eos % (Auto) Baso % (Auto) Neut # (Auto) Lymph # (Auto) [place] # (Auto) Eos # (Auto) Baso # (Auto) WBC Differential Diff Scan Seg Neuts % (Manual) Band Neuts % (Manual) Lymphocytes % (Manual) Monocytes % (Manual) Metamyelocytes % (Man) Abs Neuts (Manual) Nucleated RBCs/100 WBC Differential Comment Platelet Estimate Platelet Morphology Polychromasia Ovalocytes PT INR APTT Fibrinogen POC Sodium Sodium POC Potassium Potassium POC Chloride Chloride Carbon Dioxide Anion Gap POC BUN BUN Creatinine POC Creatinine Estimated GFR POC Glucose 123 H Random Glucose Lactic Acid Calcium Prot Corrected Calcium Phosphorus Magnesium Total Bilirubin Direct Bilirubin Indirect Bilirubin AST ALT Alkaline Phosphatase Ammonia Total Creatine Kinase CK-MB (CK-2) CK-MB (CK-2) % Troponin I Total Protein Albumin Prealbumin Lipase TSH Nasal Screen MRSA (PCR) Urine Opiates Screen Ur Barbiturates Screen Ur Amphetamines Screen U Benzodiazepines Scrn Urine Cocaine Screen U Cannabinoids Screen Serum Alcohol Hepatitis A IgM Ab Hep Bs Antigen Hep B Core IgM Ab Hep C IgG Ab Blood Type Antibody Screen Ab Screen Tube Method Crossmatch Quantivo Gel Crossmatch Blood Bank Comment 10/04/17 10/04/17 10/05/17 23:25 23:48 04:47 WBC RBC Hgb 8.2 L 8.8 L POC Hgb (Calc) Hct 23.0 L 23.7 L POC Hct MCV MCH MCHC RDW Plt Count MPV Prelim Diff (Auto) Neut % (Auto) Lymph % (Auto) [place] % (Auto) Eos % (Auto) Baso % (Auto) Neut # (Auto) Lymph # (Auto) [place] # (Auto) Eos # (Auto) Baso # (Auto) WBC Differential Diff Scan Seg Neuts % (Manual) Band Neuts % (Manual) Lymphocytes % (Manual) Monocytes % (Manual) Metamyelocytes % (Man) Abs Neuts (Manual) Nucleated RBCs/100 WBC Differential Comment Platelet Estimate Platelet Morphology Polychromasia Ovalocytes PT INR APTT Fibrinogen POC Sodium Sodium POC Potassium Potassium POC Chloride Chloride Carbon Dioxide Anion Gap POC BUN BUN Creatinine POC Creatinine Estimated GFR POC Glucose 106 Random Glucose Lactic Acid Calcium Prot Corrected Calcium Phosphorus Magnesium Total Bilirubin Direct Bilirubin Indirect Bilirubin AST ALT Alkaline Phosphatase Ammonia Total Creatine Kinase CK-MB (CK-2) CK-MB (CK-2) % Troponin I Total Protein Albumin Prealbumin Lipase TSH Nasal Screen MRSA (PCR) Urine Opiates Screen Ur Barbiturates Screen Ur Amphetamines Screen U Benzodiazepines Scrn Urine Cocaine Screen U Cannabinoids Screen Serum Alcohol Hepatitis A IgM Ab Hep Bs Antigen Hep B Core IgM Ab Hep C IgG Ab Blood Type Antibody Screen Ab Screen Tube Method Crossmatch MTS Gel Crossmatch Blood Bank Comment 10/05/17 10/05/17 10/05/17 04:47 06:13 09:44 WBC RBC Hgb POC Hgb (Calc) Hct POC Hct MCV MCH MCHC RDW Plt Count MPV Prelim Diff (Auto) Neut % (Auto) Lymph % (Auto) [place] % (Auto) Eos % (Auto) Baso % (Auto) Neut # (Auto) Lymph # (Auto) [place] # (Auto) Eos # (Auto) Baso # (Auto) WBC Differential Diff Scan Seg Neuts % (Manual) Band Neuts % (Manual) Lymphocytes % (Manual) Monocytes % (Manual) Metamyelocytes % (Man) Abs Neuts (Manual) Nucleated RBCs/100 WBC Differential Comment Platelet Estimate Platelet Morphology Polychromasia Ovalocytes PT 15.9 H INR 1.6 APTT 32.0 H Fibrinogen 151 L POC Sodium Sodium POC Potassium Potassium POC Chloride Chloride Carbon Dioxide Anion Gap POC BUN BUN Creatinine POC Creatinine Estimated GFR POC Glucose 110 Random Glucose Lactic Acid Calcium Prot Corrected Calcium Phosphorus Magnesium Total Bilirubin Direct Bilirubin Indirect Bilirubin AST ALT Alkaline Phosphatase Ammonia Total Creatine Kinase CK-MB (CK-2) CK-MB (CK-2) % Troponin I Total Protein Albumin Prealbumin Lipase TSH Nasal Screen MRSA (PCR) Urine Opiates Screen Neg Ur Barbiturates Screen Neg Ur Amphetamines Screen Neg U Benzodiazepines Scrn Pos H Urine Cocaine Screen Neg U Cannabinoids Screen Neg Serum Alcohol Hepatitis A IgM Ab Hep Bs Antigen Hep B Core IgM Ab Hep C IgG Ab Blood Type Antibody Screen Ab Screen Tube Method Crossmatch MTS Gel Crossmatch Blood Bank Comment 10/05/17 10/05/17 10/05/17 10:44 10:44 10:44 WBC RBC Hgb POC Hgb (Calc) Hct POC Hct MCV MCH MCHC RDW Plt Count MPV Prelim Diff (Auto) Neut % (Auto) Lymph % (Auto) [place] % (Auto) Eos % (Auto) Baso % (Auto) Neut # (Auto) Lymph # (Auto) [place] # (Auto) Eos # (Auto) Baso # (Auto) WBC Differential Diff Scan Seg Neuts % (Manual) Band Neuts % (Manual) Lymphocytes % (Manual) Monocytes % (Manual) Metamyelocytes % (Man) Abs Neuts (Manual) Nucleated RBCs/100 WBC Differential Comment Platelet Estimate Platelet Morphology Polychromasia Ovalocytes PT 16.6 H INR 1.6 APTT Fibrinogen POC Sodium Sodium POC Potassium Potassium POC Chloride Chloride Carbon Dioxide Anion Gap POC BUN BUN Creatinine POC Creatinine Estimated GFR POC Glucose Random Glucose Lactic Acid 2.9 H Calcium Prot Corrected Calcium Phosphorus 3.0 D Magnesium 1.6 Total Bilirubin Direct Bilirubin Indirect Bilirubin AST ALT Alkaline Phosphatase Ammonia Total Creatine Kinase CK-MB (CK-2) CK-MB (CK-2) % Troponin I 0.07 H D Total Protein Albumin Prealbumin Lipase TSH Nasal Screen MRSA (PCR) Urine Opiates Screen Ur Barbiturates Screen Ur Amphetamines Screen U Benzodiazepines Scrn Urine Cocaine Screen U Cannabinoids Screen Serum Alcohol Hepatitis A IgM Ab Hep Bs Antigen Hep B Core IgM Ab Hep C IgG Ab Blood Type Antibody Screen Ab Screen Tube Method Crossmatch MTS Gel Crossmatch Blood Bank Comment 10/05/17 10/05/17 10/05/17 10:44 10:44 12:00 WBC 13.6 H RBC 2.73 L Hgb 8.2 L POC Hgb (Calc) Hct 23.0 L POC Hct MCV 84.2 MCH 30.1 MCHC 35.7 RDW 18.3 H D Plt Count 45 L MPV 8.8 Prelim Diff (Auto) Slide review pending Neut % (Auto) 91.3 H Lymph % (Auto) 1.9 L [place] % (Auto) 5.9 Eos % (Auto) 0.6 Baso % (Auto) 0.3 Neut # (Auto) 12.4 H Lymph # (Auto) 0.3 L [place] # (Auto) 0.8 Eos # (Auto) 0.1 Baso # (Auto) 0.0 WBC Differential Manual diff final Diff Scan Seg Neuts % (Manual) 53 Band Neuts % (Manual) 41 H Lymphocytes % (Manual) 1 L Monocytes % (Manual) 1 Metamyelocytes % (Man) 4 H Abs Neuts (Manual) 13.3 H Nucleated RBCs/100 WBC 1 H Differential Comment . Platelet Estimate Low L Platelet Morphology Normal Polychromasia 2.4 H Ovalocytes PT INR APTT Fibrinogen POC Sodium Sodium 153 H POC Potassium Potassium 3.3 L D POC Chloride Chloride 122 H Carbon Dioxide 18.2 L Anion Gap 13 POC BUN BUN 54 H Creatinine 1.50 H POC Creatinine Estimated GFR 36 L POC Glucose 108 Random Glucose 109 H Lactic Acid Calcium 6.3 L* Prot Corrected Calcium 8.0 L Phosphorus Magnesium Total Bilirubin 7.4 H Direct Bilirubin Indirect Bilirubin AST 90 H ALT 32 Alkaline Phosphatase 104 Ammonia Total Creatine Kinase CK-MB (CK-2) CK-MB (CK-2) % Troponin I Total Protein 3.8 L Albumin 2.0 L Prealbumin Lipase TSH Nasal Screen MRSA (PCR) Urine Opiates Screen Ur Barbiturates Screen Ur Amphetamines Screen U Benzodiazepines Scrn Urine Cocaine Screen U Cannabinoids Screen Serum Alcohol Hepatitis A IgM Ab Hep Bs Antigen Hep B Core IgM Ab Hep C IgG Ab Blood Type Antibody Screen Ab Screen Tube Method Crossmatch Quantivo Gel Crossmatch Blood Bank Comment 10/05/17 10/05/17 10/05/17 17:43 18:30 18:30 WBC RBC Hgb 8.2 L POC Hgb (Calc) Hct 23.3 L POC Hct MCV MCH MCHC RDW Plt Count MPV Prelim Diff (Auto) Neut % (Auto) Lymph % (Auto) [place] % (Auto) Eos % (Auto) Baso % (Auto) Neut # (Auto) Lymph # (Auto) [place] # (Auto) Eos # (Auto) Baso # (Auto) WBC Differential Diff Scan Seg Neuts % (Manual) Band Neuts % (Manual) Lymphocytes % (Manual) Monocytes % (Manual) Metamyelocytes % (Man) Abs Neuts (Manual) Nucleated RBCs/100 WBC Differential Comment Platelet Estimate Platelet Morphology Polychromasia Ovalocytes PT INR APTT Fibrinogen POC Sodium Sodium POC Potassium Potassium POC Chloride Chloride Carbon Dioxide Anion Gap POC BUN BUN Creatinine POC Creatinine Estimated GFR POC Glucose 111 H Random Glucose Lactic Acid Calcium Prot Corrected Calcium Phosphorus Magnesium Total Bilirubin Direct Bilirubin Indirect Bilirubin AST ALT Alkaline Phosphatase Ammonia Total Creatine Kinase CK-MB (CK-2) CK-MB (CK-2) % Troponin I 0.05 Total Protein Albumin Prealbumin Lipase TSH Nasal Screen MRSA (PCR) Urine Opiates Screen Ur Barbiturates Screen Ur Amphetamines Screen U Benzodiazepines Scrn Urine Cocaine Screen U Cannabinoids Screen Serum Alcohol Hepatitis A IgM Ab Hep Bs Antigen Hep B Core IgM Ab Hep C IgG Ab Blood Type Antibody Screen Ab Screen Tube Method Crossmatch Quantivo Gel Crossmatch Blood Bank Comment 10/05/17 10/05/17 10/06/17 21:55 23:30 01:40 WBC RBC Hgb POC Hgb (Calc) Hct POC Hct MCV MCH MCHC RDW Plt Count MPV Prelim Diff (Auto) Neut % (Auto) Lymph % (Auto) [place] % (Auto) Eos % (Auto) Baso % (Auto) Neut # (Auto) Lymph # (Auto) [place] # (Auto) Eos # (Auto) Baso # (Auto) WBC Differential Diff Scan Seg Neuts % (Manual) Band Neuts % (Manual) Lymphocytes % (Manual) Monocytes % (Manual) Metamyelocytes % (Man) Abs Neuts (Manual) Nucleated RBCs/100 WBC Differential Comment Platelet Estimate Platelet Morphology Polychromasia Ovalocytes PT INR APTT Fibrinogen POC Sodium Sodium 151 H POC Potassium Potassium 4.2 D POC Chloride Chloride 122 H Carbon Dioxide 20.5 L Anion Gap 9 POC BUN BUN 63 H Creatinine 1.69 H POC Creatinine Estimated GFR 32 L POC Glucose 116 H Random Glucose 104 Lactic Acid Calcium 6.8 L* Prot Corrected Calcium 8.6 Phosphorus Magnesium Total Bilirubin 8.5 H Direct Bilirubin Indirect Bilirubin AST 93 H ALT 32 Alkaline Phosphatase 118 H Ammonia Total Creatine Kinase CK-MB (CK-2) CK-MB (CK-2) % Troponin I 0.05 Total Protein 3.9 L Albumin 1.9 L Prealbumin Lipase TSH Nasal Screen MRSA (PCR) Urine Opiates Screen Ur Barbiturates Screen Ur Amphetamines Screen U Benzodiazepines Scrn Urine Cocaine Screen U Cannabinoids Screen Serum Alcohol Hepatitis A IgM Ab Hep Bs Antigen Hep B Core IgM Ab Hep C IgG Ab Blood Type Antibody Screen Ab Screen Tube Method Crossmatch MTS Gel Crossmatch Blood Bank Comment 10/06/17 10/06/17 01:40 06:01 WBC 18.4 H RBC 2.83 L Hgb 8.2 L POC Hgb (Calc) Hct 24.3 L POC Hct MCV 85.9 MCH 29.1 MCHC 33.9 RDW 19.2 H Plt Count 58 L MPV 8.2 Prelim Diff (Auto) Slide review pending Neut % (Auto) 89.2 H Lymph % (Auto) 2.7 L [place] % (Auto) 7.2 Eos % (Auto) 0.5 Baso % (Auto) 0.4 Neut # (Auto) 16.4 H Lymph # (Auto) 0.5 L [place] # (Auto) 1.3 H Eos # (Auto) 0.1 Baso # (Auto) 0.1 WBC Differential . Diff Scan Auto diff confirmed Seg Neuts % (Manual) Band Neuts % (Manual) Lymphocytes % (Manual) Monocytes % (Manual) Metamyelocytes % (Man) Abs Neuts (Manual) Nucleated RBCs/100 WBC Differential Comment . Platelet Estimate Low L Platelet Morphology Normal Polychromasia Ovalocytes 1+ H PT INR APTT Fibrinogen POC Sodium Sodium POC Potassium Potassium POC Chloride Chloride Carbon Dioxide Anion Gap POC BUN BUN Creatinine POC Creatinine Estimated GFR POC Glucose 109 Random Glucose Lactic Acid Calcium Prot Corrected Calcium Phosphorus Magnesium Total Bilirubin Direct Bilirubin Indirect Bilirubin AST ALT Alkaline Phosphatase Ammonia Total Creatine Kinase CK-MB (CK-2) CK-MB (CK-2) % Troponin I Total Protein Albumin Prealbumin Lipase TSH Nasal Screen MRSA (PCR) Urine Opiates Screen Ur Barbiturates Screen Ur Amphetamines Screen U Benzodiazepines Scrn Urine Cocaine Screen U Cannabinoids Screen Serum Alcohol Hepatitis A IgM Ab Hep Bs Antigen Hep B Core IgM Ab Hep C IgG Ab Blood Type Antibody Screen Ab Screen Tube Method Crossmatch Quantivo Gel Crossmatch Blood Bank Comment Result Diagrams: 10/06/17 01:40 10/06/17 01:40 Imaging: Liver Ultrasound 10/04/17 00:00 CONCLUSION: 1. Cirrhotic liver with small amount of ascites and reversal of flow in the portal vein. 2. Gallbladder wall thickening with cholelithiasis. These findings are commonly seen in the setting of cirrhosis and limit sonographic sensitivity for early acute cholecystitis. 3. Small bilateral pleural effusions. Chest X-Ray 10/06/17 05:00 CONCLUSION: ET tube in high position at the thoracic inlet. Diffuse areas of consolidation or atelectasis which appear worse. Procedures: 10/03/17-right IJ single-lumen central line placement 10/04/17-endotracheal intubation Patient/Family Conference Present at Family Conference: Patient`s mother- Karina Zelaya [phone] Family Conference Location: Bedside, Consult Room Issues Discussed: * Palliative care role, purpose, approach * Additional medical, psychosocial, and spiritual history * Patients general health, functional status, and cognitive changes in the months leading up to the current hospitalization * Patient/family understanding of the current medical problems * Patient/family understanding of prognosis * Patients goals of care as best understood from advance directives and/or conversations and/or values * Current medical treatment options and benefits/burdens of those options * Likely scenarios comparing ongoing aggressive care with a transition to comfort measures only * Questions answered to the best of my ability * Palliative care contact information provided Assessment and Plan - Disease Oriented Problem List (1) Upper GI bleed (2) Cirrhosis (3) Anemia (4) Leukocytosis (5) Hyperammonemia - Symptom Scale (1) At risk for pain 0-10 Scale: Unable to quantify (Patient is at risk for pain from being intubated , procedure she has undergone and bedbound status) (2) Shortness of breath 0-10 Scale: Unable to quantify Comment: Patient came in with GI bleed with a low hemoglobin. Currently intubated with a high FiO2. Chest x-ray on 10/06 showing bilateral diffuse consolidation or atelectasis. Pertinent Non-Medical Issues: Psychosocial: Patient lives in [facility]. Patient has been for multiple years. She never had children. She has one sibling a brother Nicko Zelaya. 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 Spiritual:Patient is [employer] and mother has requested visit from . Legal:Patient`s mother stated that she is patient`s Health care surrogate. Ethical issues impacting care: None identified at this time Important Contacts: Mother-Karina Zelaya [phone] Currently at the [facility] [phone] Ext [phone] Brother-Nicko [phone] Prognosis: Ms. Allen is a 52 years old patient with a past medical history significant for cirrhosis secondary to EtOH abuse, hepatitis, GI bleed, anemia, colitis, tobacco use and history of blood transfusion. 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 Clinical course complicated with leukocytosis, hypotension,shortness of breath. Given multiple ongoing comorbidities, patient remains at high risk for further complications, deterioration and decline. Code Status: Alternative Code (No CPR, No shock) Plan: PLAN: Legal decision maker: Patient is currently intubated, sedated on mechanical ventilation and is not able to participate in decision-making. It is not known whether patient will be able to regain ability to participate in decision- making. Patient`s mother Nathalie Collins is patient`s health care proxy. Goals: Aggressive short of CPR, and Shock. Patien`s mother want to give patient a chance. She indicated she will not progress with tracheostomy and PEG tube placement if it meant that patient will have to reside in a fdc. Anticipatory guidance provided regarding compassionate withdrawal from life support if patient continues to deteriorate. Patient`s mother understands that patient is very critically ill but at this point is hopeful for the slightest chance patient has. She expressed that she would want the aggressive treatment to continue including pressor support and reintubation in the event of accidental extubation. In the event of a cardiac arrest she does not want CPR, Shock and ACLS drugs. CODE STATUS: Alternate Code, No CPR, No Shock,No ACLS drugs SYMPTOMS: * At risk for pain: Patient came in with a GI bleed. She has underwent EGD with ablation of a bleeding ulcer. Patient is intubated, sedated in bedbound status. Patient his fentanyl 50 mcg IVP every 4 hours prn. Currently not showing signs of pain. Continue to monitor for pain. * Shortness of breath: Patient has history of GI bleed, tobacco use. She came in with GI bleed and low hemoglobin. Patient is currently intubated with an FiO2 of 85% and PEEP of 12 with O2 saturation in the mid 90s. Chest x-ray on showing worsening diffuse areas of consolidation or atelectasis. Patient is duo nebs ordered. * At risk for withdrawal: Patient is a history cirrhosis from EtOH abuse. Patient reported in ER that last alcohol consumption was 8 months ago. Patient is on CIWA protocol. Continue to monitor for withdrawal symptoms. Palliative care will continue to follow the patient during hospital course as condition evolves, to assist patient/decision-maker with understanding of their medical conditions, weighing benefits/burdens of treatment options, for clarification of goals of treatment. Additionally will assist with any symptoms of palliative concern. Appreciation Thank you for the opportunity to participate in the care of Mariely Allen. Attestation Attestation: To help prompt me to consider important information that might be impacting today's encounter and assessment, information from prior notes written by myself or my colleagues may have been "brought forward" into today's note. My signature on this note, however, is an attestation that I personally performed the exam, history, and/or decision-making noted today, and, unless otherwise indicated, the interactions with patient, family, and staff as well as the review of records all occurred today. I also attest that the listed assessment and stated plan reflect my best clinical judgment today based on the combination of historical information, prior notes, and today's exam/ interactions. When time spent is documented, it refers only to time spent today by the signer, or if indicated, combined time spent today by collaborating physician/nurse practitioner.
[2017-10-06] MEDS: Phenylephrine Inj 160 MG in Sodium Chlor 0.9% Inj 484 ML IV.CONT PRN (12:41)
--- NOTE | 2017-10-06 12:46 | P.PNCC ---
Subjective Subjective Remarks/Hospital Course: 10/03: This is a 52-year-old female. Date of admission 10/03/2017. Past medical history includes hepatitis, colitis, acute blood loss anemia and prior GI bleed. According to mother at bedside, patient has been having coffee- ground emesis and bleeding from her rectum since 3:00 this morning. She states she paid housekeeping $20 to clean up the amount of blood. Patient complains of abdominal pain that is dull, constant. Symptom onset was sudden, symptoms are moderate in nature. EMS stated the patient's blood pressure was in the 80s systolic when they arrived on scene. Patient received a liter of IV fluids in route to the hospital. Received an additional 3 L normal saline in ED. Hemoglobin was noted to be 4.7. Platelets are low at 94. Currently receiving 40 PRBCs and 2 FFP stat. Patient is placed on a pantoprazole drip 8 mg an hour after receiving 80 mg IV bolus and an octreotide drip at 50 mcg/h. Denied chest pain or shortness of breath. Currently hemodynamics stabilize. Patient is also to have an elevated ammonia level and elevated lipase with a low albumin and magnesium. 10/04: Evaluated this morning prior to EGD. Awake and alert. Titrate blood noted being suctioned out of NG tube. Received 4 units PRBCs, FFP and cryoprecipitate overnight. 10/05: Remains sedated, orally intubated on mechanical ventilation. Transfused 2 units PRBCs and 1 unit cryoprecipitate yesterday afternoon. Hemoglobin greater than 8 this morning. Had some bright red blood suctioned out of OG tube overnight about half a cupful per rotary driller prospecting RN. 10/06: Remains sedated, orally intubated on mechanical ventilation. Worsening respiratory status. On 75% FiO2 this morning. I increased the PEEP from +5-+ 12 this morning. Saline lock IV fluids Lasix 40 mg IV x1. Remains on [place]- Synephrine for hypotension. Objective Vital Signs / I&O: Vital Signs 10/05/17 14:00 10/05/17 16:00 10/05/17 16:09 Temperature 99.1 F Pulse Rate 97 H 98 H 98 H Respiratory Rate 19 18 Blood Pressure 107/61 Pulse Oximetry 92 L 10/05/17 16:12 10/05/17 18:00 10/05/17 20:00 Temperature 98.3 F Pulse Rate 95 H 105 H Respiratory Rate 19 16 Blood Pressure 96/51 L Pulse Oximetry 90 L 93 L 10/05/17 21:23 10/05/17 22:00 10/06/17 00:00 Temperature 98.4 F Pulse Rate 94 H 94 H 97 H Respiratory Rate 16 17 Blood Pressure 91/55 L Pulse Oximetry 95 96 10/06/17 00:36 10/06/17 02:00 10/06/17 04:00 Temperature 98.6 F Pulse Rate 97 H 105 H 101 H Respiratory Rate 16 29 H Blood Pressure 99/55 L Pulse Oximetry 92 L 10/06/17 04:17 10/06/17 04:30 10/06/17 04:45 Temperature Pulse Rate 101 H 101 H 97 H Respiratory Rate 26 H 29 H 24 Blood Pressure 99/55 L 93/54 L Pulse Oximetry 95 91 L 93 L 10/06/17 05:00 10/06/17 05:15 10/06/17 05:30 Temperature Pulse Rate 94 H 97 H 95 H Respiratory Rate 24 25 H 24 Blood Pressure 83/48 L 88/51 L 88/55 L Pulse Oximetry 92 L 94 L 91 L 10/06/17 05:45 10/06/17 06:00 10/06/17 06:15 Temperature Pulse Rate 98 H 98 H 95 H Respiratory Rate 26 H 28 H 23 Blood Pressure 93/53 L 96/53 L 88/50 L Pulse Oximetry 88 L 91 L 91 L 10/06/17 06:30 10/06/17 06:45 10/06/17 07:00 Temperature Pulse Rate 93 H 93 H 101 H Respiratory Rate 25 H 25 H 21 Blood Pressure 87/50 L 85/49 L 93/52 L Pulse Oximetry 92 L 91 L 92 L 10/06/17 07:15 10/06/17 07:30 10/06/17 07:45 Temperature Pulse Rate 98 H 99 H 94 H Respiratory Rate 27 H 18 21 Blood Pressure 94/54 L 100/56 L 91/51 L Pulse Oximetry 91 L 92 L 94 L 10/06/17 08:00 10/06/17 08:15 10/06/17 08:30 Temperature 98.6 F Pulse Rate 102 H 109 H 109 H Respiratory Rate 26 H 23 20 Blood Pressure 104/54 L 94/54 L 93/53 L Pulse Oximetry 89 L 89 L 89 L 08/16/18 08:45 10/06/17 09:00 10/06/17 09:15 Temperature Pulse Rate 114 H 109 H 105 H Respiratory Rate 15 22 21 Blood Pressure 94/53 L 93/50 L 88/52 L Pulse Oximetry 91 L 91 L 91 L 10/06/17 09:30 10/06/17 09:45 10/06/17 09:48 Temperature Pulse Rate 106 H 103 H 104 H Respiratory Rate 2 L 0 L 1 L Blood Pressure 88/53 L 81/46 L 84/51 L Pulse Oximetry 90 L 91 L 91 L 10/06/17 10:00 10/06/17 10:10 10/06/17 10:15 Temperature Pulse Rate 106 H 109 H Respiratory Rate 0 L 25 H 0 L Blood Pressure 88/54 L 98/57 L Pulse Oximetry 91 L 92 L 92 L 10/06/17 10:30 10/06/17 10:45 10/06/17 11:00 Temperature Pulse Rate 104 H 93 H 91 H Respiratory Rate 0 L 1 L 0 L Blood Pressure 97/55 L 96/51 L 94/50 L Pulse Oximetry 94 L 93 L 94 L 10/06/17 11:11 10/06/17 11:15 10/06/17 11:30 Temperature Pulse Rate 89 87 86 Respiratory Rate 18 0 L 0 L Blood Pressure 83/46 L 74/41 L Pulse Oximetry 94 L 94 L 10/06/17 11:43 10/06/17 11:45 10/06/17 12:00 Temperature 98.6 F Pulse Rate 87 90 92 H Respiratory Rate 0 L 0 L 0 L Blood Pressure 77/43 L 86/52 L 96/55 L Pulse Oximetry 94 L 95 95 10/06/17 12:15 Temperature Pulse Rate 90 Respiratory Rate 0 L Blood Pressure 90/54 L Pulse Oximetry 96 Intake & Output 10/05/17 10/06/17 10/06/17 18:59 06:59 18:59 Intake Total 3785.7 / 3785.7 1900.5 / 1900.5 566.6 / 566.6 Output Total 600 / 600 375 / 375 Balance 3185.7 / 3185.7 1525.5 / 1525.5 566.6 / 566.6 Intake: IV 3785.7 / 3785.7 1900.5 / 1900.5 566.6 / 566.6 Normosol-R Inj 1,000 ML @ 84 1000 / 1000 421 / 421 mls/hr IV.CONT .[id number] NIELS Rx# :[id number] SandoSTATIN Inj 500 MCG In NS 500.5 / 500.5 500.5 / 500.5 Inj 500 ML @ 50 MCG/HR 50.05 mls/hr IV.CONT .Q10H NIELS Rx#: [id number] Protonix Inj 80 MG In NS Inj 100 / 100 100 / 100 128 / 128 100 ML @ 10 mls/hr IV.CONT CONT NIELS Rx#:[id number] Diprivan 1000 mg/100 ml Inj 1, 100 / 100 100 / 100 17.6 / 17.6 000 mg In 100 ml @ 5 MCG/KG/MIN 2.034 mls/hr IV.CONT TITRATE PRN Rx#:[id number] NS Inj 1,000 ML @ 84 mls/hr IV. 1575 / 1575 CONT .[id number] NIELS Rx#:[id number] MVI-12 Inj 10 ML Folvite Inj 1 510.2 / 510.2 MG In NS Inj 500 ML @ 125 mls/ hr IV.SIG Q24H NIELS Rx#:[id number] MVI-12 Inj 10 ML Thiamine Inj 0 / 0 100 MG Folvite Inj 1 MG In NS Inj 500 ML @ 125 mls/hr IV.SIG Q24H NIELS Rx#:[id number] KCl 40 mEq Premix Inj 40 meq In 100 / 100 100 ml @ 25 mls/hr IV.SIG UNSCH PRN Rx#:[id number] NS Inj 1,000 ML @ Wide Open IV. 1000 / 1000 SIG BOLUS ONE Rx#:[id number] Rocephin Inj 1,000 MG In NS Inj 100 / 100 100 ML @ 200 mls/hr IV.SIG Q24H NIELS Rx#:[id number] Output: Urine Amount (Catheter) 600 / 600 250 / 250 Indwelling Urethral Catheter 600 / 600 250 / 250 Gastric Drainage 125 / 125 Right Nare Nasogastric Tube 125 / 125 Other: Date of Last Bowel Movement 10/05/17 10/05/17 # Incontinent Bowel Movements 1 Result Diagrams: 10/06/17 01:40 10/06/17 01:40 Imaging: Impressions Chest X-Ray 10/04/17 12:00 CONCLUSION: Support apparatus in good position. Bilateral mostly basilar airspace disease and effusions have increased since October 03 examination. Chest X-Ray 10/05/17 10:19 CONCLUSION: No significant interval change Chest X-Ray 10/06/17 05:00 CONCLUSION: ET tube in high position at the thoracic inlet. Diffuse areas of consolidation or atelectasis which appear worse. Objective Remarks: HEENT/ Neuro: Sedated, orally intubated, Pallor present, no icterus, tongue/ mucosa moist Neck: Right IJ Cordis in place Chest/Pulm: on mech vent, good air entry bilaterally, scattered rhonchi bilaterally, no wheezing or crackles CVS: S1-S2 regular, no murmur GI/abdomen: distended, nontender, bowel sounds sluggish Extremities: warm bilaterally, bilateral edema Assessment and Plan - Assessment and Plan Plan: Neuro/Psych: Acute encephalopathy secondary elevated ammonia Continue sedation while intubated. No sedation medication till improvement in respiratory status. Vitamin bag daily 3 dosages CIWA protocol ordered for alcohol withdrawal CV: Hypotension Significant positive fluid balance since admission with IV fluids as well as blood products. Saline lock IV fluids. On [place]-Synephrine for pressor support. Resp: Acute respiratory failure on mechanical ventilation TRALI Fluid overload ongoing tobaccoism Start Solu-Medrol 80 mg IV every 12 hourly after 125 mg IV 1. Albuterol/ipratropium aerosols every 4 hours with albuterol aerosols every 2 hours as needed for dyspnea PEEP increased to +12, titrate FiO2 to keep O2 sat greater than 90%. GI: Gastric ulcer Upper GI bleed History of cirrhosis History of colitis Hypoalbuminemia Hyper ammonia Elevated lipase Elevated total bilirubin Currently on pantoprazole drip at 8 mg an hour after receiving 80 mg bolus. Stopped octreotide drip on 10/06.. GI consultation. EGD 10/04 revealed large gastric ulcer in the antrum. Epinephrine injected at the base of ulcer with visible vessel. High risk for rebleeding per GI. : Gold catheterization Endo: Sliding scale insulin with Accu-Cheks to maintain euglycemia Renal: Strict intake output, monitor and replete electrolytes, follow BUN/creatinine. On IV fluids. Edema noted. Lasix 40 mg IV 1 dose on 10/06 Heme: Leukocytosis macrocytic anemia/acute blood loss anemia Thrombocytopenia s/p 4 PRBCs/2 FFP along with 10 mg vitamin K IV 1 on 10/03. 2 units PRBCs 1 unit cryoprecipitate transfused on 10/04. Follow serial CBC and coags ID: On ceftriaxone with upper GI bleed MSK: PT evaluate and treat FEN: Hypomagnesia Replace electrolytes per ICU electrolyte protocol Access -Right IJ cordis in place Prophylaxis -GI -pantoprazole drip - -DVT SCD/holding pharmacological prophylaxis light of acute hemorrhage Palliative care consult requested to assist with deciding goals of therapy as prognosis appears poor with worsening respiratory status. 35 minutes critical care time
[2017-10-06] MEDS: Pantoprazole Inj 40 MG Vial IV.PUSH SCH (16:03)
[2017-10-07] MEDS: Oral Hygiene Kit OROPHARYNG SCH ×4 (00:16→15:29)
[2017-10-07] MEDS: Pantoprazole Inj 40 MG Vial IV.PUSH SCH ×2 (00:16→14:17)
[2017-10-07] MEDS: Chlorhexidine Gluconate 2% 1 Pack (2 Cloths) TOPICAL SCH (04:23)
[2017-10-07] MEDS: fentaNYL 10 mcg/mL Premix Drip 2,500 MCG/250 ML BAG IV.SIG PRN (04:36)
[2017-10-07 04:46] LABS: Baso # (Auto) 0.2 th/mm3 (0.0-0.2); Baso % (Auto) 0.6 % (0.0-2.0); Eos # (Auto) 0.2 th/mm3 (0.0-0.4); Eos % (Auto) 0.6 % (0.0-4.0); Hematocrit 25.9 % (35.0-46.0); Hemoglobin 8.7 gm/dL (11.6-15.3); Lymph # (Auto) 0.9 th/mm3 (1.0-4.8); Lymph % (Auto) 3.5 % (9.0-44.0); Mean Corpuscular HGB Conc 33.4 % (32.0-36.0); Mean Corpuscular Hemoglobin 29.1 pg (27.0-34.0); Mean Corpuscular Volume 87.2 fL (80.0-100.0); Mean Platelet Volume 8.4 fL (7.0-11.0); Mono # (Auto) 2.6 th/mm3 (0.0-0.9); Mono % (Auto) 10.2 % (0.0-8.0); Neut # (Auto) 21.5 th/mm3 (1.8-7.7); Neut % (Auto) 85.1 % (16.0-70.0); Platelet Count 72 th/mm3 (150-450); Red Blood Count 2.97 mil/mm3 (4.00-5.30); Red Cell Distribution Width 19.8 % (11.6-17.2); White Blood Count 25.3 th/mm3 (4.0-11.0)
[2017-10-07 05:11] LABS: Albumin 1.9 g/dL (3.4-5.0); Calcium 7.3 mg/dL (8.5-10.1); Carbon Dioxide 18.9 meq/L (21.0-32.0); Potassium 4.2 meq/L (3.5-5.1); Total Protein 4.3 g/dL (6.4-8.2)
[2017-10-07] MEDS: Phenylephrine Inj 160 MG in Sodium Chlor 0.9% Inj 484 ML IV.CONT PRN (05:11)
[2017-10-07] MEDS: Insulin NovoLOG Aspart Correctional Sugar Inj SQ SCH ×3 (05:45→17:08)
[2017-10-07 08:04] LABS: Eosinophils 1 % (0-4); Lymphocytes 1 % (9-44); Monocytes 4 % (0-8); Platelet Morphology Normal (Normal); Tallied Nucleated RBC 2 (0-0)
[2017-10-07 08:08] LABS: Polychromasia 2.3 % (0.0-1.9); Toxic Vacuolation Present
[2017-10-07 08:09] LABS: Dohle Bodies Present; Toxic Granulation 1+
--- NOTE | 2017-10-07 08:21 | P.PNCC ---
Subjective Subjective Remarks/Hospital Course: 10/03: This is a 52-year-old female. Date of admission 10/03/2017. Past medical history includes hepatitis, colitis, acute blood loss anemia and prior GI bleed. According to mother at bedside, patient has been having coffee- ground emesis and bleeding from her rectum since 3:00 this morning. She states she paid housekeeping $20 to clean up the amount of blood. Patient complains of abdominal pain that is dull, constant. Symptom onset was sudden, symptoms are moderate in nature. EMS stated the patient's blood pressure was in the 80s systolic when they arrived on scene. Patient received a liter of IV fluids in route to the hospital. Received an additional 3 L normal saline in ED. Hemoglobin was noted to be 4.7. Platelets are low at 94. Currently receiving 40 PRBCs and 2 FFP stat. Patient is placed on a pantoprazole drip 8 mg an hour after receiving 80 mg IV bolus and an octreotide drip at 50 mcg/h. Denied chest pain or shortness of breath. Currently hemodynamics stabilize. Patient is also to have an elevated ammonia level and elevated lipase with a low albumin and magnesium. 10/04: Evaluated this morning prior to EGD. Awake and alert. Titrate blood noted being suctioned out of NG tube. Received 4 units PRBCs, FFP and cryoprecipitate overnight. 10/05: Remains sedated, orally intubated on mechanical ventilation. Transfused 2 units PRBCs and 1 unit cryoprecipitate yesterday afternoon. Hemoglobin greater than 8 this morning. Had some bright red blood suctioned out of OG tube overnight about half a cupful per night shift supervisor RN. 10/06: Remains sedated, orally intubated on mechanical ventilation. Worsening respiratory status. On 75% FiO2 this morning. I increased the PEEP from +5-+ 12 this morning. Saline lock IV fluids Lasix 40 mg IV x1. Remains on [place]- Synephrine for hypotension. 10/07: Remains severely hypoxemic critically ill. Currently FiO2 70% PEEP of 12. Remains on [place]-Synephrine at 220 mcg/min. Oliguric creatinine increased to 2.22. Inadequate response to IV push of Lasix. Increase PEEP to 14, start Bumex infusion, get nephrology consult. Broad-spectrum antibiotics with Zosyn and DC Rocephin Objective Vital Signs / I&O: Vital Signs 10/06/17 08:15 10/06/17 08:30 10/06/17 08:45 Temperature Pulse Rate 109 H 109 H 114 H Respiratory Rate 23 20 15 Blood Pressure 94/54 L 93/53 L 94/53 L Pulse Oximetry 89 L 89 L 91 L 10/06/17 09:00 10/06/17 09:15 10/06/17 09:30 Temperature Pulse Rate 109 H 105 H 106 H Respiratory Rate 22 21 2 L Blood Pressure 93/50 L 88/52 L 88/53 L Pulse Oximetry 91 L 91 L 90 L 10/06/17 09:45 10/06/17 09:48 10/06/17 10:00 Temperature Pulse Rate 103 H 104 H 106 H Respiratory Rate 0 L 1 L 0 L Blood Pressure 81/46 L 84/51 L 88/54 L Pulse Oximetry 91 L 91 L 91 L 10/06/17 10:10 10/06/17 10:15 10/06/17 10:30 Temperature Pulse Rate 109 H 104 H Respiratory Rate 25 H 0 L 0 L Blood Pressure 98/57 L 97/55 L Pulse Oximetry 92 L 92 L 94 L 10/06/17 10:45 10/06/17 11:00 10/06/17 11:11 Temperature Pulse Rate 93 H 91 H 89 Respiratory Rate 1 L 0 L 18 Blood Pressure 96/51 L 94/50 L Pulse Oximetry 93 L 94 L 10/06/17 11:15 10/06/17 11:30 10/06/17 11:43 Temperature Pulse Rate 87 86 87 Respiratory Rate 0 L 0 L 0 L Blood Pressure 83/46 L 74/41 L 77/43 L Pulse Oximetry 94 L 94 L 94 L 10/06/17 11:45 10/06/17 12:00 10/06/17 12:15 Temperature 98.6 F Pulse Rate 90 92 H 90 Respiratory Rate 0 L 0 L 0 L Blood Pressure 86/52 L 96/55 L 90/54 L Pulse Oximetry 95 95 96 10/06/17 12:30 10/06/17 12:45 10/06/17 13:00 Temperature Pulse Rate 92 H 89 90 Respiratory Rate 0 L 0 L 0 L Blood Pressure 103/57 L 82/45 L 81/47 L Pulse Oximetry 95 95 95 10/06/17 13:15 10/06/17 13:17 10/06/17 13:30 Temperature Pulse Rate 92 H 91 H Respiratory Rate 0 L 19 0 L Blood Pressure 94/53 L 92/54 L Pulse Oximetry 95 95 95 10/06/17 13:45 10/06/17 14:00 10/06/17 14:15 Temperature Pulse Rate 97 H 95 H 96 H Respiratory Rate 3 L 0 L 0 L Blood Pressure 92/54 L 97/56 L 91/54 L Pulse Oximetry 95 96 95 10/06/17 14:30 10/06/17 14:45 10/06/17 15:00 Temperature Pulse Rate 96 H 96 H 90 Respiratory Rate 5 L 3 L 0 L Blood Pressure 95/50 L 93/54 L 91/52 L Pulse Oximetry 95 95 96 10/06/17 15:14 10/06/17 15:15 10/06/17 15:30 Temperature Pulse Rate 88 89 88 Respiratory Rate 17 0 L 0 L Blood Pressure 90/54 L 86/49 L Pulse Oximetry 96 96 10/06/17 15:45 10/06/17 16:00 10/06/17 16:15 Temperature 99.1 F Pulse Rate 89 90 93 H Respiratory Rate 0 L 21 9 L Blood Pressure 90/52 L 87/52 L 91/54 L Pulse Oximetry 95 95 95 10/06/17 16:30 10/06/17 16:31 10/06/17 16:45 Temperature Pulse Rate 89 96 H 87 Respiratory Rate 18 8 L 19 Blood Pressure 78/51 L 91/51 L 84/50 L Pulse Oximetry 95 93 L 96 10/06/17 17:00 10/06/17 17:03 10/06/17 17:07 Temperature Pulse Rate 86 87 Respiratory Rate 19 18 0 L Blood Pressure 79/45 L 91/52 L Pulse Oximetry 96 95 95 10/06/17 17:15 10/06/17 17:30 10/06/17 17:45 Temperature Pulse Rate 89 86 90 Respiratory Rate 20 18 11 L Blood Pressure 89/53 L 85/50 L 93/54 L Pulse Oximetry 95 95 95 10/06/17 18:00 10/06/17 18:15 10/06/17 18:30 Temperature Pulse Rate 89 90 88 Respiratory Rate 10 L 16 17 Blood Pressure 92/55 L 95/52 L 92/51 L Pulse Oximetry 95 95 95 10/06/17 18:45 08/16/18 19:00 10/06/17 19:15 Temperature Pulse Rate 87 88 97 H Respiratory Rate 18 17 21 Blood Pressure 86/51 L 85/46 L 98/53 L Pulse Oximetry 95 95 95 10/06/17 19:26 10/06/17 19:30 10/06/17 19:45 Temperature Pulse Rate 97 H 96 H 99 H Respiratory Rate 20 3 L 13 Blood Pressure 92/53 L 92/54 L Pulse Oximetry 96 96 93 L 10/06/17 20:00 10/06/17 20:15 10/06/17 20:30 Temperature 98.9 F Pulse Rate 98 H 96 H 95 H Respiratory Rate 0 L 0 L 0 L Blood Pressure 87/48 L 89/52 L 90/52 L Pulse Oximetry 93 L 93 L 93 L 10/06/17 20:45 10/06/17 21:00 10/06/17 21:15 Temperature Pulse Rate 94 H 95 H 99 H Respiratory Rate 0 L 0 L 1 L Blood Pressure 86/51 L 87/51 L 88/53 L Pulse Oximetry 93 L 94 L 94 L 10/06/17 21:30 10/06/17 21:45 10/06/17 22:00 Temperature Pulse Rate 100 H 98 H 100 H Respiratory Rate 0 L 0 L 6 L Blood Pressure 91/53 L 94/50 L 92/55 L Pulse Oximetry 94 L 93 L 94 L 10/06/17 22:15 10/06/17 22:30 10/06/17 22:45 Temperature Pulse Rate 97 H 96 H 101 H Respiratory Rate 0 L 1 L 10 L Blood Pressure 91/55 L 90/52 L 100/50 L Pulse Oximetry 95 95 97 10/06/17 23:00 10/06/17 23:15 10/06/17 23:16 Temperature Pulse Rate 98 H 97 H 96 H Respiratory Rate 3 L 0 L 20 Blood Pressure 89/49 L 90/53 L Pulse Oximetry 95 95 95 10/06/17 23:30 10/06/17 23:45 10/07/17 00:00 Temperature 98.8 F Pulse Rate 99 H 97 H 100 H Respiratory Rate 3 L 1 L 11 L Blood Pressure 86/51 L 87/52 L 89/50 L Pulse Oximetry 95 94 L 94 L 10/07/17 00:15 10/07/17 00:30 08/17/18 00:45 Temperature Pulse Rate 99 H 97 H 99 H Respiratory Rate 4 L 1 L 15 Blood Pressure 89/54 L 88/53 L 84/47 L Pulse Oximetry 93 L 94 L 93 L 10/07/17 00:46 10/07/17 00:47 10/07/17 01:00 Temperature Pulse Rate 100 H 99 H 97 H Respiratory Rate 12 12 10 L Blood Pressure 83/48 L 84/50 L 88/53 L Pulse Oximetry 93 L 94 L 94 L 10/07/17 01:15 10/07/17 01:30 10/07/17 01:45 Temperature Pulse Rate 99 H 101 H 101 H Respiratory Rate 29 H 7 L 3 L Blood Pressure 104/61 95/55 L 97/53 L Pulse Oximetry 93 L 94 L 92 L 10/07/17 02:00 10/07/17 02:15 10/07/17 02:30 Temperature Pulse Rate 99 H 94 H 92 H Respiratory Rate 5 L 0 L 22 Blood Pressure 92/54 L 88/53 L 88/53 L Pulse Oximetry 93 L 94 L 94 L 10/07/17 02:45 10/07/17 02:46 10/07/17 02:48 Temperature Pulse Rate 90 90 90 Respiratory Rate 4 L 0 L 1 L Blood Pressure 84/45 L 84/46 L 85/47 L Pulse Oximetry 94 L 94 L 94 L 10/07/17 02:49 10/07/17 02:50 10/07/17 03:00 Temperature Pulse Rate 90 90 90 Respiratory Rate 0 L 0 L 0 L Blood Pressure 87/48 L 88/53 L 90/55 L Pulse Oximetry 94 L 94 L 94 L 10/07/17 03:15 10/07/17 03:24 10/07/17 03:30 Temperature Pulse Rate 94 H 91 H 97 H Respiratory Rate 16 20 5 L Blood Pressure 103/51 L 97/55 L Pulse Oximetry 93 L 94 L 93 L 10/07/17 03:45 10/07/17 04:00 10/07/17 04:15 Temperature 98.6 F Pulse Rate 98 H 93 H 93 H Respiratory Rate 4 L 0 L 15 Blood Pressure 98/51 L 95/51 L 89/54 L Pulse Oximetry 93 L 95 95 10/07/17 06:00 Temperature Pulse Rate 96 H Respiratory Rate Blood Pressure Pulse Oximetry Intake & Output 10/06/17 10/07/17 10/07/17 18:59 06:59 18:59 Intake Total 1104.6 / 1104.6 383.4 / 383.4 Output Total 645 / 645 225 / 225 Balance 459.6 / 459.6 158.4 / 158.4 Weight 78.8 kg Intake: IV 1104.6 / 1104.6 383.4 / 383.4 Normosol-R Inj 1,000 ML @ 84 421 / 421 mls/hr IV.CONT .[id number] NIELS Rx# :[id number] Protonix Inj 80 MG In NS Inj 128 / 128 100 ML @ 10 mls/hr IV.CONT CONT NIELS Rx#:[id number] Neosynephrine Inj 160 MG In D5W 339 / 339 Inj 484 ML @ 40 MCG/MIN 7.5 mls/hr IV.CONT TITRATE PRN Rx#: [id number] Neosynephrine Inj 160 MG In NS 151 / 151 349 / 349 Inj 484 ML @ 40 MCG/MIN 7.5 mls /hr IV.CONT TITRATE PRN Rx#: [id number] Diprivan 1000 mg/100 ml Inj 1, 65.6 / 65.6 34.4 / 34.4 000 mg In 100 ml @ 5 MCG/KG/MIN 2.034 mls/hr IV.CONT TITRATE PRN Rx#:[id number] Output: Urine 75 / 75 Emesis 150 / 150 Urine Amount (Catheter) 625 / 625 Indwelling Urethral Catheter 625 / 625 Gastric Drainage 20 / 20 Right Nare Nasogastric Tube 20 / 20 Other: # Bowel Movements 0 Result Diagrams: 10/07/17 04:25 10/07/17 04:25 Objective Remarks: GEN: Critically ill 52-year-old female who is on ventilator with high PEEP and high FiO2 HEENT: Pallor present, no icterus, tongue/ mucosa moist. Orotracheally intubated Neck: Right IJ Cordis in place Chest/Pulm: on mech vent, diminished air entry bilaterally, scattered rhonchi bilaterally, scattered crackles CVS: S1-S2 regular, no murmur. Currently on [place]-Synephrine at 220 mcg/min GI/abdomen: Distended, nontender, bowel sounds sluggish Extremities: Warm bilaterally, bilateral pedal edema Neuro: Intubated sedated. Moves extremities to stimulation. Did not open eyes or follow commands while on sedation Assessment and Plan - Assessment and Plan Plan: Neuro/Psych: Acute encephalopathy secondary elevated ammonia Continue sedation while intubated. No sedation vacation due to severe hypoxemic respiratory failure Vitamin bag daily 3 dosages CIWA protocol ordered for alcohol withdrawal, hold while intubated and sedated CV: Septic shock Fluid overload Significant positive fluid balance since admission with IV fluids as well as blood products. Inadequate response to IV Lasix. Bumex 2 mg IV push and start infusion at 1 mg/h IV albumin 25 g every 12 On [place]-Synephrine for pressor support. Resp: Acute hypoxemic respiratory failure on mechanical ventilation ARDS/TRALI Fluid overload Ongoing tobaccoism Started Solu-Medrol 80 mg IV every 12 hourly after 125 mg IV 1. Albuterol/ipratropium aerosols every 4 hours with albuterol aerosols every 2 hours as needed for dyspnea PEEP increased to +14, titrate FiO2 to keep O2 sat greater than 90%, currently on 70% oxygen Send sputum culture GI: Gastric ulcer Upper GI bleed History of cirrhosis History of colitis Hypoalbuminemia Hyper ammonia Elevated lipase Elevated total bilirubin Currently on pantoprazole drip at 8 mg an hour after receiving 80 mg bolus. Stopped octreotide drip on 10/06. GI following. EGD 10/04 revealed large gastric ulcer in the antrum. Epinephrine injected at the base of ulcer with visible vessel. High risk for rebleeding per GI. Having BM with lactulose Endo: Sliding scale insulin with Accu-Cheks to maintain euglycemia Renal: Strict intake output, monitor and replete electrolytes, follow BUN/creatinine. No response to 2 doses of IV Lasix. Consult nephrology. Creatinine is 2.2 today IV Bumex drip as above Replace electrolytes per ICU electrolyte protocol Heme: Leukocytosis macrocytic anemia/acute blood loss anemia Thrombocytopenia s/p 4 PRBCs/2 FFP along with 10 mg vitamin K IV 1 on 10/03. 2 units PRBCs 1 unit cryoprecipitate transfused on 10/04. Follow serial CBC and coags ID: Septic shock On ceftriaxone with upper GI bleed-DC today Start renally dosed Zosyn Access -Right IJ cordis in place Prophylaxis -GI -pantoprazole drip - -DVT SCD/holding pharmacological prophylaxis light of acute hemorrhage Palliative care consult requested to assist with deciding goals of therapy as prognosis appears poor with worsening respiratory status. 45 minutes critical care time Code Status: ALT CODE
[2017-10-07] MEDS ORDERED: Bumetanide Inj 25 MG/100 ML BAG IV.CONT SCH (09:00)
[2017-10-07] MEDS ORDERED: Potassium Chloride 20 MEQ Pwd Pkt NG/OG SCH (09:00)
--- NOTE | 2017-10-07 09:16 | XR ---
EXAM DATE: 10/07/2017 9:10 AM EDT AGE/SEX: 52 years / Female INDICATIONS: Respiratory failure. CLINICAL DATA: This is the patient's subsequent encounter. Patient reports that signs and symptoms h ave been present for 4 - 6 days and indicates a pain score of Nonresponsive. MEDICAL/SURGICAL HISTORY: . Cirrhosis. Gastrointestinal bleed. Colitis . Left shoulder replac ement COMPARISON: [facility], CHEST 1V SINGLE AP, 10/06/2017. . FINDINGS: Endotracheal tube is present with tip in satisfactory position about 6 cm above the harshad. Nasogastr ic tube descends into the stomach. Right neck central catheter descends in the SVC. There has been in terval improvement in aeration with decrease in confluence of bilateral infiltrates. Cardiac contours are grossly stable. CONCLUSION: Improving aeration Electronically signed by: Geo Riley MD 10/07/2017 9:14 AM EDT
[2017-10-07] MEDS: Senna/Docusate Sodium 8.6/50 MG Tablet PO SCH ×2 (09:47→20:50)
[2017-10-07] MEDS: rifAXIMin 550 MG Tablet PO SCH ×2 (09:47→20:51)
[2017-10-07] MEDS: Albumin Human 25% Inj 100 ML IV.SIG SCH ×2 (09:48→20:50)
[2017-10-07] MEDS: Chlorhexidine 0.12% Oral Kit 15 ML UDC OROPHARYNG SCH ×2 (09:49→20:51)
[2017-10-07] MEDS: Piperacil/Tazo 3.375 GM Premix 50 ML IV.SIG SCH ×2 (09:49→16:25)
[2017-10-07] MEDS ORDERED: Potassium Chloride 25 MEQ Effervescent Tablet PO ONE (10:00)
--- NOTE | 2017-10-07 13:38 | P.PNPAL ---
Reason for Visit Reason for visit: a. To assist with evaluation and management of symptoms including: Shortness of breath, at risk for pain b. To assist medical decision maker(s) with: better understanding of current medical conditions; weighing benefits/burdens of medical treatment options; making medical treatment decisions. Subjective Subjective/Interval History: Follow-up medically necessary for symptom management and further clarification of goals. Patient seen and examined in the presence of his mother in her room on MICU. Patient remains intubated, sedated on mechanical ventilator. Patient' s FiO2 currently 70% and PEEP increased to 14 but hypoxemic with her O2 saturation is in the high 80s-90%. Bedside RN notified. Sputum culture sent. Patient started on broad-spectrum antibiotics, Zosyn. Patient remains hypotensive requiring increasing [place]-Synephrine infusion to 220 mcg/min today. Patient is now on fentanyl infusion at 50 mcg/hr. no signs of pain noted. Patient is now oliguric with creatinine level increasing to 2.22. Patient has been started on a Bumex infusion at 1 mg/hr. nephrology consulted. Chest x-ray today revealed improving aeration. Laboratory workup today revealing WBC 25.3, hemoglobin 8.7, hematocrit 25.9, platelet count 272, sodium 152, potassium 4.2, BUN/creatinine 76/2.32, random glucose 94, calcium 7.3, AST 95, ALT 36, alkaline phosphatase 128, total protein 4.3, albumin 1.9. Patient`s mother updated on patient`s current medical status. She understands that at this time patient continues to deteriorate. She wants patient to remain intubated on mechanical ventilation and remain an alternative code, Intubation only, No CPR, No Shock and no ACLS drugs. She reiterates that she will never want to see her daughter suffering or allow her daughter to go through any invasive procedures if there is no hope of getting her back to where she was. She indicates that she still remains hopeful for her daughter to get better though she knows the prognosis is very poor. She does not want her daughter to have a tracheostomy or PEG tube placed and live in a halfway, or be in a vegetative state. Patient`s mother wants to give patient a few days and see if there will be any improvement and also allow other family members to come and see her. Patient`s mother indicating that if patient continues to deteriorate, she may consider compassionate withdrawal from life support. Introduced hospice philosophy and benefits. Patient`s mother appreciative of information and would like hospices services if she proceeds with compassionate withdrawal from life support. Allowed patient`s mother to tearfully express how she feels about her daughters illness. Provided support and listening. Patient`s mother enquiring about cremation services locally. Met patient`s mother again at bedside with Victoria Solomon LCSW. Provided her with a list of cremation services. Family/Friend Interactions: See interval note Advance Directives Health Care Surrogate Name and Number: Karina Zelaya [phone] Objective Vital Signs: Vital Signs 10/06/17 13:30 10/06/17 13:45 10/06/17 14:00 Temperature Pulse Rate 91 H 97 H 95 H Respiratory Rate 0 L 3 L 0 L Blood Pressure 92/54 L 92/54 L 97/56 L Pulse Oximetry 95 95 96 10/06/17 14:15 10/06/17 14:30 10/06/17 14:45 Temperature Pulse Rate 96 H 96 H 96 H Respiratory Rate 0 L 5 L 3 L Blood Pressure 91/54 L 95/50 L 93/54 L Pulse Oximetry 95 95 95 10/06/17 15:00 10/06/17 15:14 10/06/17 15:15 Temperature Pulse Rate 90 88 89 Respiratory Rate 0 L 17 0 L Blood Pressure 91/52 L 90/54 L Pulse Oximetry 96 96 10/06/17 15:30 10/06/17 15:45 10/06/17 16:00 Temperature 99.1 F Pulse Rate 88 89 90 Respiratory Rate 0 L 0 L 21 Blood Pressure 86/49 L 90/52 L 87/52 L Pulse Oximetry 96 95 95 10/06/17 16:15 10/06/17 16:30 10/06/17 16:31 Temperature Pulse Rate 93 H 89 96 H Respiratory Rate 9 L 18 8 L Blood Pressure 91/54 L 78/51 L 91/51 L Pulse Oximetry 95 95 93 L 10/06/17 16:45 10/06/17 17:00 10/06/17 17:03 Temperature Pulse Rate 87 86 Respiratory Rate 19 19 18 Blood Pressure 84/50 L 79/45 L Pulse Oximetry 96 96 95 10/06/17 17:07 10/06/17 17:15 08/16/18 17:30 Temperature Pulse Rate 87 89 86 Respiratory Rate 0 L 20 18 Blood Pressure 91/52 L 89/53 L 85/50 L Pulse Oximetry 95 95 95 10/06/17 17:45 10/06/17 18:00 10/06/17 18:15 Temperature Pulse Rate 90 89 90 Respiratory Rate 11 L 10 L 16 Blood Pressure 93/54 L 92/55 L 95/52 L Pulse Oximetry 95 95 95 10/06/17 18:30 10/06/17 18:45 10/06/17 19:00 Temperature Pulse Rate 88 87 88 Respiratory Rate 17 18 17 Blood Pressure 92/51 L 86/51 L 85/46 L Pulse Oximetry 95 95 95 10/06/17 19:15 10/06/17 19:26 10/06/17 19:30 Temperature Pulse Rate 97 H 97 H 96 H Respiratory Rate 21 20 3 L Blood Pressure 98/53 L 92/53 L Pulse Oximetry 95 96 96 10/06/17 19:45 10/06/17 20:00 10/06/17 20:15 Temperature 98.9 F Pulse Rate 99 H 98 H 96 H Respiratory Rate 13 0 L 0 L Blood Pressure 92/54 L 87/48 L 89/52 L Pulse Oximetry 93 L 93 L 93 L 10/06/17 20:30 10/06/17 20:45 10/06/17 21:00 Temperature Pulse Rate 95 H 94 H 95 H Respiratory Rate 0 L 0 L 0 L Blood Pressure 90/52 L 86/51 L 87/51 L Pulse Oximetry 93 L 93 L 94 L 10/06/17 21:15 10/06/17 21:30 10/06/17 21:45 Temperature Pulse Rate 99 H 100 H 98 H Respiratory Rate 1 L 0 L 0 L Blood Pressure 88/53 L 91/53 L 94/50 L Pulse Oximetry 94 L 94 L 93 L 10/06/17 22:00 10/06/17 22:15 10/06/17 22:30 Temperature Pulse Rate 100 H 97 H 96 H Respiratory Rate 6 L 0 L 1 L Blood Pressure 92/55 L 91/55 L 90/52 L Pulse Oximetry 94 L 95 95 10/06/17 22:45 10/06/17 23:00 10/06/17 23:15 Temperature Pulse Rate 101 H 98 H 97 H Respiratory Rate 10 L 3 L 0 L Blood Pressure 100/50 L 89/49 L 90/53 L Pulse Oximetry 97 95 95 10/06/17 23:16 10/06/17 23:30 10/06/17 23:45 Temperature Pulse Rate 96 H 99 H 97 H Respiratory Rate 20 3 L 1 L Blood Pressure 86/51 L 87/52 L Pulse Oximetry 95 95 94 L 10/07/17 00:00 10/07/17 00:15 10/07/17 00:30 Temperature 98.8 F Pulse Rate 100 H 99 H 97 H Respiratory Rate 11 L 4 L 1 L Blood Pressure 89/50 L 89/54 L 88/53 L Pulse Oximetry 94 L 93 L 94 L 10/07/17 00:45 10/07/17 00:46 10/07/17 00:47 Temperature Pulse Rate 99 H 100 H 99 H Respiratory Rate 15 12 12 Blood Pressure 84/47 L 83/48 L 84/50 L Pulse Oximetry 93 L 93 L 94 L 10/07/17 01:00 10/07/17 01:15 10/07/17 01:30 Temperature Pulse Rate 97 H 99 H 101 H Respiratory Rate 10 L 29 H 7 L Blood Pressure 88/53 L 104/61 95/55 L Pulse Oximetry 94 L 93 L 94 L 10/07/17 01:45 10/07/17 02:00 10/07/17 02:15 Temperature Pulse Rate 101 H 99 H 94 H Respiratory Rate 3 L 5 L 0 L Blood Pressure 97/53 L 92/54 L 88/53 L Pulse Oximetry 92 L 93 L 94 L 10/07/17 02:30 10/07/17 02:45 10/07/17 02:46 Temperature Pulse Rate 92 H 90 90 Respiratory Rate 22 4 L 0 L Blood Pressure 88/53 L 84/45 L 84/46 L Pulse Oximetry 94 L 94 L 94 L 10/07/17 02:48 10/07/17 02:49 10/07/17 02:50 Temperature Pulse Rate 90 90 90 Respiratory Rate 1 L 0 L 0 L Blood Pressure 85/47 L 87/48 L 88/53 L Pulse Oximetry 94 L 94 L 94 L 10/07/17 03:00 10/07/17 03:15 10/07/17 03:24 Temperature Pulse Rate 90 94 H 91 H Respiratory Rate 0 L 16 20 Blood Pressure 90/55 L 103/51 L Pulse Oximetry 94 L 93 L 94 L 10/07/17 03:30 10/07/17 03:45 10/07/17 04:00 Temperature 98.6 F Pulse Rate 97 H 98 H 93 H Respiratory Rate 5 L 4 L 0 L Blood Pressure 97/55 L 98/51 L 95/51 L Pulse Oximetry 93 L 93 L 95 10/07/17 04:15 10/07/17 04:31 10/07/17 04:45 Temperature Pulse Rate 93 H 100 H 96 H Respiratory Rate 15 21 0 L Blood Pressure 89/54 L 101/52 L 84/47 L Pulse Oximetry 95 97 95 10/07/17 05:00 10/07/17 05:15 10/07/17 05:30 Temperature Pulse Rate 97 H 101 H 97 H Respiratory Rate 0 L 7 L 0 L Blood Pressure 84/49 L 88/49 L 89/50 L Pulse Oximetry 95 93 L 94 L 10/07/17 05:45 10/07/17 06:00 10/07/17 06:01 Temperature Pulse Rate 97 H 99 H 100 H Respiratory Rate 1 L 11 L 8 L Blood Pressure 88/52 L 77/44 L 96/52 L Pulse Oximetry 92 L 93 L 92 L 10/07/17 06:15 10/07/17 06:30 10/07/17 06:31 Temperature Pulse Rate 98 H 100 H 101 H Respiratory Rate 12 0 L 14 Blood Pressure 91/49 L 79/44 L 90/52 L Pulse Oximetry 93 L 93 L 93 L 10/07/17 06:32 10/07/17 06:45 10/07/17 07:00 Temperature Pulse Rate 101 H 102 H 97 H Respiratory Rate 10 L 9 L 4 L Blood Pressure 93/53 L 98/50 L 91/51 L Pulse Oximetry 95 94 L 93 L 10/07/17 07:15 10/07/17 07:30 10/07/17 07:45 Temperature Pulse Rate 96 H 96 H 96 H Respiratory Rate 4 L 10 L 5 L Blood Pressure 93/49 L 87/48 L 90/48 L Pulse Oximetry 92 L 92 L 93 L 10/07/17 08:00 10/07/17 08:15 10/07/17 08:30 Temperature 98.6 F Pulse Rate 97 H 94 H 97 H Respiratory Rate 0 L 14 0 L Blood Pressure 87/52 L 85/49 L 84/51 L Pulse Oximetry 94 L 94 L 94 L 10/07/17 08:45 10/07/17 09:00 10/07/17 10:00 Temperature Pulse Rate 96 H 96 H 112 H Respiratory Rate 17 16 Blood Pressure 86/48 L 88/52 L Pulse Oximetry 93 L 93 L 10/07/17 11:00 10/07/17 11:39 10/07/17 12:50 Temperature Pulse Rate 111 H Respiratory Rate 18 17 Blood Pressure Pulse Oximetry 90 L 93 L Intake & Output 10/06/17 10/07/17 10/07/17 18:59 06:59 18:59 Intake Total 1104.6 / 1104.6 383.4 / 383.4 Output Total 645 / 645 225 / 225 Balance 459.6 / 459.6 158.4 / 158.4 Weight 78.8 kg Intake: IV 1104.6 / 1104.6 383.4 / 383.4 Normosol-R Inj 1,000 ML @ 84 421 / 421 mls/hr IV.CONT .[id number] NIELS Rx# :[id number] Protonix Inj 80 MG In NS Inj 128 / 128 100 ML @ 10 mls/hr IV.CONT CONT NIELS Rx#:[id number] Neosynephrine Inj 160 MG In D5W 339 / 339 Inj 484 ML @ 40 MCG/MIN 7.5 mls/hr IV.CONT TITRATE PRN Rx#: [id number] Neosynephrine Inj 160 MG In NS 151 / 151 349 / 349 Inj 484 ML @ 40 MCG/MIN 7.5 mls /hr IV.CONT TITRATE PRN Rx#: [id number] Diprivan 1000 mg/100 ml Inj 1, 65.6 / 65.6 34.4 / 34.4 000 mg In 100 ml @ 5 MCG/KG/MIN 2.034 mls/hr IV.CONT TITRATE PRN Rx#:[id number] Output: Urine 75 / 75 Emesis 150 / 150 Urine Amount (Catheter) 625 / 625 Indwelling Urethral Catheter 625 / 625 Gastric Drainage 20 / 20 Right Nare Nasogastric Tube 20 / 20 Other: # Bowel Movements 0 Physical Exam: CONSTITUTIONAL/GENERAL: This is an adequately nourished patient, in no apparent distress. TUBES/LINES/DRAINS: Right IJ single lumen catheter, PIV, ETT, OG tube, Gold catheter, SCD SKIN: No rashes, or lesions. Slightly jaundiced. Ecchymoses on upper extremities. No wounds seen anteriorly. Skin temperature appropriate. Not diaphoretic. HEAD: Atraumatic. Normocephalic. EYES: Pupils equal and round and reactive. Extraocular motions intact. Slightly scleral icterus, and scleral edema. No injection or drainage. Fundi not examined. ENT: Hearing grossly normal. Nose without bleeding or purulent drainage. ETT in place. Moist oral mucosa NECK: Trachea midline. Supple, nontender. CARDIOVASCULAR: Regular rate and rhythm without murmurs, gallops, or rubs. No JVD. Peripheral pulses symmetric. RESPIRATORY/CHEST: Symmetric, unlabored respirations. Rhonchi to auscultation. No wheezing. GASTROINTESTINAL: Abdomen soft, non-tender, nondistended. Hypoactive bowel sounds. OGT to LIWS GENITOURINARY: Without palpable bladder distension. Gold catheter in place. MUSCULOSKELETAL: Extremities without clubbing, cyanosis, or edema. No joint tenderness or effusion noted. No calf tenderness. No mottling or clubbing. NEUROLOGICAL: Intubated, sedated. Withdraws with all 4 extremities. PSYCHIATRIC: Unable to assess. Patient intubated, sedated and calm. Diagnostic Tests Laboratory: Laboratory Results - last 72 hr 10/03/17 10/04/17 10/04/17 18:53 06:30 17:04 WBC RBC Hgb Hct MCV MCH MCHC RDW Plt Count MPV Prelim Diff (Auto) Neut % (Auto) Lymph % (Auto) [place] % (Auto) Eos % (Auto) Baso % (Auto) Neut # (Auto) Lymph # (Auto) [place] # (Auto) Eos # (Auto) Baso # (Auto) WBC Differential Diff Scan Seg Neuts % (Manual) Band Neuts % (Manual) Lymphocytes % (Manual) Monocytes % (Manual) Eosinophils % (Manual) Metamyelocytes % (Man) Abs Neuts (Manual) Nucleated RBCs/100 WBC Differential Comment Toxic Granulation Toxic Vacuolation Dohle Bodies Platelet Estimate Platelet Morphology Polychromasia Ovalocytes PT INR APTT Fibrinogen Sodium Potassium Chloride Carbon Dioxide Anion Gap BUN Creatinine Estimated GFR POC Glucose 123 H Random Glucose Lactic Acid Calcium Prot Corrected Calcium Phosphorus Magnesium Total Bilirubin 7.6 H Direct Bilirubin 2.5 H Indirect Bilirubin 5.1 H AST ALT Alkaline Phosphatase Troponin I Total Protein Albumin Urine Opiates Screen Ur Barbiturates Screen Ur Amphetamines Screen U Benzodiazepines Scrn Urine Cocaine Screen U Cannabinoids Screen Crossmatch See Detail MTS Gel Crossmatch See Detail 10/04/17 10/04/17 10/04/17 17:42 23:25 23:48 WBC RBC Hgb 8.5 L D 8.2 L Hct 23.7 L 23.0 L MCV MCH MCHC RDW Plt Count MPV Prelim Diff (Auto) Neut % (Auto) Lymph % (Auto) [place] % (Auto) Eos % (Auto) Baso % (Auto) Neut # (Auto) Lymph # (Auto) [place] # (Auto) Eos # (Auto) Baso # (Auto) WBC Differential Diff Scan Seg Neuts % (Manual) Band Neuts % (Manual) Lymphocytes % (Manual) Monocytes % (Manual) Eosinophils % (Manual) Metamyelocytes % (Man) Abs Neuts (Manual) Nucleated RBCs/100 WBC Differential Comment Toxic Granulation Toxic Vacuolation Dohle Bodies Platelet Estimate Platelet Morphology Polychromasia Ovalocytes PT INR APTT Fibrinogen Sodium Potassium Chloride Carbon Dioxide Anion Gap BUN Creatinine Estimated GFR POC Glucose 106 Random Glucose Lactic Acid Calcium Prot Corrected Calcium Phosphorus Magnesium Total Bilirubin Direct Bilirubin Indirect Bilirubin AST ALT Alkaline Phosphatase Troponin I Total Protein Albumin Urine Opiates Screen Ur Barbiturates Screen Ur Amphetamines Screen U Benzodiazepines Scrn Urine Cocaine Screen U Cannabinoids Screen Crossmatch MTS Gel Crossmatch 10/05/17 10/05/17 10/05/17 04:47 04:47 06:13 WBC RBC Hgb 8.8 L Hct 23.7 L MCV MCH MCHC RDW Plt Count MPV Prelim Diff (Auto) Neut % (Auto) Lymph % (Auto) [place] % (Auto) Eos % (Auto) Baso % (Auto) Neut # (Auto) Lymph # (Auto) [place] # (Auto) Eos # (Auto) Baso # (Auto) WBC Differential Diff Scan Seg Neuts % (Manual) Band Neuts % (Manual) Lymphocytes % (Manual) Monocytes % (Manual) Eosinophils % (Manual) Metamyelocytes % (Man) Abs Neuts (Manual) Nucleated RBCs/100 WBC Differential Comment Toxic Granulation Toxic Vacuolation Dohle Bodies Platelet Estimate Platelet Morphology Polychromasia Ovalocytes PT 15.9 H INR 1.6 APTT 32.0 H Fibrinogen 151 L Sodium Potassium Chloride Carbon Dioxide Anion Gap BUN Creatinine Estimated GFR POC Glucose 110 Random Glucose Lactic Acid Calcium Prot Corrected Calcium Phosphorus Magnesium Total Bilirubin Direct Bilirubin Indirect Bilirubin AST ALT Alkaline Phosphatase Troponin I Total Protein Albumin Urine Opiates Screen Ur Barbiturates Screen Ur Amphetamines Screen U Benzodiazepines Scrn Urine Cocaine Screen U Cannabinoids Screen Crossmatch MTS Gel Crossmatch 10/05/17 10/05/17 10/05/17 09:44 10:44 10:44 WBC RBC Hgb Hct MCV MCH MCHC RDW Plt Count MPV Prelim Diff (Auto) Neut % (Auto) Lymph % (Auto) [place] % (Auto) Eos % (Auto) Baso % (Auto) Neut # (Auto) Lymph # (Auto) [place] # (Auto) Eos # (Auto) Baso # (Auto) WBC Differential Diff Scan Seg Neuts % (Manual) Band Neuts % (Manual) Lymphocytes % (Manual) Monocytes % (Manual) Eosinophils % (Manual) Metamyelocytes % (Man) Abs Neuts (Manual) Nucleated RBCs/100 WBC Differential Comment Toxic Granulation Toxic Vacuolation Dohle Bodies Platelet Estimate Platelet Morphology Polychromasia Ovalocytes PT INR APTT Fibrinogen Sodium Potassium Chloride Carbon Dioxide Anion Gap BUN Creatinine Estimated GFR POC Glucose Random Glucose Lactic Acid 2.9 H Calcium Prot Corrected Calcium Phosphorus 3.0 D Magnesium 1.6 Total Bilirubin Direct Bilirubin Indirect Bilirubin AST ALT Alkaline Phosphatase Troponin I 0.07 H D Total Protein Albumin Urine Opiates Screen Neg Ur Barbiturates Screen Neg Ur Amphetamines Screen Neg U Benzodiazepines Scrn Pos H Urine Cocaine Screen Neg U Cannabinoids Screen Neg Crossmatch MTS Gel Crossmatch 10/05/17 10/05/17 10/05/17 10:44 10:44 10:44 WBC 13.6 H RBC 2.73 L Hgb 8.2 L Hct 23.0 L MCV 84.2 MCH 30.1 MCHC 35.7 RDW 18.3 H D Plt Count 45 L MPV 8.8 Prelim Diff (Auto) Slide review pending Neut % (Auto) 91.3 H Lymph % (Auto) 1.9 L [place] % (Auto) 5.9 Eos % (Auto) 0.6 Baso % (Auto) 0.3 Neut # (Auto) 12.4 H Lymph # (Auto) 0.3 L [place] # (Auto) 0.8 Eos # (Auto) 0.1 Baso # (Auto) 0.0 WBC Differential Manual diff final Diff Scan Seg Neuts % (Manual) 53 Band Neuts % (Manual) 41 H Lymphocytes % (Manual) 1 L Monocytes % (Manual) 1 Eosinophils % (Manual) Metamyelocytes % (Man) 4 H Abs Neuts (Manual) 13.3 H Nucleated RBCs/100 WBC 1 H Differential Comment . Toxic Granulation Toxic Vacuolation Dohle Bodies Platelet Estimate Low L Platelet Morphology Normal Polychromasia 2.4 H Ovalocytes PT 16.6 H INR 1.6 APTT Fibrinogen Sodium 153 H Potassium 3.3 L D Chloride 122 H Carbon Dioxide 18.2 L Anion Gap 13 BUN 54 H Creatinine 1.50 H Estimated GFR 36 L POC Glucose Random Glucose 109 H Lactic Acid Calcium 6.3 L* Prot Corrected Calcium 8.0 L Phosphorus Magnesium Total Bilirubin 7.4 H Direct Bilirubin Indirect Bilirubin AST 90 H ALT 32 Alkaline Phosphatase 104 Troponin I Total Protein 3.8 L Albumin 2.0 L Urine Opiates Screen Ur Barbiturates Screen Ur Amphetamines Screen U Benzodiazepines Scrn Urine Cocaine Screen U Cannabinoids Screen Crossmatch MTS Gel Crossmatch 10/05/17 10/05/17 10/05/17 12:00 17:43 18:30 WBC RBC Hgb Hct MCV MCH MCHC RDW Plt Count MPV Prelim Diff (Auto) Neut % (Auto) Lymph % (Auto) [place] % (Auto) Eos % (Auto) Baso % (Auto) Neut # (Auto) Lymph # (Auto) [place] # (Auto) Eos # (Auto) Baso # (Auto) WBC Differential Diff Scan Seg Neuts % (Manual) Band Neuts % (Manual) Lymphocytes % (Manual) Monocytes % (Manual) Eosinophils % (Manual) Metamyelocytes % (Man) Abs Neuts (Manual) Nucleated RBCs/100 WBC Differential Comment Toxic Granulation Toxic Vacuolation Dohle Bodies Platelet Estimate Platelet Morphology Polychromasia Ovalocytes PT INR APTT Fibrinogen Sodium Potassium Chloride Carbon Dioxide Anion Gap BUN Creatinine Estimated GFR POC Glucose 108 111 H Random Glucose Lactic Acid Calcium Prot Corrected Calcium Phosphorus Magnesium Total Bilirubin Direct Bilirubin Indirect Bilirubin AST ALT Alkaline Phosphatase Troponin I 0.05 Total Protein Albumin Urine Opiates Screen Ur Barbiturates Screen Ur Amphetamines Screen U Benzodiazepines Scrn Urine Cocaine Screen U Cannabinoids Screen Crossmatch MTS Gel Crossmatch 10/05/17 10/05/17 10/05/17 18:30 21:55 23:30 WBC RBC Hgb 8.2 L Hct 23.3 L MCV MCH MCHC RDW Plt Count MPV Prelim Diff (Auto) Neut % (Auto) Lymph % (Auto) [place] % (Auto) Eos % (Auto) Baso % (Auto) Neut # (Auto) Lymph # (Auto) [place] # (Auto) Eos # (Auto) Baso # (Auto) WBC Differential Diff Scan Seg Neuts % (Manual) Band Neuts % (Manual) Lymphocytes % (Manual) Monocytes % (Manual) Eosinophils % (Manual) Metamyelocytes % (Man) Abs Neuts (Manual) Nucleated RBCs/100 WBC Differential Comment Toxic Granulation Toxic Vacuolation Dohle Bodies Platelet Estimate Platelet Morphology Polychromasia Ovalocytes PT INR APTT Fibrinogen Sodium Potassium Chloride Carbon Dioxide Anion Gap BUN Creatinine Estimated GFR POC Glucose 116 H Random Glucose Lactic Acid Calcium Prot Corrected Calcium Phosphorus Magnesium Total Bilirubin Direct Bilirubin Indirect Bilirubin AST ALT Alkaline Phosphatase Troponin I 0.05 Total Protein Albumin Urine Opiates Screen Ur Barbiturates Screen Ur Amphetamines Screen U Benzodiazepines Scrn Urine Cocaine Screen U Cannabinoids Screen Crossmatch MTS Gel Crossmatch 10/06/17 10/06/17 10/06/17 01:40 01:40 06:01 WBC 18.4 H RBC 2.83 L Hgb 8.2 L Hct 24.3 L MCV 85.9 MCH 29.1 MCHC 33.9 RDW 19.2 H Plt Count 58 L MPV 8.2 Prelim Diff (Auto) Slide review pending Neut % (Auto) 89.2 H Lymph % (Auto) 2.7 L [place] % (Auto) 7.2 Eos % (Auto) 0.5 Baso % (Auto) 0.4 Neut # (Auto) 16.4 H Lymph # (Auto) 0.5 L [place] # (Auto) 1.3 H Eos # (Auto) 0.1 Baso # (Auto) 0.1 WBC Differential . Diff Scan Auto diff confirmed Seg Neuts % (Manual) Band Neuts % (Manual) Lymphocytes % (Manual) Monocytes % (Manual) Eosinophils % (Manual) Metamyelocytes % (Man) Abs Neuts (Manual) Nucleated RBCs/100 WBC Differential Comment . Toxic Granulation Toxic Vacuolation Dohle Bodies Platelet Estimate Low L Platelet Morphology Normal Polychromasia Ovalocytes 1+ H PT INR APTT Fibrinogen Sodium 151 H Potassium 4.2 D Chloride 122 H Carbon Dioxide 20.5 L Anion Gap 9 BUN 63 H Creatinine 1.69 H Estimated GFR 32 L POC Glucose 109 Random Glucose 104 Lactic Acid Calcium 6.8 L* Prot Corrected Calcium 8.6 Phosphorus Magnesium Total Bilirubin 8.5 H Direct Bilirubin Indirect Bilirubin AST 93 H ALT 32 Alkaline Phosphatase 118 H Troponin I Total Protein 3.9 L Albumin 1.9 L Urine Opiates Screen Ur Barbiturates Screen Ur Amphetamines Screen U Benzodiazepines Scrn Urine Cocaine Screen U Cannabinoids Screen Crossmatch MTS Gel Crossmatch 10/06/17 10/06/17 10/06/17 11:56 17:57 23:33 WBC RBC Hgb Hct MCV MCH MCHC RDW Plt Count MPV Prelim Diff (Auto) Neut % (Auto) Lymph % (Auto) [place] % (Auto) Eos % (Auto) Baso % (Auto) Neut # (Auto) Lymph # (Auto) [place] # (Auto) Eos # (Auto) Baso # (Auto) WBC Differential Diff Scan Seg Neuts % (Manual) Band Neuts % (Manual) Lymphocytes % (Manual) Monocytes % (Manual) Eosinophils % (Manual) Metamyelocytes % (Man) Abs Neuts (Manual) Nucleated RBCs/100 WBC Differential Comment Toxic Granulation Toxic Vacuolation Dohle Bodies Platelet Estimate Platelet Morphology Polychromasia Ovalocytes PT INR APTT Fibrinogen Sodium Potassium Chloride Carbon Dioxide Anion Gap BUN Creatinine Estimated GFR POC Glucose 103 109 97 Random Glucose Lactic Acid Calcium Prot Corrected Calcium Phosphorus Magnesium Total Bilirubin Direct Bilirubin Indirect Bilirubin AST ALT Alkaline Phosphatase Troponin I Total Protein Albumin Urine Opiates Screen Ur Barbiturates Screen Ur Amphetamines Screen U Benzodiazepines Scrn Urine Cocaine Screen U Cannabinoids Screen Crossmatch MTS Gel Crossmatch 10/07/17 10/07/17 10/07/17 04:25 04:25 12:55 WBC 25.3 H RBC 2.97 L Hgb 8.7 L Hct 25.9 L MCV 87.2 MCH 29.1 MCHC 33.4 RDW 19.8 H Plt Count 72 L MPV 8.4 Prelim Diff (Auto) Slide review pending Neut % (Auto) 85.1 H Lymph % (Auto) 3.5 L [place] % (Auto) 10.2 H Eos % (Auto) 0.6 Baso % (Auto) 0.6 Neut # (Auto) 21.5 H Lymph # (Auto) 0.9 L [place] # (Auto) 2.6 H Eos # (Auto) 0.2 Baso # (Auto) 0.2 WBC Differential Manual diff final Diff Scan Seg Neuts % (Manual) 72 H Band Neuts % (Manual) 22 H Lymphocytes % (Manual) 1 L Monocytes % (Manual) 4 Eosinophils % (Manual) 1 Metamyelocytes % (Man) Abs Neuts (Manual) 23.8 H Nucleated RBCs/100 WBC 2 H Differential Comment . Toxic Granulation 1+ H Toxic Vacuolation Present H Dohle Bodies Present H Platelet Estimate Low L Platelet Morphology Normal Polychromasia 2.3 H Ovalocytes PT INR APTT Fibrinogen Sodium 152 H Potassium 4.2 Chloride 121 H Carbon Dioxide 18.9 L Anion Gap 12 BUN 76 H Creatinine 2.32 H Estimated GFR 22 L POC Glucose 96 Random Glucose 94 Lactic Acid Calcium 7.3 L* Prot Corrected Calcium 8.9 Phosphorus Magnesium Total Bilirubin 10.5 H Direct Bilirubin Indirect Bilirubin AST 95 H ALT 36 Alkaline Phosphatase 128 H Troponin I Total Protein 4.3 L Albumin 1.9 L Urine Opiates Screen Ur Barbiturates Screen Ur Amphetamines Screen U Benzodiazepines Scrn Urine Cocaine Screen U Cannabinoids Screen Crossmatch MTS Gel Crossmatch Result Diagrams: 10/07/17 04:25 10/07/17 04:25 Microbiology: Microbiology 10/06/17 08:00 Gram Stain - Final Sputum - Endotracheal Imaging: Liver Ultrasound 10/04/17 00:00 CONCLUSION: 1. Cirrhotic liver with small amount of ascites and reversal of flow in the portal vein. 2. Gallbladder wall thickening with cholelithiasis. These findings are commonly seen in the setting of cirrhosis and limit sonographic sensitivity for early acute cholecystitis. 3. Small bilateral pleural effusions. Chest X-Ray 10/07/17 08:05 CONCLUSION: Improving aeration Procedures: 10/03/17-right IJ single-lumen central line placement 10/04/17-endotracheal intubation 10/04/17-upper endoscopy with ablation Assessment and Plan - Disease Oriented Problem List (1) Upper GI bleed (2) Cirrhosis (3) Anemia (4) Leukocytosis (5) Hyperammonemia - Symptom Scale (1) At risk for pain 0-10 Scale: Unable to quantify (2) Shortness of breath 0-10 Scale: Unable to quantify Comment: Patient came in with GI bleed with a low hemoglobin. Currently intubated with a high FiO2. Chest x-ray on 10/06 showing bilateral diffuse consolidation or atelectasis. Pertinent Non-Medical Issues: Psychosocial: Patient lives in [facility]. Patient has been for multiple years. She never had children. She has one sibling a brother Nicko Zelaya. 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 Spiritual:Patient is Jainism and mother has requested visit from . Legal:Patient`s mother stated that she is patient`s Health care surrogate. Ethical issues impacting care: None identified at this time Important Contacts: Mother-Karina Zelaya [phone] Currently at the [facility] [phone] Ext [phone] Brother-Nicko [phone] Prognosis: Ms. Allen is a 52 years old patient with a past medical history significant for cirrhosis secondary to EtOH abuse, hepatitis, GI bleed, anemia, colitis, tobacco use and history of blood transfusion. 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 Clinical course complicated with leukocytosis, hypotension,shortness of breath. Given multiple ongoing comorbidities, patient remains at high risk for further complications, deterioration and decline. Code Status: Alternative Code (No CPR, No shock) Plan: PLAN: Legal decision maker: Patient is currently intubated, sedated on mechanical ventilation and is not able to participate in decision-making. It is not known whether patient will be able to regain ability to participate in decision- making. Patient`s mother Nathalie Collins is patient`s health care proxy. Goals: Aggressive short of CPR, ACLS drugs and Shock. Patient's mother would like to allow other family members to come in and see patient and is hopeful that patient may improve even though she understands that the patient's prognosis is very poor. If patient continues to deteriorate, she may consider compassionate withdrawal from life support. Hospice was introduced today. Patient`s mother appreciative of information and would like hospices services if she proceeds with compassionate withdrawal from life support. CODE STATUS: Alternate Code, No CPR, No Shock,No ACLS drugs SYMPTOMS: * At risk for pain: Patient came in with a GI bleed. She has underwent EGD with ablation of a bleeding ulcer. Patient is intubated, sedated in bedbound status. Patient his fentanyl 50 mcg IVP every 4 hours prn. Patient was started on fentanyl infusion at 50mcg/hr. currently not showing signs of pain. Continue to monitor for pain. * Shortness of breath: Patient has history of GI bleed, tobacco use. She came in with GI bleed and low hemoglobin. Patient is currently intubated with an FiO2 of 70% and PEEP of 14 with O2 saturation in the high 80s-90% . Chest x- ray showing improving aeration. Sputum culture sent. Patient started on antibiotics. Patient is duo nebs ordered. No further recommendations * At risk for withdrawal: Patient is a history cirrhosis from EtOH abuse. Patient reported in ER that last alcohol consumption was 8 months ago. Patient is on CIWA protocol. Continue to monitor for withdrawal symptoms. Palliative care will continue to follow the patient during hospital course as condition evolves, to assist patient/decision-maker with understanding of their medical conditions, weighing benefits/burdens of treatment options, for clarification of goals of treatment. Additionally will assist with any symptoms of palliative concern.
[2017-10-07 16:07] LABS: Alanine Aminotransferase 39 U/L (10-53); Alkaline Phosphatase 122 U/L (45-117); Total Protein 4.6 g/dL (6.4-8.2)
[2017-10-07 16:17] LABS: Albumin 2.4 g/dL (3.4-5.0); Anion Gap 13 meq/L (5-15); Aspartate Aminotransferase 110 U/L (15-37); Blood Urea Nitrogen 78 mg/dL (7-18); Calcium 7.5 mg/dL (8.5-10.1); Carbon Dioxide 17.4 meq/L (21.0-32.0); Chloride 121 meq/L (98-107); Glomerular Filtration Rate 17 mL/min (>89); Glucose,Random 78 mg/dL (74-106); Potassium 4.6 meq/L (3.5-5.1); Sodium 151 meq/L (136-145)
[2017-10-07] MEDS ORDERED: Sod Chloride 0.9% Inj 1,000 ML IV.CONT PRN (16:36)
[2017-10-07] MEDS ORDERED: Albumin Human 25% Inj 100 ML IV.SIG PRN (16:36)
[2017-10-07] MEDS ORDERED: Gelatin 12 MM/7 MM Topical Foam TOPICAL PRN (16:36)
[2017-10-07] MEDS ORDERED: Sod Chloride 0.9% Inj 1,000 ML OTHER PRN ×2 (16:36)
[2017-10-07] MEDS ORDERED: Heparin 10,000 UNITS/10 ML Vial (for IV use) OTHER PRN ×2 (16:36)
[2017-10-07] MEDS ORDERED: Acetaminophen 325 MG Tablet PO PRN (16:36)
--- NOTE | 2017-10-07 16:50 | P.CONNP ---
History of Present Illness Service: Nephrology Consult date: 10/07/17 Primary Care Provider: UNKNOWN Chief Complaint: Hematemesis/ History of Present Illness: Patient is a 52-year-old female with history of end-stage liver disease, cirrhosis of the liver, ascites, GI bleed, patient is admitted with altered mental status intubated and GI bleeding, patient has hepatic encephalopathy, she is anuric Patient is on 85% FiO2 on ventilator Dr. Guardado consulted me as she is not responding to diuretic She has generalized anasarca Review of Systems unobtainable due to endotracheal tube PMFSH - History History Provided By: Medical Record - Medical History Medical History: Medical History (Last Reviewed 10/06/17 @ 08:46 by Mera Berrios) Anemia Colitis GI bleed History of blood transfusion Liver cirrhosis - Surgical History Surgical History: Surgical History (Last Reviewed 10/06/17 @ 08:46 by Mera Berrios) H/O shoulder surgery - Family History Family History: Family History (Last Reviewed 10/04/17 @ 07:52 by Mariajose Bowie) Other No significant family history - Tobacco History Second Hand Smoke Exposure: Yes Tobacco Use In Past 30 Days: Yes Smoking Status: Current every day smoker Tobacco Type: Cigarettes - Alcohol History How Often Do You Have a Drink Containing Alcohol: 2 to 4 times a month - Substance Use History Substance History: Active Abuse - Travel History Recent Travel in the [place] Within the Last 8 Weeks: No Recent Travel Out of the Country Within the Last 8 Weeks: No - Immunization History Tetanus Immunization: Unsure Hx Influenza Vaccine This Season: Yes Medications and Allergies Active Medications: Active Medications Acetaminophen (Tylenol) 650 mg PO UNSCH PRN PRN Reason: SEE LABEL COMMENTS Al Hydroxide/Mg Hydroxide (Milk Of Melly Hammond) 30 ml PO Q12H PRN PRN Reason: Mild Constipation Albuterol (Albuterol Neb (Prn)) 2.5 mg NEB Q2HR NEB PRN PRN Reason: SHORTNESS OF BREATH/WHEEZING Albuterol (Duoneb Neb (Delgado)) 1 ampul NEB Q4HR NEB [facility] Last Admin: 10/07/17 15:21 Dose: 1 ampul Bisacodyl (Dulcolax Supp) 10 mg RECTAL DAILY PRN PRN Reason: SEVERE CONSITIPATION Chlorhexidine Gluconate (Chlorhexidine 2% Cloth) 3 pack TOPICAL DAILY@0400 [facility] Stop: 10/09/17 03:59 Last Admin: 10/07/17 04:23 Dose: 3 pack Chlorhexidine Gluconate (Chlorhexidine 2% Cloth) 3 pack TOPICAL DAILY@0400 PRN PRN Reason: Extra cloth needed Stop: 10/09/17 03:59 Chlorhexidine Gluconate (Peridex 0.12% Oral Kit) 15 ml OROPHARYNG BID@0800, 2000 [facility] Last Admin: 10/07/17 09:49 Dose: 15 ml Clonidine HCl (Catapres) 0.1 mg PO UNSCH PRN PRN Reason: SEE LABEL COMMENTS Dextrose (D50w Vial) 50 ml IV.PUSH UNSCH PRN PRN Reason: PER HYPOGLYCEMIA PROTOCOL Diphenhydramine HCl (Benadryl) 25 mg PO UNSCH PRN PRN Reason: SEE LABEL COMMENTS Epoetin Gurdeep (Epogen Inj) 10,000 unit IV.PUSH UNSCH PRN PRN Reason: SEE LABEL COMMENTS Fentanyl Citrate (Fentanyl Inj) 50 mcg IV.PUSH Q4H PRN PRN Reason: PAIN 1-10 Flumazenil (Romazecon Inj) 0.2 mg IV.PUSH Q1M PRN PRN Reason: OVERSEDATION Gelatin (Gelfoam 12 Mm/7 Mm Topical) 1 foam TOPICAL PRN PRN PRN Reason: help stop bleeding from site Gentamicin Sulfate (Gentamicin Inj) 20 mg OTHER WITH DIALYSIS PRN PRN Reason: Dwell Gentamycin Lock Glucagon (Glucagon Inj) 1 mg OTHER PRN PRN PRN Reason: for Hypoglycemia Protocol Haloperidol Lactate (Haldol Inj) 1 mg IV.PUSH Q15M PRN PRN Reason: for severe agitation Heparin Sodium (Porcine) (Heparin Inj) 8,000 units OTHER WITH DIALYSIS PRN PRN Reason: for machine prime Heparin Sodium (Porcine) (Heparin Inj) 1,000 units OTHER WITH DIALYSIS PRN PRN Reason: Dwell Heparin to Fill Catheter Magnesium Sulfate Inj 4 gm/ (Sodium Chloride) 100 mls @ 50 mls/hr IV.SIG UNSCH PRN PRN Reason: For Magnesium 0.9 - 1.1 mg/dL Magnesium Sulfate Inj 2 gm/ (Sodium Chloride) 100 mls @ 50 mls/hr IV.SIG UNSCH PRN PRN Reason: For Magnesium 1.2 - 1.6 mg/dL Potassium Chloride (Kcl 40 Meq Premix Inj) 40 meq in 100 mls @ 25 mls/hr IV.SIG Q2H PRN PRN Reason: For Potassium 2.8 - 3.2 mEq/L Potassium Chloride (Kcl 20 Meq Premix Inj) 20 meq in 100 mls @ 50 mls/hr IV.SIG Q2H PRN PRN Reason: For Potassium 3.3 - 3.5 mEq/L Potassium Chloride (Kcl 40 Meq Premix Inj) 40 meq in 100 mls @ 25 mls/hr IV.SIG UNSCH PRN PRN Reason: For Potassium 3.3 - 3.5 mEq/L Last Infusion: 10/05/17 20:45 Dose: Infused Potassium Chloride (Kcl 20 Meq Premix Inj) 20 meq in 100 mls @ 50 mls/hr IV.SIG Q2H PRN PRN Reason: For Potassium 2.8 - 3.2 mEq/L Potassium Phosphate 30 mmol/ (Sodium Chloride) 260 mls @ 42 mls/hr IV.SIG UNSCH PRN PRN Reason: SEE LABEL COMMENTS Sodium Phosphate 30 mmol/ (Sodium Chloride) 260 mls @ 42 mls/hr IV.SIG UNSCH PRN PRN Reason: For Phosphorus < 2.5 mg/dL Propofol (Diprivan 1000 Mg/100 Ml Inj) 1,000 mg in 100 mls @ 2.034 mls/hr IV.CONT TITRATE PRN; Protocol PRN Reason: Per Protocol Last Titration: 10/07/17 04:36 Dose: 0 mcg/kg/min, 0 mls/hr Phenylephrine HCl 160 mg/ (Sodium Chloride) 500 mls @ 7.5 mls/hr IV.CONT TITRATE PRN; Protocol PRN Reason: See Protocol Last Admin: 10/07/17 05:11 Dose: 200 mcg/min, 37.5 mls/hr Fentanyl (Fentanyl 10 Mcg/Ml Premix Drip) 2,500 mcg in 250 mls @ 5 mls/hr IV.SIG TITRATE PRN; Protocol PRN Reason: Per Protocol Last Admin: 10/07/17 04:36 Dose: 50 mcg/hr, 5 mls/hr Albumin Human (Flexbumin 25% Inj) 100 mls @ 60 mls/hr IV.SIG Q12H [facility] Last Infusion: 10/07/17 15:59 Dose: Infused Bumetanide (Bumex Inj) 25 mg in 100 mls @ 4 mls/hr IV.CONT .Q24H [facility] Last Admin: 10/07/17 09:48 Dose: 1 mg/hr, 4 mls/hr Piperacillin/Tazobactam/Dextrose (Zosyn 3.375 Gm Premix) 50 mls @ 100 mls/hr IV.SIG Q8H [facility] Last Admin: 10/07/17 16:25 Dose: 100 mls/hr Linezolid (Zyvox 600 Mg Premix) 300 mls @ 300 mls/hr IV.SIG Q12H [facility] Last Admin: 10/07/17 15:29 Dose: 300 mls/hr Albumin Human (Flexbumin 25% Inj) 100 mls @ 60 mls/hr IV.SIG WITH DIALYSIS PRN PRN Reason: hypotension / volume replace Sodium Chloride (Ns Inj) 1,000 mls @ 0 mls/hr OTHER .Q0M PRN PRN Reason: for prime and rinse back Sodium Chloride (Ns Inj) 1,000 mls @ 200 mls/hr OTHER .Q5H PRN PRN Reason: for dialyzer flush PRN Sodium Chloride (Ns Inj) 1,000 mls @ 0 mls/hr IV.CONT .Q0M PRN PRN Reason: hypotension / volume replace Insulin Aspart (Novolog Insulin Correctional Sugar Inj) 0 unit SQ Q6HR [facility]; Protocol Last Admin: 10/07/17 13:03 Dose: Not Given Lactulose (Lactulose Liq) 30 ml PO DAILY PRN PRN Reason: SEVERE CONSITIPATION Lactulose (Lactulose Liq) 30 ml PO BID [facility] Last Admin: 10/07/17 09:47 Dose: 30 ml Lorazepam (Ativan) 1 mg PO Q4H PRN PRN Reason: for CIWA 8-10 Lorazepam (Ativan) 2 mg PO Q2H PRN PRN Reason: for CIWA 11-14 Lorazepam (Ativan Inj) 2 mg IV.PUSH Q1H PRN PRN Reason: for CIWA 15-20 Lorazepam (Ativan Inj) 2 mg IV.PUSH Q15M PRN PRN Reason: for CIWA > 20 Lorazepam (Ativan Inj) 1 mg IV.PUSH Q4H PRN PRN Reason: for CIWA 8-10 Lorazepam (Ativan Inj) 2 mg IV.PUSH Q2H PRN PRN Reason: for CIWA 11-14 Magnesium Oxide (Mag-Ox) 800 mg PO UNSCH PRN PRN Reason: For Magnesium 1.2 - 1.6 mg/dL Mannitol (Mannitol Inj) 12.5 gm IV.PUSH UNSCH PRN PRN Reason: hypotension / volume replace Nitroglycerin (Nitrostat Sl) 0.4 mg SL Q5M PRN PRN Reason: CHEST PAIN Ondansetron HCl (Zofran Inj) 4 mg IV.PUSH UNSCH PRN PRN Reason: NAUSEA OR VOMITING Pantoprazole Sodium (Protonix Inj) 40 mg IV.PUSH Q12H [facility] Last Admin: 10/07/17 14:17 Dose: 40 mg Potassium Bicarb/Potassium Chloride (K-Lyte Cl Eff) 50 meq PO UNSCH PRN PRN Reason: For Potassium 3.3 - 3.5 mEq/L Potassium Phosphate (K-Phos Original) 2,000 mg PO Q4H PRN PRN Reason: Phosphorus Less Than 2.5 mg/dL Potassium Phosphate (K-Phos Original) 2,000 mg PO UNSCH PRN PRN Reason: SEE LABEL COMMENTS Rifaximin (Xifaxan) 550 mg PO Q12HR [facility] Last Admin: 10/07/17 09:47 Dose: 550 mg Senna/Docusate Sodium (Shira-Colace) 1 tab PO BID [facility] Last Admin: 10/07/17 09:47 Dose: 1 tab Sennosides (Senokot) 17.2 mg PO Q12H PRN PRN Reason: Moderate Constipation Sodium Chloride (Ns Flush) 2 ml IV.FLUSH BID [facility] Last Admin: 10/07/17 09:47 Dose: 2 ml Sodium Chloride (Ns Flush) 2 ml IV.FLUSH PRN PRN PRN Reason: FLUSH AFTER USING IV ACCESS Sodium Chloride (Ns Flush) 0 ml IV.FLUSH DAILY [facility] Last Admin: 10/07/17 09:48 Dose: 10 ml Sodium Chloride (Ns Flush) 5 ml IV.FLUSH PRN PRN PRN Reason: flush each lumen during HD Thiamine HCl (Vitamin B1) 100 mg PO DAILY [facility] Last Admin: 10/07/17 09:47 Dose: 100 mg Allergies Allergy/AdvReac Type Severity Reaction Status Date / Time No Known Allergies Allergy Verified 10/03/17 17:38 Home Medications Medication Instructions Recorded Confirmed Type No Known Home Medications 10/03/17 10/03/17 History Exam Vital signs: Vital Signs 10/06/17 17:00 10/06/17 17:03 10/06/17 17:07 Temperature Pulse Rate 86 87 Respiratory Rate 19 18 0 L Blood Pressure 79/45 L 91/52 L Pulse Oximetry 96 95 95 10/06/17 17:15 10/06/17 17:30 10/06/17 17:45 Temperature Pulse Rate 89 86 90 Respiratory Rate 20 18 11 L Blood Pressure 89/53 L 85/50 L 93/54 L Pulse Oximetry 95 95 95 10/06/17 18:00 10/06/17 18:15 10/06/17 18:30 Temperature Pulse Rate 89 90 88 Respiratory Rate 10 L 16 17 Blood Pressure 92/55 L 95/52 L 92/51 L Pulse Oximetry 95 95 95 10/06/17 18:45 10/06/17 19:00 10/06/17 19:15 Temperature Pulse Rate 87 88 97 H Respiratory Rate 18 17 21 Blood Pressure 86/51 L 85/46 L 98/53 L Pulse Oximetry 95 95 95 10/06/17 19:26 10/06/17 19:30 10/06/17 19:45 Temperature Pulse Rate 97 H 96 H 99 H Respiratory Rate 20 3 L 13 Blood Pressure 92/53 L 92/54 L Pulse Oximetry 96 96 93 L 10/06/17 20:00 10/06/17 20:15 10/06/17 20:30 Temperature 98.9 F Pulse Rate 98 H 96 H 95 H Respiratory Rate 0 L 0 L 0 L Blood Pressure 87/48 L 89/52 L 90/52 L Pulse Oximetry 93 L 93 L 93 L 10/06/17 20:45 10/06/17 21:00 10/06/17 21:15 Temperature Pulse Rate 94 H 95 H 99 H Respiratory Rate 0 L 0 L 1 L Blood Pressure 86/51 L 87/51 L 88/53 L Pulse Oximetry 93 L 94 L 94 L 10/06/17 21:30 10/06/17 21:45 10/06/17 22:00 Temperature Pulse Rate 100 H 98 H 100 H Respiratory Rate 0 L 0 L 6 L Blood Pressure 91/53 L 94/50 L 92/55 L Pulse Oximetry 94 L 93 L 94 L 10/06/17 22:15 10/06/17 22:30 10/06/17 22:45 Temperature Pulse Rate 97 H 96 H 101 H Respiratory Rate 0 L 1 L 10 L Blood Pressure 91/55 L 90/52 L 100/50 L Pulse Oximetry 95 95 97 10/06/17 23:00 10/06/17 23:15 10/06/17 23:16 Temperature Pulse Rate 98 H 97 H 96 H Respiratory Rate 3 L 0 L 20 Blood Pressure 89/49 L 90/53 L Pulse Oximetry 95 95 95 10/06/17 23:30 10/06/17 23:45 10/07/17 00:00 Temperature 98.8 F Pulse Rate 99 H 97 H 100 H Respiratory Rate 3 L 1 L 11 L Blood Pressure 86/51 L 87/52 L 89/50 L Pulse Oximetry 95 94 L 94 L 10/07/17 00:15 10/07/17 00:30 10/07/17 00:45 Temperature Pulse Rate 99 H 97 H 99 H Respiratory Rate 4 L 1 L 15 Blood Pressure 89/54 L 88/53 L 84/47 L Pulse Oximetry 93 L 94 L 93 L 10/07/17 00:46 10/07/17 00:47 10/07/17 01:00 Temperature Pulse Rate 100 H 99 H 97 H Respiratory Rate 12 12 10 L Blood Pressure 83/48 L 84/50 L 88/53 L Pulse Oximetry 93 L 94 L 94 L 10/07/17 01:15 10/07/17 01:30 10/07/17 01:45 Temperature Pulse Rate 99 H 101 H 101 H Respiratory Rate 29 H 7 L 3 L Blood Pressure 104/61 95/55 L 97/53 L Pulse Oximetry 93 L 94 L 92 L 10/07/17 02:00 10/07/17 02:15 10/07/17 02:30 Temperature Pulse Rate 99 H 94 H 92 H Respiratory Rate 5 L 0 L 22 Blood Pressure 92/54 L 88/53 L 88/53 L Pulse Oximetry 93 L 94 L 94 L 10/07/17 02:45 10/07/17 02:46 10/07/17 02:48 Temperature Pulse Rate 90 90 90 Respiratory Rate 4 L 0 L 1 L Blood Pressure 84/45 L 84/46 L 85/47 L Pulse Oximetry 94 L 94 L 94 L 10/07/17 02:49 10/07/17 02:50 10/07/17 03:00 Temperature Pulse Rate 90 90 90 Respiratory Rate 0 L 0 L 0 L Blood Pressure 87/48 L 88/53 L 90/55 L Pulse Oximetry 94 L 94 L 94 L 10/07/17 03:15 10/07/17 03:24 10/07/17 03:30 Temperature Pulse Rate 94 H 91 H 97 H Respiratory Rate 16 20 5 L Blood Pressure 103/51 L 97/55 L Pulse Oximetry 93 L 94 L 93 L 10/07/17 03:45 10/07/17 04:00 10/07/17 04:15 Temperature 98.6 F Pulse Rate 98 H 93 H 93 H Respiratory Rate 4 L 0 L 15 Blood Pressure 98/51 L 95/51 L 89/54 L Pulse Oximetry 93 L 95 95 10/07/17 04:31 10/07/17 04:45 10/07/17 05:00 Temperature Pulse Rate 100 H 96 H 97 H Respiratory Rate 21 0 L 0 L Blood Pressure 101/52 L 84/47 L 84/49 L Pulse Oximetry 97 95 95 10/07/17 05:15 10/07/17 05:30 10/07/17 05:45 Temperature Pulse Rate 101 H 97 H 97 H Respiratory Rate 7 L 0 L 1 L Blood Pressure 88/49 L 89/50 L 88/52 L Pulse Oximetry 93 L 94 L 92 L 10/07/17 06:00 10/07/17 06:01 10/07/17 06:15 Temperature Pulse Rate 99 H 100 H 98 H Respiratory Rate 11 L 8 L 12 Blood Pressure 77/44 L 96/52 L 91/49 L Pulse Oximetry 93 L 92 L 93 L 10/07/17 06:30 10/07/17 06:31 10/07/17 06:32 Temperature Pulse Rate 100 H 101 H 101 H Respiratory Rate 0 L 14 10 L Blood Pressure 79/44 L 90/52 L 93/53 L Pulse Oximetry 93 L 93 L 95 10/07/17 06:45 10/07/17 07:00 10/07/17 07:15 Temperature Pulse Rate 102 H 97 H 96 H Respiratory Rate 9 L 4 L 4 L Blood Pressure 98/50 L 91/51 L 93/49 L Pulse Oximetry 94 L 93 L 92 L 10/07/17 07:30 10/07/17 07:45 10/07/17 08:00 Temperature 98.6 F Pulse Rate 96 H 96 H 97 H Respiratory Rate 10 L 5 L 0 L Blood Pressure 87/48 L 90/48 L 87/52 L Pulse Oximetry 92 L 93 L 94 L 10/07/17 08:15 10/07/17 08:30 10/07/17 08:45 Temperature Pulse Rate 94 H 97 H 96 H Respiratory Rate 14 0 L 17 Blood Pressure 85/49 L 84/51 L 86/48 L Pulse Oximetry 94 L 94 L 93 L 10/07/17 09:00 10/07/17 09:15 10/07/17 09:30 Temperature Pulse Rate 96 H 98 H 98 H Respiratory Rate 16 16 15 Blood Pressure 88/52 L 92/54 L 88/49 L Pulse Oximetry 93 L 92 L 92 L 10/07/17 09:45 10/07/17 10:00 10/07/17 10:15 Temperature Pulse Rate 97 H 112 H 112 H Respiratory Rate 16 17 18 Blood Pressure 88/50 L 99/53 L 95/55 L Pulse Oximetry 94 L 92 L 91 L 10/07/17 10:30 10/07/17 10:45 10/07/17 11:00 Temperature Pulse Rate 111 H 114 H 110 H Respiratory Rate 9 L 2 L 7 L Blood Pressure 94/58 L 96/59 L 96/60 L Pulse Oximetry 91 L 93 L 91 L 10/07/17 11:15 10/07/17 11:30 10/07/17 11:39 Temperature Pulse Rate 111 H 111 H Respiratory Rate 5 L 10 L 17 Blood Pressure 96/60 L 94/60 L Pulse Oximetry 91 L 89 L 90 L 10/07/17 11:45 10/07/17 12:00 10/07/17 12:15 Temperature Pulse Rate 111 H 116 H 120 H Respiratory Rate 0 L 18 19 Blood Pressure 89/51 L 92/52 L 96/53 L Pulse Oximetry 90 L 93 L 89 L 10/07/17 12:30 10/07/17 12:45 10/07/17 12:50 Temperature Pulse Rate 119 H 120 H Respiratory Rate 19 17 Blood Pressure 105/55 L 105/59 L Pulse Oximetry 89 L 89 L 93 L 10/07/17 13:00 10/07/17 13:15 10/07/17 13:30 Temperature Pulse Rate 116 H 115 H 115 H Respiratory Rate 18 17 17 Blood Pressure 102/61 104/64 103/64 Pulse Oximetry 94 L 94 L 93 L 10/07/17 13:45 10/07/17 14:00 10/07/17 14:15 Temperature Pulse Rate 114 H 101 H 102 H Respiratory Rate 17 18 18 Blood Pressure 99/62 L 96/60 L 99/56 L Pulse Oximetry 92 L 91 L 91 L 10/07/17 14:30 10/07/17 14:45 10/07/17 15:00 Temperature Pulse Rate 101 H 101 H 102 H Respiratory Rate 18 18 18 Blood Pressure 92/52 L 93/52 L 97/51 L Pulse Oximetry 91 L 90 L 92 L 10/07/17 15:22 Temperature Pulse Rate 104 H Respiratory Rate 18 Blood Pressure Pulse Oximetry 92 L Intake & Output 10/06/17 10/07/17 10/07/17 18:59 06:59 18:59 Intake Total 1104.6 / 1104.6 383.4 / 383.4 150 / 150 Output Total 645 / 645 225 / 225 Balance 459.6 / 459.6 158.4 / 158.4 150 / 150 Weight 78.8 kg Intake: IV 1104.6 / 1104.6 383.4 / 383.4 150 / 150 Normosol-R Inj 1,000 ML @ 84 421 / 421 mls/hr IV.CONT .[id number] [facility] Rx# :[id number] Protonix Inj 80 MG In NS Inj 128 / 128 100 ML @ 10 mls/hr IV.CONT CONT [facility] Rx#:[id number] Neosynephrine Inj 160 MG In D5W 339 / 339 Inj 484 ML @ 40 MCG/MIN 7.5 mls/hr IV.CONT TITRATE PRN Rx#: [id number] Neosynephrine Inj 160 MG In NS 151 / 151 349 / 349 Inj 484 ML @ 40 MCG/MIN 7.5 mls /hr IV.CONT TITRATE PRN Rx#: [id number] Diprivan 1000 mg/100 ml Inj 1, 65.6 / 65.6 34.4 / 34.4 000 mg In 100 ml @ 5 MCG/KG/MIN 2.034 mls/hr IV.CONT TITRATE PRN Rx#:[id number] Flexbumin 25% Inj 100 ML @ 60 100 / 100 mls/hr IV.SIG Q12H [facility] Rx#: [id number] Zosyn 3.375 GM Premix 50 ML @ 50 / 50 100 mls/hr IV.SIG Q8H [facility] Rx#: [id number] Output: Urine 75 / 75 Emesis 150 / 150 Urine Amount (Catheter) 625 / 625 Indwelling Urethral Catheter 625 / 625 Gastric Drainage 20 / 20 Right Nare Nasogastric Tube 20 / 20 Other: # Bowel Movements 0 - Constitutional no acute distress - Routine HEENT Exam Head: Present: normocephalic Eye: Present: conjunctival icterus - Routine Neck Exam Present: supple - Routine Respiratory Exam Present: decreased breath sounds - Routine Cardiovascular Exam Present: tachycardia - Routine Abdominal Exam Present: soft, distended - Routine Extremities Exam Present: edema - Routine Skin Exam Present: jaundice Results - Lab Results 10/07/17 04:25 10/07/17 15:15 Most recent lab results Calcium 7.5 mg/dL (8.5-10.1) L 10/07/17 15:15 Phosphorus 3.0 mg/dL (2.5-4.9) D 10/05/17 10:44 Magnesium 1.6 mg/dL (1.5-2.5) 10/05/17 10:44 Assessment and Plan - Assessment (1) Acute renal failure Code(s): N17.9 - Acute kidney failure, unspecified Status: Acute (2) Hepatorenal failure Code(s): K76.7 - Hepatorenal syndrome Status: Acute (3) Respiratory failure Code(s): J96.90 - Respiratory failure, unspecified, unspecified whether with hypoxia or hypercapnia Status: Acute (4) Acute GI bleeding Code(s): K92.2 - Gastrointestinal hemorrhage, unspecified Status: Acute - Plan Discussed with nursing staff and Dr. Guardado, Dr. Guardado earlier indicated aggressive care however family has met with palliative care and decided to do comfort measures per nursing staff, I have placed orders for dialysis in case if they need more aggressive care however we do not have a consent and plan is patient has advanced multiorgan failure and palliative care for now Please reconsult if you need further input from nephrology
[2017-10-07 19:36] LABS: Hepatitis A IgM Antibody Nonreactive (Nonreactive); Hepatitits B Surface Antigen Nonreactive (Nonreactive)
[2017-10-07] MEDS: Dextrose 50% in Water 50 ML Vial IV.PUSH PRN (23:30)
[2017-10-07] MEDS ORDERED: Phenylephrine Inj 160 MG in Dextrose 5% in Water Inj 484 ML IV.CONT PRN ×2 (23:49)
[2017-10-08] MEDS: Pantoprazole Inj 40 MG Vial IV.PUSH SCH (00:30)
[2017-10-08] MEDS: Oral Hygiene Kit OROPHARYNG SCH (00:30)
[2017-10-08] MEDS: Piperacil/Tazo 3.375 GM Premix 50 ML IV.SIG SCH (00:31)
[2017-10-08] MEDS: Insulin NovoLOG Aspart Correctional Sugar Inj SQ SCH ×2 (00:31→05:33)
[2017-10-08] MEDS ORDERED: Vasopressin Inj 40 UNIT in Dextrose 5% in Water Inj 98 ML IV.CONT SCH ×2 (01:00)
[2017-10-08 01:41] LABS: ABG PCO2 36 mmHg (38-42); ABG PO2 149 mmHg (61-120)
[2017-10-08] MEDS: Dextrose 50% in Water 50 ML Vial IV.PUSH PRN (05:32)
[2017-10-08] MEDS: fentaNYL 10 mcg/mL Premix Drip 2,500 MCG/250 ML BAG IV.SIG PRN (05:34)
--- NOTE | 2017-10-08 06:40 | P.PNCC ---
Subjective Subjective Remarks/Hospital Course: 10/03: This is a 52-year-old female. Date of admission 10/03/2017. Past medical history includes hepatitis, colitis, acute blood loss anemia and prior GI bleed. According to mother at bedside, patient has been having coffee- ground emesis and bleeding from her rectum since 3:00 this morning. She states she paid housekeeping $20 to clean up the amount of blood. Patient complains of abdominal pain that is dull, constant. Symptom onset was sudden, symptoms are moderate in nature. EMS stated the patient's blood pressure was in the 80s systolic when they arrived on scene. Patient received a liter of IV fluids in route to the hospital. Received an additional 3 L normal saline in ED. Hemoglobin was noted to be 4.7. Platelets are low at 94. Currently receiving 40 PRBCs and 2 FFP stat. Patient is placed on a pantoprazole drip 8 mg an hour after receiving 80 mg IV bolus and an octreotide drip at 50 mcg/h. Denied chest pain or shortness of breath. Currently hemodynamics stabilize. Patient is also to have an elevated ammonia level and elevated lipase with a low albumin and magnesium. 10/04: Evaluated this morning prior to EGD. Awake and alert. Titrate blood noted being suctioned out of NG tube. Received 4 units PRBCs, FFP and cryoprecipitate overnight. 10/05: Remains sedated, orally intubated on mechanical ventilation. Transfused 2 units PRBCs and 1 unit cryoprecipitate yesterday afternoon. Hemoglobin greater than 8 this morning. Had some bright red blood suctioned out of OG tube overnight about half a cupful per power and recovery shift engineer RN. 10/06: Remains sedated, orally intubated on mechanical ventilation. Worsening respiratory status. On 75% FiO2 this morning. I increased the PEEP from +5-+ 12 this morning. Saline lock IV fluids Lasix 40 mg IV x1. Remains on [place]- Synephrine for hypotension. 10/07: Remains severely hypoxemic critically ill. Currently FiO2 70% PEEP of 12. Remains on [place]-Synephrine at 220 mcg/min. Oliguric creatinine increased to 2.22. Inadequate response to IV push of Lasix. Increase PEEP to 14, start Bumex infusion, get nephrology consult. Broad-spectrum antibiotics with Zosyn and DC Rocephin Subjective: 8/18 Anuric over the last 6 hours despite Bumex drip. Remains on vasopressin 0.04 units/, neosynephrine 300 mcg/min, and levophed 15 mcg/min with MAP 44. Mother at bedside desires withdrawal. She is on PEEP 14 FIO2 100% sats 93%. Objective Vital Signs / I&O: Vital Signs 10/07/17 06:45 10/07/17 07:00 10/07/17 07:15 Temperature Pulse Rate 102 H 97 H 96 H Respiratory Rate 9 L 4 L 4 L Blood Pressure 98/50 L 91/51 L 93/49 L Pulse Oximetry 94 L 93 L 92 L 10/07/17 07:30 10/07/17 07:45 10/07/17 08:00 Temperature 98.6 F Pulse Rate 96 H 96 H 97 H Respiratory Rate 10 L 5 L 0 L Blood Pressure 87/48 L 90/48 L 87/52 L Pulse Oximetry 92 L 93 L 94 L 10/07/17 08:15 10/07/17 08:30 10/07/17 08:45 Temperature Pulse Rate 94 H 97 H 96 H Respiratory Rate 14 0 L 17 Blood Pressure 85/49 L 84/51 L 86/48 L Pulse Oximetry 94 L 94 L 93 L 10/07/17 09:00 10/07/17 09:15 10/07/17 09:30 Temperature Pulse Rate 96 H 98 H 98 H Respiratory Rate 16 16 15 Blood Pressure 88/52 L 92/54 L 88/49 L Pulse Oximetry 93 L 92 L 92 L 10/07/17 09:45 10/07/17 10:00 10/07/17 10:15 Temperature Pulse Rate 97 H 112 H 112 H Respiratory Rate 16 17 18 Blood Pressure 88/50 L 99/53 L 95/55 L Pulse Oximetry 94 L 92 L 91 L 10/07/17 10:30 10/07/17 10:45 10/07/17 11:00 Temperature Pulse Rate 111 H 114 H 110 H Respiratory Rate 9 L 2 L 7 L Blood Pressure 94/58 L 96/59 L 96/60 L Pulse Oximetry 91 L 93 L 91 L 10/07/17 11:15 10/07/17 11:30 10/07/17 11:39 Temperature Pulse Rate 111 H 111 H Respiratory Rate 5 L 10 L 17 Blood Pressure 96/60 L 94/60 L Pulse Oximetry 91 L 89 L 90 L 10/07/17 11:45 10/07/17 12:00 10/07/17 12:15 Temperature Pulse Rate 111 H 116 H 120 H Respiratory Rate 0 L 18 19 Blood Pressure 89/51 L 92/52 L 96/53 L Pulse Oximetry 90 L 93 L 89 L 10/07/17 12:30 10/07/17 12:45 10/07/17 12:50 Temperature Pulse Rate 119 H 120 H Respiratory Rate 19 17 Blood Pressure 105/55 L 105/59 L Pulse Oximetry 89 L 89 L 93 L 10/07/17 13:00 10/07/17 13:15 10/07/17 13:30 Temperature Pulse Rate 116 H 115 H 115 H Respiratory Rate 18 17 17 Blood Pressure 102/61 104/64 103/64 Pulse Oximetry 94 L 94 L 93 L 10/07/17 13:45 10/07/17 14:00 10/07/17 14:15 Temperature Pulse Rate 114 H 101 H 102 H Respiratory Rate 17 18 18 Blood Pressure 99/62 L 96/60 L 99/56 L Pulse Oximetry 92 L 91 L 91 L 10/07/17 14:30 10/07/17 14:45 10/07/17 15:00 Temperature Pulse Rate 101 H 101 H 102 H Respiratory Rate 18 18 18 Blood Pressure 92/52 L 93/52 L 97/51 L Pulse Oximetry 91 L 90 L 92 L 10/07/17 15:15 10/07/17 15:22 10/07/17 15:30 Temperature Pulse Rate 104 H 104 H 107 H Respiratory Rate 19 18 19 Blood Pressure 97/53 L 107/60 Pulse Oximetry 92 L 92 L 92 L 10/07/17 15:45 10/07/17 16:00 10/07/17 16:15 Temperature 98.2 F Pulse Rate 106 H 107 H 103 H Respiratory Rate 16 16 4 L Blood Pressure 101/59 L 100/57 L 96/55 L Pulse Oximetry 90 L 93 L 93 L 10/07/17 16:30 10/07/17 16:45 10/07/17 17:00 Temperature Pulse Rate 104 H 104 H 104 H Respiratory Rate 14 17 7 L Blood Pressure 95/53 L 96/50 L 96/52 L Pulse Oximetry 91 L 92 L 92 L 10/07/17 17:15 10/07/17 17:30 08/17/18 17:45 Temperature Pulse Rate 106 H 109 H 112 H Respiratory Rate 8 L 11 L 15 Blood Pressure 97/52 L 99/53 L 101/53 L Pulse Oximetry 91 L 92 L 92 L 10/07/17 18:00 10/07/17 18:15 10/07/17 18:30 Temperature Pulse Rate 114 H 116 H 116 H Respiratory Rate 15 18 18 Blood Pressure 107/54 L 109/53 L 111/56 L Pulse Oximetry 93 L 94 L 94 L 10/07/17 18:45 10/07/17 19:00 10/07/17 19:15 Temperature Pulse Rate 115 H 116 H 118 H Respiratory Rate 16 18 18 Blood Pressure 111/56 L 109/55 L 107/52 L Pulse Oximetry 94 L 95 95 10/07/17 19:30 10/07/17 19:45 10/07/17 19:51 Temperature Pulse Rate 119 H 117 H 117 H Respiratory Rate 12 5 L 17 Blood Pressure 104/51 L 99/53 L Pulse Oximetry 93 L 93 L 95 10/07/17 20:00 10/07/17 20:15 10/07/17 20:30 Temperature 99.2 F Pulse Rate 118 H 118 H 121 H Respiratory Rate 10 L 17 16 Blood Pressure 101/50 L 102/51 L 99/54 L Pulse Oximetry 94 L 94 L 93 L 10/07/17 20:45 10/07/17 21:00 10/07/17 21:15 Temperature Pulse Rate 121 H 120 H 119 H Respiratory Rate 17 17 17 Blood Pressure 104/52 L 98/51 L 96/50 L Pulse Oximetry 93 L 92 L 93 L 10/07/17 21:30 10/07/17 21:45 10/07/17 22:00 Temperature Pulse Rate 119 H 121 H 121 H Respiratory Rate 16 15 16 Blood Pressure 95/53 L 98/52 L 93/51 L Pulse Oximetry 93 L 92 L 93 L 10/07/17 22:15 10/07/17 22:30 10/07/17 22:45 Temperature Pulse Rate 123 H 123 H 124 H Respiratory Rate 15 15 16 Blood Pressure 95/52 L 93/51 L 92/54 L Pulse Oximetry 93 L 93 L 93 L 10/07/17 23:00 10/07/17 23:15 10/07/17 23:30 Temperature Pulse Rate 125 H 126 H 122 H Respiratory Rate 17 17 21 Blood Pressure 92/53 L 91/54 L 87/46 L Pulse Oximetry 94 L 92 L 93 L 10/07/17 23:45 10/08/17 00:00 10/08/17 00:14 Temperature 99.4 F Pulse Rate 130 H 130 H 132 H Respiratory Rate 15 12 12 Blood Pressure 91/48 L 92/52 L Pulse Oximetry 95 91 L 92 L 10/08/17 00:15 10/08/17 00:30 10/08/17 00:45 Temperature Pulse Rate 132 H 132 H 130 H Respiratory Rate 14 12 11 L Blood Pressure 95/53 L 92/52 L 82/45 L Pulse Oximetry 92 L 93 L 94 L 10/08/17 00:48 10/08/17 00:49 10/08/17 00:50 Temperature Pulse Rate 130 H 130 H 132 H Respiratory Rate 11 L 12 11 L Blood Pressure 85/47 L 85/47 L 88/53 L Pulse Oximetry 94 L 94 L 93 L 10/08/17 00:55 10/08/17 01:00 10/08/17 01:05 Temperature Pulse Rate 130 H 129 H 128 H Respiratory Rate 11 L 11 L 14 Blood Pressure 88/52 L 87/50 L 85/53 L Pulse Oximetry 94 L 94 L 95 10/08/17 01:10 10/08/17 01:15 10/08/17 01:20 Temperature Pulse Rate 128 H 126 H 127 H Respiratory Rate 15 15 15 Blood Pressure 81/51 L 84/47 L 82/47 L Pulse Oximetry 95 95 95 10/08/17 01:25 10/08/17 01:30 10/08/17 01:35 Temperature Pulse Rate 127 H 126 H 127 H Respiratory Rate 15 15 10 L Blood Pressure 83/47 L 83/46 L 87/49 L Pulse Oximetry 95 95 94 L 10/08/17 01:39 10/08/17 01:40 10/08/17 02:00 Temperature Pulse Rate 127 H 127 H 124 H Respiratory Rate 15 11 L 15 Blood Pressure 86/46 L 89/54 L 91/50 L Pulse Oximetry 95 95 93 L 10/08/17 02:20 10/08/17 02:40 10/08/17 03:00 Temperature Pulse Rate 127 H 128 H 129 H Respiratory Rate 13 10 L 12 Blood Pressure 97/50 L 101/53 L 101/57 L Pulse Oximetry 94 L 94 L 95 10/08/17 03:20 10/08/17 03:40 10/08/17 04:00 Temperature Pulse Rate 132 H 131 H 132 H Respiratory Rate 13 12 12 Blood Pressure 100/59 L 98/49 L 98/49 L Pulse Oximetry 95 95 95 10/08/17 06:00 Temperature Pulse Rate 135 H Respiratory Rate Blood Pressure Pulse Oximetry Intake & Output 10/07/17 10/07/17 10/08/17 06:59 18:59 06:59 Intake Total 383.4 / 383.4 500 / 500 750 / 750 Output Total 225 / 225 150 / 150 30 / 30 Balance 158.4 / 158.4 350 / 350 720 / 720 Weight 78.8 kg 78 kg Intake: IV 383.4 / 383.4 500 / 500 750 / 750 Neosynephrine Inj 160 MG In NS 349 / 349 250 / 250 Inj 484 ML @ 40 MCG/MIN 7.5 mls /hr IV.CONT TITRATE PRN Rx#: [id number] Diprivan 1000 mg/100 ml Inj 1, 34.4 / 34.4 000 mg In 100 ml @ 5 MCG/KG/MIN 2.034 mls/hr IV.CONT TITRATE PRN Rx#:[id number] Flexbumin 25% Inj 100 ML @ 60 100 / 100 100 / 100 mls/hr IV.SIG Q12H NIELS Rx#: [id number] Zyvox 600 mg Premix 300 ML @ 300 / 300 300 mls/hr IV.SIG Q12H NIELS Rx#: [id number] Zosyn 3.375 GM Premix 50 ML @ 100 / 100 50 / 50 100 mls/hr IV.SIG Q8H NIELS Rx#: [id number] Rocephin Inj 1,000 MG In NS Inj 100 / 100 100 ML @ 200 mls/hr IV.SIG Q24H NIELS Rx#:[id number] fentaNYL 10 mcg/mL Premix Drip 250 / 250 2,500 mcg In 250 ml @ 50 MCG/HR 5 mls/hr IV.SIG TITRATE PRN Rx #:[id number] Output: Urine 75 / 75 75 / 75 30 / 30 Emesis 150 / 150 Gastric Drainage 75 / 75 Right Nare Nasogastric Tube 75 / 75 Other: # Bowel Movements 0 Result Diagrams: 10/07/17 04:25 10/07/17 15:15 Objective Remarks: GEN: Critically ill 52-year-old female with anasarca. who is on ventilator with high PEEP and high FiO2 HEENT: Pallor present, jaundiced, icteric, tongue/ mucosa moist. Orotracheally intubated Neck: Right IJ Cordis in place Chest/Pulm: on mech vent, diminished air entry bilaterally with scattered bilateral rales and rhonchi. CVS: S1-S2 regular, no murmur. GI/abdomen: Distended, no apparent tender, bowel sounds sluggish Extremities: Warm bilaterally, 2+ edema throughout. Neuro: Intubated. Sedated for comfort per mother's request. Nonresponsive, no eye opening. Assessment and Plan - Assessment and Plan Plan: Neuro/Psych: Acute encephalopathy secondary elevated ammonia Continue sedation for comfort, on fentanyl drip. Ativan prn. Vitamin bag daily 3 dosages CV: Septic shock Fluid overload Significant positive fluid balance since admission with IV fluids as well as blood products. Inadequate response to IV Lasix. Bumex 2 mg IV push and start infusion at 1 mg/h, remains anuric. IV albumin 25 g every 12 On [place]-Synephrine , vasopressin, levophed and yet remains hypotensive. Mother desires transition to comfort. Resp: Acute hypoxemic respiratory failure on mechanical ventilation ARDS/TRALI Fluid overload Ongoing tobaccoism Started Solu-Medrol 80 mg IV every 12 hourly after 125 mg IV 1. Albuterol/ipratropium aerosols every 4 hours with albuterol aerosols every 2 hours as needed for dyspnea PEEP +14, titrate FiO2 to keep O2 sat greater than 90%, currently on 100% oxygen GI: Gastric ulcer Upper GI bleed History of cirrhosis History of colitis Hypoalbuminemia Hyper ammonia Elevated lipase Elevated total bilirubin Currently on pantoprazole drip at 8 mg an hour after receiving 80 mg bolus. Stopped octreotide drip on 10/06. GI following. EGD 10/04 revealed large gastric ulcer in the antrum. Epinephrine injected at the base of ulcer with visible vessel. GI signed off. Having BM with lactulose Endo: Sliding scale insulin with Accu-Cheks to maintain euglycemia Renal: Strict intake output, monitor and replete electrolytes, follow BUN/creatinine. No response to 2 doses of IV Lasix. IV Bumex drip as above Replace electrolytes per ICU electrolyte protocol Nephrology was following, mother refuses dialysis. Heme: Leukocytosis macrocytic anemia/acute blood loss anemia Thrombocytopenia s/p 4 PRBCs/2 FFP along with 10 mg vitamin K IV 1 on 10/03. 2 units PRBCs 1 unit cryoprecipitate transfused on 10/04. Follow serial CBC and coags ID: Septic shock MRSA pneumonia. On renally dosed Zosyn and on linezolid. Access -Right IJ cordis in place Prophylaxis -GI -pantoprazole drip - -DVT SCD/holding pharmacological prophylaxis light of acute hemorrhage Palliative care following. Patient has end-stage cirrhosis and multiorgan failure. She is not capacitated for medical decision-making. Her mother is at bedside and states that they have always been very close and she knows that her daughter would desire transition to comfort measures at this time. She would like to discontinue vasopressors, provide comfort medications, terminal extubation. I have signed exhibits. Will fax exhibits to palliative care team. Change code status to DNR. Level 3 follow-up
[2017-10-08 07:09] LABS: Activated Partial Thrombo Time 67.6 sec (24.3-30.1); INR 3.4 Ratio
[2017-10-08 07:10] LABS: Alanine Aminotransferase 232 U/L (10-53); Albumin 2.5 g/dL (3.4-5.0); Alkaline Phosphatase 103 U/L (45-117); Anion Gap 18 meq/L (5-15); Blood Urea Nitrogen 88 mg/dL (7-18); Calcium 7.5 mg/dL (8.5-10.1); Carbon Dioxide 13.1 meq/L (21.0-32.0); Chloride 119 meq/L (98-107); Glomerular Filtration Rate 13 mL/min (>89); Magnesium 2.1 mg/dL (1.5-2.5); Sodium 150 meq/L (136-145); Total Protein 4.5 g/dL (6.4-8.2)
[2017-10-08 07:11] LABS: Prothrombin Time 34.4 sec (9.8-11.6)
[2017-10-08 07:18] LABS: Potassium 5.7 meq/L (3.5-5.1)
[2017-10-08 07:20] LABS: Aspartate Aminotransferase 1180 U/L (15-37); Glucose,Random 40 mg/dL (74-106)
--- NOTE | 2017-10-08 17:49 | P.DN ---
Discharge Sum: Prov - Provider Primary care physician: UNKNOWN Admitting clinician: Myron Stapleton Consults: 10/03/17 18:50 Consult to Gastroenterology Routine Consulting Provider: Aquiles Joyner Preferred Fell Cutter:: Aquiles Joyner Reason for Consultation: upper and lower gi bleed aware Notified:: Service Spoke with:: Ana M Date Notified:: 10/03/17 Time Notified:: 18:59 Ordering Provider: TAMY 10/06/17 07:46 Consult to Palliative Care Routine Consulting Provider: Filiberto Ramos Reason for Consultation: goals of care Notified:: Service Spoke with:: Domi Date Notified:: 10/06/17 Time Notified:: 08:12 Ordering Provider: MATT 10/07/17 08:09 Consult to Nephrology Routine Consulting Provider: Eboni Abad Does the patient have a [employer] Principal who follows them?: Yes Preferred Nephrology Fell Cutter:: Ager Tender Physician Reason for Consultation: Renal failure Notified:: Service Spoke with:: pradip Date Notified:: 10/07/17 Time Notified:: 08:45 Ordering Provider: GOPI Pronouncing clinician: Radha Ayers Discharge Sum: Diag - PCOD Cause of : Cardiac arrest Discharge Sum: Summary - Date and Time Date of admission: 10/03/17 19:12 Date of : 10/08/17 Time of : 08:30 - Additional Data Confirmation of as documented by pronouncing clinician: no pulse, no respirations Family: at bedside Attending/PCP notified?: Yes Attending physician: Myron Stapleton MD Was code activated?: No Autopsy requested?: No roll examiner notified?: Yes Organ bank notified?: Yes Advance directives: No Hospice patient?: No
== END 2017-10-08 08:30 | disposition expired ==
LOC: NEPC 17:16 → NEDA 19:12 → HIMC 20:40
PROVIDERS: ADMIT Internal Medicine Critical Care Medicine; ATTEND Internal Medicine Critical Care Medicine
PROC: PANENDO (2017-10-04 08:39)